=== PATIENT | male | born 1950 | race African-American/Black ===

== ENCOUNTER 2017-12-10 18:55 | Inpatient (IN) | payer MEDICARE, OTHER ==
[~2017-12-10] VITALS: Ht 185.4 cm; Wt 91.5 kg
[~2017-12-10 18:55] MED LIST: ASPI81TA10; ATOR40TA52; CARV3.1240; FER325T PO; FURO80TA3; GABA300C11 PO; NIFE30TA76; THI100I PO; [UNRECOGNIZED DRUG - CODE] OR
[2017-12-10 20:37] LABS: Urine Bacteria NONE SEEN /hpf (None Seen); Urine Blood 2+ /uL (Negative); Urine WBC 5 /hpf (0 - 3)
[2017-12-10 21:07] LABS: Basophils # (auto) 0 uL; Eosinophils # (auto) 0.1 uL; Hemoglobin 7.9 g/dL (13.5-17.5); Lymphocytes # (auto) 0.8 uL; Monocytes # (auto) 0.6 uL; Neutrophils # (auto) 1.7 uL; White Blood Cell 3.2 10^3/uL (4.4-10.8)
[2017-12-10 21:09] LABS: Basophils % (auto) 1.5 % (0.0-2.0); Eosinophils % (auto) 3.2 % (0.0-7.0); Hematocrit 24.3 % (41.0-53.0); Lymphocytes % (auto) 25.3 % (10.0-50.0); Mean Corpuscular Hemoglobin 34.8 pg (28.0-32.0); Mean Corpuscular Hgb Conc. 32.4 g/dL (32.0-36.0); Mean Corpuscular Volume 107.7 fL (80.0-100.0); Monocytes % (auto) 17.8 % (0.0-12.0); Neutrophils % (auto) 52.2 % (37.0-80.0); Nucleated Red Blood Cells % 0.2 %; Platelet Count (auto) 176 10^3/uL (140-450); Red Blood Cells 2.25 10^6/uL (4.5-5.90)
[2017-12-10 21:15] LABS: Red Cell Distribution Width 21.9 % (11.8-14.3)
[2017-12-10 21:19] LABS: Albumin 3.3 g/dL (3.4-5.0); Calcium 8.3 mg/dL (8.5-10.1); Magnesium 1.9 mg/dL (1.6-2.6); Potassium 4.6 mmol/L (3.5-5.1)
[2017-12-10 21:24] LABS: Bilirubin, Total 0.8 mg/dL (0.2-1.0)
[2017-12-10 22:34] LABS: Alcohol, Urine < 3.0 mg/dL (0-5); Amphetamine Screen, Urine NEGATIVE (NEGATIVE); Barbiturate Scree,Urine NEGATIVE (NEGATIVE); Benzodiazephine Screen, Urine POSITIVE (NEGATIVE); Cannabinoid Screen, Urine NEGATIVE (NEGATIVE); Cocaine Screen, Urine NEGATIVE (NEGATIVE); Opiate Scree,Urine NEGATIVE (NEGATIVE); Phencyclidine Screen, Urine NEGATIVE (NEGATIVE)
[2017-12-10 22:39] LABS: Acetaminophen < 2.0 ug/mL (10-30); Salicylate < 1.7 mg/dL (2.8-20.0)
[2017-12-10 23:57] LABS: INR 1.02 (0.9-1.15); Partial Thromboplastin Time 28.6 sec (22.64-33.71); Prothrombin Time 11.1 sec (9.37-12.3)
[2017-12-11] MEDS ORDERED: LABETALOL HCL 5 MG/ML ML 20ML VIAL IV ONE (00:30)
[2017-12-11] MEDS ORDERED: ACETAMINOPHEN 325 MG TAB PO PRN (03:30)
[2017-12-11] MEDS ORDERED: NITROGLYCERIN 0.4 MG SL TAB SL PRN (03:30)
[2017-12-11] MEDS ORDERED: ONDANSETRON HCL 4 MG/2 ML VIAL IV PRN (03:30)
[2017-12-11] MEDS: HYDROcodone-ACET 5/325MG TAB PO PRN ×2 (04:20→07:11)
[2017-12-11] MEDS: FERROUS SULFATE 325 MG TAB PO SCH ×2 (08:00→18:39)
[2017-12-11 09:00] VITALS: BP 158/98
[2017-12-11] MEDS: ASPirin 81 mg TAB PO SCH ×2 (10:00→11:02)
[2017-12-11] MEDS ORDERED: HEPARIN SODIUM (PORCINE) 5000 UNITS/ML 1ML VIAL SC SCH (10:00)
[2017-12-11] MEDS: PANTOPRAZOLE 40 MG/10 ML VIAL IV SCH (10:33)
[2017-12-11] MEDS: FUROSEMIDE 40 MG TAB PO SCH (11:01)
[2017-12-11] MEDS: NIFEdipine ER 30 MG TAB PO SCH (11:01)
[2017-12-11] MEDS: CARVEDILOL 3.125 MG TAB PO SCH ×2 (11:02→21:04)
[2017-12-11 13:18] VITALS: BP 186/116
[2017-12-11] MEDS ORDERED: cloNIDine 0.2 mg/24hr 7DAY PATCH TD SCH (14:30)
[2017-12-11] MEDS ORDERED: EPOETIN ALFA 10,000 UNIT/1 ML VIAL IV ONE (14:45)
[2017-12-11] MEDS ORDERED: SODIUM CHL 0.9% 1000 ML BAG XX ONE (14:45)
[2017-12-11 16:15] VITALS: BP 132/78
[2017-12-11 16:21] VITALS: BP 142/99
[2017-12-11] MEDS ORDERED: LORazepam 2MG/ML-1ML VIAL IV PRN (19:30)
[2017-12-11] MEDS: ATORVASTATIN 20 MG TAB PO SCH (21:04)
[2017-12-11 22:00] VITALS: BP 160/113
[2017-12-11] MEDS: THIAMINE INJ 100 MG, MULTIPLE VITAMIN 10 ML, FOLIC ACID 1 MG, MAGNESIUM SULF SDV 50% 8 ... IV SCH ×5 (22:54)
[2017-12-11] MEDS ORDERED: METOPROLOL TARTRATE 1MG/1ML-5ML VIAL IV ONE (23:15)
[2017-12-12] VITALS (7 sets, daily range): BP systolic 134–162; BP diastolic 87–104
[2017-12-12 07:35] LABS: Basophils # (auto) 0.1 uL; Basophils % (auto) 1.4 % (0.0-2.0); Eosinophils # (auto) 0.1 uL; Eosinophils % (auto) 2.3 % (0.0-7.0); Hematocrit 26.8 % (41.0-53.0); Hemoglobin 8.9 g/dL (13.5-17.5); Lymphocytes # (auto) 0.6 uL; Lymphocytes % (auto) 16.6 % (10.0-50.0); Mean Corpuscular Hemoglobin 35.3 pg (28.0-32.0); Mean Corpuscular Hgb Conc. 33.1 g/dL (32.0-36.0); Mean Corpuscular Volume 106.6 fL (80.0-100.0); Monocytes # (auto) 0.5 uL; Monocytes % (auto) 12.7 % (0.0-12.0); Neutrophils # (auto) 2.5 uL; Nucleated Red Blood Cells % 0.1 %; Platelet Count (auto) 205 10^3/uL (140-450); Red Blood Cells 2.52 10^6/uL (4.5-5.90); White Blood Cell 3.8 10^3/uL (4.4-10.8)
[2017-12-12 07:37] LABS: Red Cell Distribution Width 21.8 % (11.8-14.3)
[2017-12-12 08:05] LABS: Albumin 2.9 g/dL (3.4-5.0); BUN/Creatinine Ratio 2.4; Bilirubin, Total 0.8 mg/dL (0.2-1.0); Calcium 7.3 mg/dL (8.5-10.1); Potassium 3.9 mmol/L (3.5-5.1); Total Protein 6.4 g/dL (6.4-8.2)
[2017-12-12] MEDS: FERROUS SULFATE 325 MG TAB PO SCH ×2 (08:53→18:01)
[2017-12-12] MEDS: PANTOPRAZOLE 40 MG/10 ML VIAL IV SCH (10:09)
[2017-12-12] MEDS: FUROSEMIDE 40 MG TAB PO SCH (10:10)
[2017-12-12] MEDS: ASPirin 81 mg TAB PO SCH (10:10)
[2017-12-12] MEDS: CARVEDILOL 3.125 MG TAB PO SCH ×2 (10:11→22:13)
[2017-12-12] MEDS: NIFEdipine ER 30 MG TAB PO SCH (10:11)
[2017-12-12] MEDS: HYDROcodone-ACET 5/325MG TAB PO PRN ×2 (10:48→22:20)
[2017-12-12] MEDS ORDERED: CARVEDILOL 3.125 MG TAB PO ONE (12:15)
[2017-12-12] MEDS: THIAMINE INJ 100 MG, MULTIPLE VITAMIN 10 ML, FOLIC ACID 1 MG, MAGNESIUM SULF SDV 50% 8 ... IV SCH ×5 (22:13)
[2017-12-12] MEDS: ATORVASTATIN 20 MG TAB PO SCH (22:13)
[2017-12-12 23:23] LABS: Urine Bacteria NONE SEEN /hpf (None Seen); Urine Blood 3+ /uL (Negative); Urine Mucus FEW (None Seen); Urine Specific Gravity 1.014 (1.001-1.035); Urine WBC 12 /hpf (0 - 3)
[2017-12-13] MEDS: HYDROcodone-ACET 5/325MG TAB PO PRN ×4 (02:25→20:47)
[2017-12-13 05:00] VITALS: BP 124/85
[2017-12-13 08:00] VITALS: BP 134/90
[2017-12-13 08:38] VITALS: BP 134/90
[2017-12-13] MEDS: FUROSEMIDE 40 MG TAB PO SCH (09:24)
[2017-12-13] MEDS: FERROUS SULFATE 325 MG TAB PO SCH ×2 (09:25→17:29)
[2017-12-13] MEDS: NIFEdipine ER 30 MG TAB PO SCH (09:25)
[2017-12-13] MEDS: ASPirin 81 mg TAB PO SCH (09:25)
[2017-12-13] MEDS: CARVEDILOL 3.125 MG TAB PO SCH ×2 (09:25→21:49)
[2017-12-13] MEDS: PANTOPRAZOLE 40 MG/10 ML VIAL IV SCH (09:26)
[2017-12-13 13:57] VITALS: BP 142/86
[2017-12-13 17:29] VITALS: BP 146/88
[2017-12-13 21:23] VITALS: BP 135/79
[2017-12-13] MEDS: ATORVASTATIN 20 MG TAB PO SCH (21:48)
[2017-12-13] MEDS: THIAMINE INJ 100 MG, MULTIPLE VITAMIN 10 ML, FOLIC ACID 1 MG, MAGNESIUM SULF SDV 50% 8 ... IV SCH ×5 (22:04)
[2017-12-14] MEDS: HYDROcodone-ACET 10/325MG TAB PO PRN ×3 (03:34→20:29)
[2017-12-14 05:05] VITALS: BP 130/87
[2017-12-14 07:56] LABS: Basophils # (auto) 0 uL; Eosinophils # (auto) 0.2 uL; Lymphocytes # (auto) 1.1 uL; Monocytes # (auto) 0.4 uL; Monocytes % (auto) 13.3 % (0.0-12.0); Neutrophils # (auto) 1.5 uL; Nucleated Red Blood Cells % 0.1 %; White Blood Cell 3.4 10^3/uL (4.4-10.8)
[2017-12-14 07:59] LABS: Basophils % (auto) 1.2 % (0.0-2.0); Eosinophils % (auto) 6.4 % (0.0-7.0); Hematocrit 24.4 % (41.0-53.0); Hemoglobin 8.2 g/dL (13.5-17.5); Lymphocytes % (auto) 32.9 % (10.0-50.0); Mean Corpuscular Hemoglobin 35.6 pg (28.0-32.0); Mean Corpuscular Hgb Conc. 33.6 g/dL (32.0-36.0); Neutrophils % (auto) 46.2 % (37.0-80.0); Platelet Count (auto) 186 10^3/uL (140-450)
[2017-12-14 08:12] LABS: BUN/Creatinine Ratio 2.7; Calcium 7.6 mg/dL (8.5-10.1); Magnesium 2.7 mg/dL (1.6-2.6); Potassium 4.6 mmol/L (3.5-5.1)
[2017-12-14 08:29] LABS: Red Cell Distribution Width 21.3 % (11.8-14.3)
[2017-12-14 09:18] VITALS: BP 132/79
[2017-12-14] MEDS: ASPirin 81 mg TAB PO SCH (11:54)
[2017-12-14] MEDS: CARVEDILOL 3.125 MG TAB PO SCH ×2 (11:54→21:51)
[2017-12-14] MEDS: FERROUS SULFATE 325 MG TAB PO SCH ×2 (11:54→18:00)
[2017-12-14] MEDS: PANTOPRAZOLE 40 MG TAB PO SCH (11:54)
[2017-12-14] MEDS: THIAMINE HCL 100 MG TAB PO SCH (11:55)
[2017-12-14] MEDS: NIFEdipine ER 30 MG TAB PO SCH (11:56)
[2017-12-14] MEDS: FUROSEMIDE 40 MG TAB PO SCH (11:56)
[2017-12-14 14:07] VITALS: BP 112/70
[2017-12-14 16:37] VITALS: BP 113/66
[2017-12-14] MEDS: ATORVASTATIN 20 MG TAB PO SCH (21:23)
[2017-12-14 22:32] VITALS: BP 105/66
[2017-12-15] VITALS (7 sets, daily range): BP systolic 104–142; BP diastolic 59–89
[2017-12-15] MEDS ORDERED: EPOETIN ALFA 10,000 UNIT/1 ML VIAL IV ONE (07:00)
[2017-12-15] MEDS ORDERED: diphenhdrAMINE HCL 50 MG/1 ML VL IV ONE (07:00)
[2017-12-15] MEDS ORDERED: HEPARIN IN NS 1000U/500ML (2UNIT/ML) 500 ML BAG/KIT IV ONE (07:00)
[2017-12-15] MEDS ORDERED: HEPARIN 1,000 UNITS/ml 1ML VIAL IV ONE (08:00)
[2017-12-15] MEDS: CARVEDILOL 3.125 MG TAB PO SCH ×2 (10:00→21:50)
[2017-12-15] MEDS: NIFEdipine ER 30 MG TAB PO SCH (10:00)
[2017-12-15] MEDS: ASPirin 81 mg TAB PO SCH (10:44)
[2017-12-15] MEDS: FERROUS SULFATE 325 MG TAB PO SCH ×2 (10:44→17:22)
[2017-12-15] MEDS: FUROSEMIDE 40 MG TAB PO SCH (10:44)
[2017-12-15] MEDS: PANTOPRAZOLE 40 MG TAB PO SCH (10:44)
[2017-12-15] MEDS: THIAMINE HCL 100 MG TAB PO SCH (10:45)
[2017-12-15] MEDS: HYDROcodone-ACET 10/325MG TAB PO PRN ×3 (10:45→23:32)
[2017-12-15] MEDS: ATORVASTATIN 20 MG TAB PO SCH (21:51)
[2017-12-16 05:39] VITALS: BP 130/76
[2017-12-16] MEDS: HYDROcodone-ACET 10/325MG TAB PO PRN (05:47)
[2017-12-16 08:00] VITALS: BP 131/72
[2017-12-16] MEDS: FERROUS SULFATE 325 MG TAB PO SCH (08:00)
[2017-12-16] MEDS: CARVEDILOL 3.125 MG TAB PO SCH (08:58)
[2017-12-16] MEDS: PANTOPRAZOLE 40 MG TAB PO SCH (08:58)
[2017-12-16] MEDS: ASPirin 81 mg TAB PO SCH (08:58)
[2017-12-16] MEDS: FUROSEMIDE 40 MG TAB PO SCH (08:58)
[2017-12-16] MEDS: THIAMINE HCL 100 MG TAB PO SCH (08:58)
[2017-12-16] MEDS: NIFEdipine ER 30 MG TAB PO SCH (08:58)
[2017-12-16 09:00] VITALS: BP 131/72
== END 2017-12-16 09:30 | disposition home or self-care (01) | DRG 91 ==
LOC: ER 18:55 → TELE 18:56 → TELE-CENTR 12-11 08:09
PROVIDERS: ADMIT Nurse Practitioner; ATTEND Internal Medicine
PROC: 5A1D70Z Performance of Urinary Filtration, Intermittent, Less than 6 Hours Per Day (ICD-10-PCS; principal; 2017-12-11)
PROC: 5A1D70Z Performance of Urinary Filtration, Intermittent, Less than 6 Hours Per Day (ICD-10-PCS; 2017-12-15)
DX: G92 Toxic encephalopathy (principal); N18.6 End stage renal disease; I13.2 Hypertensive heart and chronic kidney disease with heart failure and with stage 5 chronic kidney disease, or end stage renal disease; F20.9 Schizophrenia, unspecified; G62.9 Polyneuropathy, unspecified; F03.90 Unspecified dementia, unspecified severity, without behavioral disturbance, psychotic disturbance, mood disturbance, and anxiety; I50.43 Acute on chronic combined systolic (congestive) and diastolic (congestive) heart failure; Z88.5 Allergy status to narcotic agent; E86.0 Dehydration; D63.1 Anemia in chronic kidney disease; E78.5 Hyperlipidemia, unspecified; I25.10 Atherosclerotic heart disease of native coronary artery without angina pectoris; R74.8 Abnormal levels of other serum enzymes; E87.6 Hypokalemia; F10.20 Alcohol dependence, uncomplicated; Z99.2 Dependence on renal dialysis; Z86.73 Personal history of transient ischemic attack (TIA), and cerebral infarction without residual deficits; I25.2 Old myocardial infarction; Z79.82 Long term (current) use of aspirin; Z79.899 Other long term (current) drug therapy; Z82.49 Family history of ischemic heart disease and other diseases of the circulatory system; Z83.3 Family history of diabetes mellitus
CPT/HCPCS: 36415; 70450; 70551; 71045; 80048; 80053; 80307; 80320; 80329; 81001; 83735; 84484; 85025; 85610; 85730; 87081; 90935; 92610; 93005; 93306; 93886; 95819; 96372; 97116; 97530; C9113; J0885; J1642; J2405

== ENCOUNTER 2017-12-27 16:07 | Inpatient (IN) | payer OTHER ==
[~2017-12-27] VITALS: Ht 182.9 cm; Wt 86.0 kg
[2017-12-27] MEDS ORDERED: ASPirin-EC 81 mg tab PO ONE (18:30)
[2017-12-27] MEDS ORDERED: MEPERIDINE HCL (25 MG/ML) 1ML VIAL IV ONE (18:30)
[2017-12-27] MEDS ORDERED: ONDANSETRON HCL 4 MG/2 ML VIAL IV ONE (18:30)
[2017-12-27 18:44] LABS: INR 1.17 (0.9-1.15); Partial Thromboplastin Time 28.5 sec (22.64-33.71); Prothrombin Time 12.8 sec (9.37-12.3)
[2017-12-27 18:54] LABS: Eosinophils # (auto) 0.1 uL; Hemoglobin 8.8 g/dL (13.5-17.5); Monocytes # (auto) 0.4 uL; White Blood Cell 5.7 10^3/uL (4.4-10.8)
[2017-12-27 18:56] LABS: Alanine Aminotransferase 32 U/L (16-61); Albumin 3.9 g/dL (3.4-5.0); Alkaline Phosphatase 85 U/L (45-117); Anion Gap 16 (5-15); Aspartate Aminotransferase 43 U/L (15-37); BUN/Creatinine Ratio 2.9; Basophils # (auto) 0.1 uL; Bilirubin, Total 1.4 mg/dL (0.2-1.0); Blood Alcohol < 3.0 mg/dL (0-5); Blood Urea Nitrogen 29 mg/dL (7-18); Calcium 8.8 mg/dL (8.5-10.1); Carbon Dioxide 27 mmol/L (21-32); Chloride 97 mmol/L (98-107); Eosinophils % (auto) 1.4 % (0.0-7.0); GFR African American 7 mL/min; GFR Non-African American 6 mL/min; Glucose 80 mg/dL (74-106); Hematocrit 27.2 % (41.0-53.0); Lymphocytes % (auto) 18.1 % (10.0-50.0); Magnesium 2.4 mg/dL (1.6-2.6); Mean Corpuscular Hemoglobin 33.8 pg (28.0-32.0); Mean Corpuscular Hgb Conc. 32.2 g/dL (32.0-36.0); Neutrophils # (auto) 4.1 uL; Neutrophils % (auto) 72.5 % (37.0-80.0); Nucleated Red Blood Cells % 0.1 %; Platelet Count (auto) 198 10^3/uL (140-450); Potassium 5.3 mmol/L (3.5-5.1); Red Blood Cells 2.59 10^6/uL (4.5-5.90); Sodium 140 mmol/L (136-145); Total Protein 8.1 g/dL (6.4-8.2)
[2017-12-27 19:03] LABS: Red Cell Distribution Width 21.3 % (11.8-14.3)
[2017-12-27] MEDS ORDERED: ONDANSETRON HCL 4 MG/2 ML VIAL IV PRN (21:30)
[2017-12-27] MEDS ORDERED: ACETAMINOPHEN 325 MG TAB PO PRN (21:30)
[2017-12-27] MEDS ORDERED: cloNIDine HCL 0.1 MG TAB PO PRN (21:30)
[2017-12-27] MEDS ORDERED: TEMAZEPAM 15 MG CAP PO PRN (21:30)
[2017-12-27] MEDS ORDERED: NITROGLYCERIN 0.4 MG SL TAB SL PRN (21:30)
[2017-12-27] MEDS ORDERED: MEPERIDINE HCL (25 MG/ML) 1ML VIAL IV PRN (21:30)
[2017-12-27] MEDS ORDERED: HYDROcodone-ACET 5/325MG TAB PO PRN (21:30)
[2017-12-27] MEDS ORDERED: MORPHINE SULFATE 4 MG/ML SYR/VIAL IV PRN (21:30)
[2017-12-27] MEDS ORDERED: ATORVASTATIN 20 MG TAB PO SCH (22:00)
[2017-12-27] MEDS ORDERED: diphenhdrAMINE HCL 25 MG CAP PO ONE (22:15)
[2017-12-27] MEDS: CARVEDILOL 3.125 MG TAB PO SCH (22:40)
[2017-12-27] MEDS: HEPARIN SODIUM (PORCINE) 5000 UNITS/ML 1ML VIAL SC SCH (22:40)
[2017-12-28 05:19] VITALS: BP 148/97
[2017-12-28 07:02] LABS: Basophils # (auto) 0 uL; Eosinophils # (auto) 0 uL; Hemoglobin 8.7 g/dL (13.5-17.5); Lymphocytes # (auto) 0.8 uL; Mean Corpuscular Volume 104.7 fL (80.0-100.0); Monocytes # (auto) 0.4 uL; Neutrophils % (auto) 80.5 % (37.0-80.0)
[2017-12-28 07:05] LABS: Basophils % (auto) 0.6 % (0.0-2.0); Eosinophils % (auto) 0.2 % (0.0-7.0); Hematocrit 26.8 % (41.0-53.0); Lymphocytes % (auto) 12.5 % (10.0-50.0); Mean Corpuscular Hgb Conc. 32.6 g/dL (32.0-36.0); Monocytes % (auto) 6.2 % (0.0-12.0); Nucleated Red Blood Cells % 0.1 %; Red Blood Cells 2.56 10^6/uL (4.5-5.90); White Blood Cell 6.2 10^3/uL (4.4-10.8)
[2017-12-28 07:09] LABS: Mean Corpuscular Hemoglobin 33.9 pg (28.0-32.0); Platelet Count (auto) 165 10^3/uL (140-450); Red Cell Distribution Width 21.2 % (11.8-14.3)
[2017-12-28 07:16] LABS: Albumin 3.6 g/dL (3.4-5.0); BUN/Creatinine Ratio 3.7; Calcium 9.2 mg/dL (8.5-10.1)
[2017-12-28 07:19] LABS: Potassium 6.2 mmol/L (3.5-5.1)
[2017-12-28 07:24] LABS: Bilirubin, Total 2.8 mg/dL (0.2-1.0); Total Protein 7.3 g/dL (6.4-8.2)
[2017-12-28 08:00] VITALS: BP 114/67
[2017-12-28] MEDS ORDERED: EPOETIN ALFA 10,000 UNIT/1 ML VIAL IV ONE (08:45)
[2017-12-28] MEDS ORDERED: SODIUM CHL 0.9% 1000 ML BAG XX ONE (08:45)
[2017-12-28] MEDS ORDERED: PANTOPRAZOLE 40 MG TAB PO SCH (10:00)
[2017-12-28] MEDS: HEPARIN SODIUM (PORCINE) 5000 UNITS/ML 1ML VIAL SC SCH (10:00)
[2017-12-28] MEDS ORDERED: LISINOPRIL 20 MG TAB PO SCH (10:00)
[2017-12-28] MEDS ORDERED: NIFEdipine ER 30 MG TAB PO SCH (10:00)
[2017-12-28] MEDS ORDERED: FUROSEMIDE 40 MG TAB PO SCH (10:00)
[2017-12-28 12:00] VITALS: BP 156/99
[2017-12-28 14:16] LABS: BUN/Creatinine Ratio 3.3; Calcium 8.4 mg/dL (8.5-10.1); Potassium 3.9 mmol/L (3.5-5.1)
[2017-12-28] MEDS: CARVEDILOL 3.125 MG TAB PO SCH (14:51)
[2017-12-28 15:14] VITALS: BP 156/99
[2017-12-28 15:31] VITALS: BP 156/99
[2017-12-28 17:00] VITALS: BP 142/100
== END 2017-12-28 19:10 | disposition home or self-care (01) | DRG 313 ==
LOC: ER 16:07 → TELE 16:08 → TELE-CENTR 22:53
PROVIDERS: ADMIT Nurse Practitioner; ATTEND Internal Medicine
PROC: 5A1D70Z Performance of Urinary Filtration, Intermittent, Less than 6 Hours Per Day (ICD-10-PCS; principal; 2017-12-28)
DX: R07.89 Other chest pain (principal); I25.10 Atherosclerotic heart disease of native coronary artery without angina pectoris; I13.2 Hypertensive heart and chronic kidney disease with heart failure and with stage 5 chronic kidney disease, or end stage renal disease; E11.22 Type 2 diabetes mellitus with diabetic chronic kidney disease; N18.6 End stage renal disease; E87.5 Hyperkalemia; I50.32 Chronic diastolic (congestive) heart failure; D63.8 Anemia in other chronic diseases classified elsewhere; E78.5 Hyperlipidemia, unspecified; F03.90 Unspecified dementia, unspecified severity, without behavioral disturbance, psychotic disturbance, mood disturbance, and anxiety; F20.9 Schizophrenia, unspecified; F31.9 Bipolar disorder, unspecified; F41.9 Anxiety disorder, unspecified; R74.8 Abnormal levels of other serum enzymes; R79.89 Other specified abnormal findings of blood chemistry; G47.00 Insomnia, unspecified; Z88.5 Allergy status to narcotic agent; Z79.899 Other long term (current) drug therapy; Z86.73 Personal history of transient ischemic attack (TIA), and cerebral infarction without residual deficits; I25.2 Old myocardial infarction; Z83.3 Family history of diabetes mellitus; Z99.2 Dependence on renal dialysis; Z79.82 Long term (current) use of aspirin
CPT/HCPCS: 36415; 70450; 71045; 80048; 80053; 80320; 83735; 83880; 84484; 85025; 85610; 85730; 87081; 90935; 93005; 94761; 96374; 96375; J0885; J2405

== ENCOUNTER 2018-02-24 16:53 | Inpatient (IN) | payer OTHER ==
[~2018-02-24] VITALS: Ht 182.9 cm; Wt 79.8 kg
[2018-02-24] MEDS ORDERED: SODIUM CHLORIDE 0.9% 1,000 ML IVB ONE (17:05)
[2018-02-24 18:06] LABS: Basophils # (auto) 0.1 uL; Basophils % (auto) 0.7 % (0.0-2.0); Eosinophils # (auto) 0 uL; Eosinophils % (auto) 0.4 % (0.0-7.0); Hematocrit 26.4 % (41.0-53.0); Hemoglobin 8.7 g/dL (13.5-17.5); Lymphocytes # (auto) 0.8 uL; Lymphocytes % (auto) 8.6 % (10.0-50.0); Mean Corpuscular Hemoglobin 29.8 pg (28.0-32.0); Mean Corpuscular Volume 90.3 fL (80.0-100.0); Monocytes # (auto) 0.9 uL; Monocytes % (auto) 9.8 % (0.0-12.0); Neutrophils # (auto) 7.3 uL; Neutrophils % (auto) 80.5 % (37.0-80.0); Nucleated Red Blood Cells % 0.1 %; Platelet Count (auto) 148 10^3/uL (140-450); Red Blood Cells 2.93 10^6/uL (4.5-5.90); Red Cell Distribution Width 18.2 % (11.8-14.3); White Blood Cell 9.1 10^3/uL (4.4-10.8)
[2018-02-24 18:12] LABS: INR 1.14 (0.9-1.15); Partial Thromboplastin Time 33.4 sec (22.64-33.71); Prothrombin Time 12.4 sec (9.37-12.3)
[2018-02-24 18:16] LABS: Blood Alcohol < 3.0 mg/dL (0-5); Magnesium 1.8 mg/dL (1.6-2.6)
[2018-02-24 18:20] LABS: Albumin 2.9 g/dL (3.4-5.0); Calcium 8.3 mg/dL (8.5-10.1); Potassium 4.3 mmol/L (3.5-5.1)
[2018-02-24 18:28] LABS: BUN/Creatinine Ratio 3.5; Bilirubin, Total 1.4 mg/dL (0.2-1.0); Total Protein 6.7 g/dL (6.4-8.2)
[2018-02-24] MEDS ORDERED: LORazepam 0.5 MG TAB PO PRN (19:45)
[2018-02-24] MEDS ORDERED: VANCOMYCIN PER PHARMACY 0 MG IV SCH (19:45)
[2018-02-24] MEDS ORDERED: PROMETHAZINE HCL 25 MG/ML 1ML IV PRN (19:45)
[2018-02-24] MEDS ORDERED: cefTRIAXone 1GM/10ml IVPUSH 10 ML IV ONE (19:45)
[2018-02-24] MEDS ORDERED: TEMAZEPAM 15 MG CAP PO PRN (19:45)
[2018-02-24] MEDS ORDERED: LACTULOSE 20Gm/30ML SOLN PO PRN (19:45)
[2018-02-24] MEDS ORDERED: HYDROcodone-ACET 5/325MG TAB PO PRN (19:45)
[2018-02-24] MEDS ORDERED: HYDROmorphone HCL 2 MG/ML VL IV PRN (19:45)
[2018-02-24] MEDS ORDERED: VANCOMYCIN 1GM/250ML 250 ML IV ONE ×2 (19:45→22:30)
[2018-02-24] MEDS ORDERED: NITROGLYCERIN 0.4 MG SL TAB SL PRN (19:45)
[2018-02-24 20:44] LABS: Folate (Folic Acid) 21.93 ng/mL (5.38-24)
[2018-02-24 22:00] VITALS: BP 117/73
[2018-02-24] MEDS: SODIUM CHLOR 0.9% PF (SALINE LOCK) 10ML VIAL IV SCH (22:00)
[2018-02-24] MEDS: ATORVASTATIN 20 MG TAB PO SCH (22:59)
[2018-02-24] MEDS: GABAPENTIN 300 MG CAP PO SCH (23:00)
[2018-02-24] MEDS: CARVEDILOL 3.125 MG TAB PO SCH (23:00)
[2018-02-24] MEDS: FAMOTIDINE (10MG/ML) 2ML VL IV SCH (23:37)
[2018-02-25 05:00] VITALS: BP 120/78
[2018-02-25] MEDS: SODIUM CHLOR 0.9% PF (SALINE LOCK) 10ML VIAL IV SCH ×3 (05:35→22:00)
[2018-02-25 07:34] LABS: Basophils # (auto) 0.1 uL; Basophils % (auto) 0.7 % (0.0-2.0); Eosinophils # (auto) 0.2 uL; Eosinophils % (auto) 2.1 % (0.0-7.0); Hemoglobin 8.8 g/dL (13.5-17.5); Lymphocytes % (auto) 10.5 % (10.0-50.0); Mean Corpuscular Hemoglobin 29.4 pg (28.0-32.0); Mean Corpuscular Hgb Conc. 32.5 g/dL (32.0-36.0); Mean Corpuscular Volume 90.4 fL (80.0-100.0); Monocytes # (auto) 0.9 uL; Monocytes % (auto) 9.1 % (0.0-12.0); Neutrophils # (auto) 7.3 uL; Neutrophils % (auto) 77.6 % (37.0-80.0); Nucleated Red Blood Cells % 0.1 %; Platelet Count (auto) 144 10^3/uL (140-450); Red Blood Cells 2.98 10^6/uL (4.5-5.90); Red Cell Distribution Width 17.7 % (11.8-14.3); White Blood Cell 9.4 10^3/uL (4.4-10.8)
[2018-02-25 08:00] VITALS: BP 111/74
[2018-02-25 08:05] LABS: Albumin 2.8 g/dL (3.4-5.0); BUN/Creatinine Ratio 3.7; Potassium 4.3 mmol/L (3.5-5.1); Total Protein 6.3 g/dL (6.4-8.2)
[2018-02-25 09:00] VITALS: BP 111/74
[2018-02-25] MEDS ORDERED: cefTRIAXone 1GM/10ml IVPUSH 10 ML IV SCH (09:00)
[2018-02-25] MEDS: FAMOTIDINE (10MG/ML) 2ML VL IV SCH (09:32)
[2018-02-25] MEDS: ASPirin 81 mg TAB PO SCH ×2 (09:34→10:41)
[2018-02-25] MEDS: FERROUS SULFATE 325 MG TAB PO SCH ×2 (09:34→10:41)
[2018-02-25] MEDS: CARVEDILOL 3.125 MG TAB PO SCH ×3 (09:34→22:53)
[2018-02-25] MEDS: ENALAPRIL MALEATE 2.5 MG TAB PO SCH ×2 (09:35→10:00)
[2018-02-25] MEDS: NIFEdipine ER 30 MG TAB PO SCH ×2 (09:35→10:00)
[2018-02-25] MEDS ORDERED: NITROGLYCERIN 0.2MG/HR TOPICAL PATCH TD SCH (10:00)
[2018-02-25] MEDS ORDERED: FUROSEMIDE 100 MG/10ML VIAL IV SCH (10:00)
[2018-02-25] MEDS ORDERED: SODIUM CHL 0.9% 1000 ML BAG XX ONE (10:00)
[2018-02-25] MEDS ORDERED: ENOXAPARIN SOD 30 MG/0.3 ML SYRINGE SC SCH (10:00)
[2018-02-25] MEDS ORDERED: EPOETIN ALFA 10,000 UNIT/1 ML VIAL IV ONE (10:00)
[2018-02-25 10:29] LABS: Urine Bacteria NONE SEEN /hpf (None Seen); Urine WBC 62 /hpf (0 - 3)
[2018-02-25 10:34] LABS: Alcohol, Urine < 3.0 mg/dL (0-5); Amphetamine Screen, Urine NEGATIVE (NEGATIVE); Barbiturate Scree,Urine NEGATIVE (NEGATIVE); Benzodiazephine Screen, Urine POSITIVE (NEGATIVE); Cannabinoid Screen, Urine NEGATIVE (NEGATIVE); Cocaine Screen, Urine NEGATIVE (NEGATIVE); Opiate Scree,Urine NEGATIVE (NEGATIVE); Phencyclidine Screen, Urine NEGATIVE (NEGATIVE)
[2018-02-25 13:00] VITALS: BP 113/73
[2018-02-25 16:54] VITALS: BP 133/84
[2018-02-25] MEDS: ACETAMINOPHEN 500 MG TAB PO PRN (18:06)
[2018-02-25] MEDS ORDERED: diphenhdrAMINE HCL 50 MG/1 ML VL IV ONE (19:00)
[2018-02-25 22:00] VITALS: BP 126/85
[2018-02-25] MEDS: ATORVASTATIN 20 MG TAB PO SCH (22:52)
[2018-02-25] MEDS: HEPARIN SODIUM (PORCINE) 5000 UNITS/ML 1ML VIAL SC SCH (22:52)
[2018-02-25] MEDS: GABAPENTIN 300 MG CAP PO SCH (22:53)
[2018-02-26 05:00] VITALS: BP 129/64
[2018-02-26 06:04] LABS: Basophils # (auto) 0 uL; Monocytes # (auto) 0.9 uL; Nucleated Red Blood Cells % 0.1 %; Platelet Count (auto) 125 10^3/uL (140-450); Red Blood Cells 2.64 10^6/uL (4.5-5.90); White Blood Cell 7.1 10^3/uL (4.4-10.8)
[2018-02-26 06:06] LABS: Basophils % (auto) 0.4 % (0.0-2.0); Eosinophils # (auto) 0.4 uL; Eosinophils % (auto) 5.2 % (0.0-7.0); Hematocrit 23.7 % (41.0-53.0); Hemoglobin 7.9 g/dL (13.5-17.5); Lymphocytes # (auto) 0.8 uL; Lymphocytes % (auto) 11.5 % (10.0-50.0); Mean Corpuscular Hgb Conc. 33.5 g/dL (32.0-36.0); Mean Corpuscular Volume 89.8 fL (80.0-100.0); Monocytes % (auto) 12.7 % (0.0-12.0); Neutrophils % (auto) 70.2 % (37.0-80.0); Red Cell Distribution Width 17.6 % (11.8-14.3)
[2018-02-26] MEDS: SODIUM CHLOR 0.9% PF (SALINE LOCK) 10ML VIAL IV SCH ×2 (06:08→13:57)
[2018-02-26 06:21] LABS: BUN/Creatinine Ratio 4.1; Potassium 4.2 mmol/L (3.5-5.1)
[2018-02-26 08:54] VITALS: BP 110/69
[2018-02-26] MEDS: ASPirin 81 mg TAB PO SCH (09:21)
[2018-02-26] MEDS: NIFEdipine ER 30 MG TAB PO SCH (09:21)
[2018-02-26] MEDS: FERROUS SULFATE 325 MG TAB PO SCH (09:22)
[2018-02-26] MEDS: CARVEDILOL 3.125 MG TAB PO SCH (09:22)
[2018-02-26] MEDS: ENALAPRIL MALEATE 2.5 MG TAB PO SCH (09:23)
[2018-02-26] MEDS: HEPARIN SODIUM (PORCINE) 5000 UNITS/ML 1ML VIAL SC SCH (09:26)
[2018-02-26] MEDS: FAMOTIDINE (10MG/ML) 2ML VL IV SCH (09:29)
[2018-02-26] MEDS ORDERED: FUROSEMIDE 40 MG TAB PO SCH (10:00)
[2018-02-26] MEDS ORDERED: MULTIPLE VITAMIN TAB PO SCH (10:00)
[2018-02-26] MEDS: ACETAMINOPHEN 500 MG TAB PO PRN (11:03)
[2018-02-26 13:00] VITALS: BP 116/76
[2018-02-26 15:06] VITALS: BP 105/76
== END 2018-02-26 17:01 | disposition home or self-care (01) | DRG 91 ==
LOC: ER 17:05 → TELE 17:06 → TELE-WESTW 21:15
PROVIDERS: ADMIT Internal Medicine; ATTEND Internal Medicine
PROC: 5A1D70Z Performance of Urinary Filtration, Intermittent, Less than 6 Hours Per Day (ICD-10-PCS; principal; 2018-02-25)
DX: G92 Toxic encephalopathy (principal); N18.6 End stage renal disease; I13.2 Hypertensive heart and chronic kidney disease with heart failure and with stage 5 chronic kidney disease, or end stage renal disease; F20.9 Schizophrenia, unspecified; I50.42 Chronic combined systolic (congestive) and diastolic (congestive) heart failure; E78.5 Hyperlipidemia, unspecified; D63.8 Anemia in other chronic diseases classified elsewhere; I25.10 Atherosclerotic heart disease of native coronary artery without angina pectoris; R29.6 Repeated falls; F29 Unspecified psychosis not due to a substance or known physiological condition; R31.9 Hematuria, unspecified; T40.605A Adverse effect of unspecified narcotics, initial encounter; I25.2 Old myocardial infarction; Y92.89 Other specified places as the place of occurrence of the external cause; Z82.49 Family history of ischemic heart disease and other diseases of the circulatory system; Z83.3 Family history of diabetes mellitus; Z86.73 Personal history of transient ischemic attack (TIA), and cerebral infarction without residual deficits; Z99.2 Dependence on renal dialysis
CPT/HCPCS: 36415; 51702; 70450; 71045; 80048; 80053; 80061; 80202; 80307; 80320; 81001; 82550; 82607; 82746; 82962; 83735; 83880; 84443; 84484; 85025; 85610; 85652; 85730; 87040; 87081; 87086; 90935; 93005; 94761; 96361; 96374; J0885; J1642; J3490

== ENCOUNTER 2018-04-20 20:19 | Emergency (ER) | payer OTHER ==
[~2018-04-20] VITALS: Ht 182.9 cm; Wt 68.0 kg
[~2018-04-20 20:19] MED LIST changes: +LEVO25TA6 PO
[2018-04-20 21:17] VITALS: BP 132/101
[2018-04-20] MEDS ORDERED: cefTRIAXone SOD 1,000 MG VL IM ONE (22:00)
== END 2018-04-20 22:45 | disposition home or self-care (01) ==
LOC: ER 20:19
DX: B86 Scabies (principal); I13.2 Hypertensive heart and chronic kidney disease with heart failure and with stage 5 chronic kidney disease, or end stage renal disease; N18.6 End stage renal disease; I25.10 Atherosclerotic heart disease of native coronary artery without angina pectoris; I25.2 Old myocardial infarction; Z79.82 Long term (current) use of aspirin
CPT/HCPCS: 96372; 99283; J0696

== ENCOUNTER 2018-04-26 13:06 | Inpatient (IN) | payer OTHER ==
[~2018-04-26] VITALS: Ht 182.9 cm; Wt 86.3 kg
[2018-04-26] MEDS ORDERED: VANCOMYCIN PER PHARMACY 0 MG IV SCH (14:30)
[2018-04-26] MEDS ORDERED: cefTRIAXone 1GM/10ml IVPUSH 10 ML IV ONE (14:30)
[2018-04-26] MEDS ORDERED: NITROGLYCERIN 0.4 MG SL TAB SL PRN (14:30)
[2018-04-26 14:47] LABS: Basophils # (auto) 0.1 uL; Basophils % (auto) 1.9 % (0.0-2.0); Eosinophils # (auto) 0 uL; Eosinophils % (auto) 0.9 % (0.0-7.0); Hematocrit 32.2 % (41.0-53.0); Hemoglobin 10.4 g/dL (13.5-17.5); Lymphocytes # (auto) 0.7 uL; Lymphocytes % (auto) 15.5 % (10.0-50.0); Mean Corpuscular Hemoglobin 29.5 pg (28.0-32.0); Mean Corpuscular Hgb Conc. 32.1 g/dL (32.0-36.0); Mean Corpuscular Volume 91.7 fL (80.0-100.0); Monocytes # (auto) 0.5 uL; Monocytes % (auto) 11.8 % (0.0-12.0); Neutrophils # (auto) 3.2 uL; Neutrophils % (auto) 69.9 % (37.0-80.0); Platelet Count (auto) 158 10^3/uL (140-450); Red Blood Cells 3.52 10^6/uL (4.5-5.90); White Blood Cell 4.6 10^3/uL (4.4-10.8)
[2018-04-26 14:50] LABS: INR 1.55 (0.9-1.15); Partial Thromboplastin Time 30.6 sec (23.78-33.04); Prothrombin Time 16.2 sec (9.27-12.13)
[2018-04-26 15:03] LABS: Albumin 3.3 g/dL (3.4-5.0); BUN/Creatinine Ratio 4.7; Bilirubin, Total 2.7 mg/dL (0.2-1.0); Calcium 8.9 mg/dL (8.5-10.1); Potassium 3.8 mmol/L (3.5-5.1); Total Protein 6.8 g/dL (6.4-8.2)
[2018-04-26 15:06] LABS: Red Cell Distribution Width 22.6 % (11.8-14.3)
[2018-04-26] MEDS: SODIUM CHLORIDE 0.9% 1,000 ML IV SCH (15:08)
[2018-04-26] MEDS ORDERED: VANCOMYCIN 1GM/250ML 250 ML IV ONE (16:00)
[2018-04-26 20:02] LABS: Lactic Acid w/Reflex 2.7 mmol/L (0.4-2.0)
[2018-04-26 21:00] VITALS: BP 127/91
[2018-04-26] MEDS ORDERED: ATORVASTATIN 20 MG TAB PO SCH (22:00)
[2018-04-26] MEDS ORDERED: FAMOTIDINE 20 MG TAB PO SCH (22:00)
[2018-04-26] MEDS: GABAPENTIN 300 MG CAP PO SCH (22:30)
[2018-04-26] MEDS ORDERED: diphenhdrAMINE HCL 25 MG CAP PO ONE (22:30)
[2018-04-26] MEDS: CARVEDILOL 3.125 MG TAB PO SCH (22:30)
[2018-04-27 05:00] VITALS: BP 100/69
[2018-04-27] MEDS: LEVOTHYROXINE SODIUM 25 MCG TAB PO SCH (06:12)
[2018-04-27 06:17] LABS: Basophils # (auto) 0 uL; Basophils % (auto) 0.6 % (0.0-2.0); Eosinophils # (auto) 0.1 uL; Eosinophils % (auto) 1.8 % (0.0-7.0); Hematocrit 29.7 % (41.0-53.0); Hemoglobin 9.8 g/dL (13.5-17.5); Lymphocytes # (auto) 0.8 uL; Lymphocytes % (auto) 20.4 % (10.0-50.0); Mean Corpuscular Hemoglobin 30.6 pg (28.0-32.0); Mean Corpuscular Hgb Conc. 32.8 g/dL (32.0-36.0); Mean Corpuscular Volume 93.3 fL (80.0-100.0); Monocytes # (auto) 0.5 uL; Monocytes % (auto) 13.1 % (0.0-12.0); Neutrophils # (auto) 2.5 uL; Neutrophils % (auto) 64.1 % (37.0-80.0); Nucleated Red Blood Cells % 0.7 %; Platelet Count (auto) 117 10^3/uL (140-450); Red Blood Cells 3.19 10^6/uL (4.5-5.90); White Blood Cell 3.9 10^3/uL (4.4-10.8)
[2018-04-27 06:18] LABS: Potassium 3.5 mmol/L (3.5-5.1)
[2018-04-27 06:25] LABS: Red Cell Distribution Width 22.8 % (11.8-14.3)
[2018-04-27 06:28] LABS: Albumin 2.5 g/dL (3.4-5.0); BUN/Creatinine Ratio 4.6; Calcium 7.9 mg/dL (8.5-10.1)
[2018-04-27 06:30] LABS: Bilirubin, Total 1.8 mg/dL (0.2-1.0)
[2018-04-27 08:00] VITALS: BP 119/75
[2018-04-27 09:00] VITALS: BP 119/79
[2018-04-27] MEDS ORDERED: cefTRIAXone 1GM/10ml IVPUSH 10 ML IV SCH (09:00)
[2018-04-27] MEDS: FERROUS SULFATE 325 MG TAB PO SCH (10:22)
[2018-04-27] MEDS: THIAMINE HCL 100 MG TAB PO SCH (10:22)
[2018-04-27] MEDS: MULTIPLE VITAMIN TAB PO SCH (10:23)
[2018-04-27] MEDS: NIFEdipine ER 30 MG TAB PO SCH (10:23)
[2018-04-27] MEDS: CARVEDILOL 3.125 MG TAB PO SCH ×2 (10:23→21:47)
[2018-04-27] MEDS: B-COMPLEX W/ C & FOLIC ACID(NEPHROVITE TAB) PO SCH (10:24)
[2018-04-27] MEDS: FAMOTIDINE 20 MG TAB PO SCH (10:24)
[2018-04-27] MEDS: ASPirin-EC 81 mg tab PO SCH (10:24)
[2018-04-27] MEDS: FUROSEMIDE 40 MG TAB PO SCH (10:24)
[2018-04-27] MEDS: SODIUM CHLORIDE 0.9% 1,000 ML IV SCH (10:25)
[2018-04-27 13:00] VITALS: BP 133/78
[2018-04-27] MEDS ORDERED: LEVOFLOXACIN 750MG 150 ML IV ONE (13:30)
[2018-04-27] MEDS ORDERED: VANCOMYCIN 1GM/250ML 250 ML IV ONE (16:00)
[2018-04-27 17:00] VITALS: BP 104/71
[2018-04-27] MEDS: diphenhdrAMINE HCL 25 MG CAP PO PRN (18:47)
[2018-04-27] MEDS: HYDROcodone-ACET 5/325MG TAB PO PRN (20:27)
[2018-04-27] MEDS ORDERED: diphenhdrAMINE HCL 25 MG CAP PO ONE (20:45)
[2018-04-27] MEDS: GABAPENTIN 300 MG CAP PO SCH (21:47)
[2018-04-27] MEDS: HYDROCORTONE 1% TOPICAL CREAM 30 GM TUBE TOP SCH (21:47)
[2018-04-27] MEDS: TEMAZEPAM 15 MG CAP PO PRN (21:49)
[2018-04-27 22:00] VITALS: BP 105/65
[2018-04-28] MEDS: HYDROcodone-ACET 5/325MG TAB PO PRN ×2 (00:49→06:25)
[2018-04-28] MEDS: SODIUM CHLORIDE 0.9% 1,000 ML IV SCH ×2 (00:54→13:51)
[2018-04-28] MEDS: diphenhdrAMINE HCL 25 MG CAP PO PRN ×3 (01:31→22:07)
[2018-04-28 05:13] VITALS: BP 105/68
[2018-04-28] MEDS: HYDROCORTONE 1% TOPICAL CREAM 30 GM TUBE TOP SCH ×3 (06:24→22:07)
[2018-04-28] MEDS: LEVOTHYROXINE SODIUM 25 MCG TAB PO SCH (06:25)
[2018-04-28 09:00] VITALS: BP 103/75
[2018-04-28] MEDS: LEVOFLOXACIN 500MG 100 ML IV SCH (09:20)
[2018-04-28] MEDS: FAMOTIDINE 20 MG TAB PO SCH (09:20)
[2018-04-28] MEDS: ASPirin-EC 81 mg tab PO SCH (09:21)
[2018-04-28] MEDS: THIAMINE HCL 100 MG TAB PO SCH (09:21)
[2018-04-28] MEDS: MULTIPLE VITAMIN TAB PO SCH (09:21)
[2018-04-28] MEDS: B-COMPLEX W/ C & FOLIC ACID(NEPHROVITE TAB) PO SCH (09:21)
[2018-04-28] MEDS: FERROUS SULFATE 325 MG TAB PO SCH (09:21)
[2018-04-28] MEDS: FUROSEMIDE 40 MG TAB PO SCH (09:22)
[2018-04-28] MEDS: CARVEDILOL 3.125 MG TAB PO SCH ×2 (09:23→22:06)
[2018-04-28] MEDS: NIFEdipine ER 30 MG TAB PO SCH (09:23)
[2018-04-28 13:00] VITALS: BP 108/74
[2018-04-28 17:00] VITALS: BP 101/72
[2018-04-28] MEDS: HYDROcodone-ACET 10/325MG TAB PO PRN (20:03)
[2018-04-28 22:00] VITALS: BP 101/73
[2018-04-28] MEDS: GABAPENTIN 300 MG CAP PO SCH (22:06)
[2018-04-29] MEDS: HYDROcodone-ACET 10/325MG TAB PO PRN ×4 (02:08→22:05)
[2018-04-29 04:53] VITALS: BP 118/68
[2018-04-29] MEDS: HYDROCORTONE 1% TOPICAL CREAM 30 GM TUBE TOP SCH ×3 (06:16→22:04)
[2018-04-29] MEDS: LEVOTHYROXINE SODIUM 25 MCG TAB PO SCH (06:17)
[2018-04-29] MEDS: diphenhdrAMINE HCL 25 MG CAP PO PRN ×2 (06:17→13:26)
[2018-04-29 08:34] VITALS: BP 125/86
[2018-04-29] MEDS ORDERED: SODIUM CHL 0.9% 1000 ML BAG XX ONE (09:00)
[2018-04-29] MEDS: SODIUM CHLORIDE 0.9% 1,000 ML IV SCH (09:04)
[2018-04-29] MEDS: NIFEdipine ER 30 MG TAB PO SCH (10:00)
[2018-04-29] MEDS: FAMOTIDINE 20 MG TAB PO SCH (10:54)
[2018-04-29] MEDS: ASPirin-EC 81 mg tab PO SCH (10:54)
[2018-04-29] MEDS: B-COMPLEX W/ C & FOLIC ACID(NEPHROVITE TAB) PO SCH (10:54)
[2018-04-29] MEDS: FERROUS SULFATE 325 MG TAB PO SCH (10:55)
[2018-04-29] MEDS: MULTIPLE VITAMIN TAB PO SCH (10:55)
[2018-04-29] MEDS: FUROSEMIDE 40 MG TAB PO SCH (10:55)
[2018-04-29] MEDS: CARVEDILOL 3.125 MG TAB PO SCH ×2 (10:56→22:04)
[2018-04-29] MEDS: THIAMINE HCL 100 MG TAB PO SCH (10:56)
[2018-04-29 13:00] VITALS: BP 132/94
[2018-04-29] MEDS ORDERED: VANCOMYCIN 500 MG in D5W 5% 100 ML IV ONE (16:00)
[2018-04-29 16:49] VITALS: BP 117/72
[2018-04-29] MEDS: HYDROcodone-ACET 5/325MG TAB PO PRN (17:53)
[2018-04-29 22:00] VITALS: BP 119/81
[2018-04-29] MEDS: GABAPENTIN 300 MG CAP PO SCH (22:04)
[2018-04-30] MEDS: SODIUM CHLORIDE 0.9% 1,000 ML IV SCH ×2 (01:44→12:31)
[2018-04-30] MEDS: diphenhdrAMINE HCL 25 MG CAP PO PRN ×3 (02:47→17:15)
[2018-04-30 05:00] VITALS: BP 122/78
[2018-04-30] MEDS: HYDROcodone-ACET 10/325MG TAB PO PRN ×2 (06:07→16:28)
[2018-04-30] MEDS: LEVOTHYROXINE SODIUM 25 MCG TAB PO SCH (06:07)
[2018-04-30] MEDS: HYDROCORTONE 1% TOPICAL CREAM 30 GM TUBE TOP SCH ×3 (06:07→22:22)
[2018-04-30 08:54] VITALS: BP 122/84
[2018-04-30] MEDS: ASPirin-EC 81 mg tab PO SCH (10:28)
[2018-04-30] MEDS: LEVOFLOXACIN 500MG 100 ML IV SCH (10:28)
[2018-04-30] MEDS: B-COMPLEX W/ C & FOLIC ACID(NEPHROVITE TAB) PO SCH (10:28)
[2018-04-30] MEDS: FERROUS SULFATE 325 MG TAB PO SCH (10:28)
[2018-04-30] MEDS: CARVEDILOL 3.125 MG TAB PO SCH ×2 (10:28→22:21)
[2018-04-30] MEDS: THIAMINE HCL 100 MG TAB PO SCH (10:29)
[2018-04-30] MEDS: FAMOTIDINE 20 MG TAB PO SCH (10:29)
[2018-04-30] MEDS: MULTIPLE VITAMIN TAB PO SCH (10:29)
[2018-04-30] MEDS: FUROSEMIDE 40 MG TAB PO SCH (10:29)
[2018-04-30] MEDS: NIFEdipine ER 30 MG TAB PO SCH (10:30)
[2018-04-30] MEDS: DOCUSATE SOD 100 MG CAP PO PRN (16:16)
[2018-04-30 16:53] VITALS: BP 126/81
[2018-04-30 22:00] VITALS: BP 138/84
[2018-04-30] MEDS: GABAPENTIN 300 MG CAP PO SCH (22:21)
[2018-05-01] MEDS: HYDROcodone-ACET 10/325MG TAB PO PRN ×2 (01:34→21:58)
[2018-05-01] MEDS: diphenhdrAMINE HCL 25 MG CAP PO PRN ×3 (01:34→17:59)
[2018-05-01 04:44] VITALS: BP 111/74
[2018-05-01 05:14] LABS: Basophils # (auto) 0 uL; Basophils % (auto) 0.5 % (0.0-2.0); Eosinophils # (auto) 0.1 uL; Eosinophils % (auto) 1.7 % (0.0-7.0); Hematocrit 31.3 % (41.0-53.0); Hemoglobin 10.3 g/dL (13.5-17.5); Lymphocytes % (auto) 23.4 % (10.0-50.0); Mean Corpuscular Hemoglobin 30.8 pg (28.0-32.0); Mean Corpuscular Volume 93.5 fL (80.0-100.0); Monocytes # (auto) 0.6 uL; Monocytes % (auto) 13.7 % (0.0-12.0); Neutrophils # (auto) 2.5 uL; Neutrophils % (auto) 60.7 % (37.0-80.0); Nucleated Red Blood Cells % 0.3 %; Platelet Count (auto) 95 10^3/uL (140-450); Red Blood Cells 3.35 10^6/uL (4.5-5.90); White Blood Cell 4.1 10^3/uL (4.4-10.8)
[2018-05-01 05:39] LABS: Albumin 2.9 g/dL (3.4-5.0); BUN/Creatinine Ratio 7.8; Bilirubin, Total 1.3 mg/dL (0.2-1.0); Calcium 8.3 mg/dL (8.5-10.1); Potassium 5.1 mmol/L (3.5-5.1); Total Protein 6.5 g/dL (6.4-8.2)
[2018-05-01] MEDS: HYDROCORTONE 1% TOPICAL CREAM 30 GM TUBE TOP SCH ×3 (06:23→21:58)
[2018-05-01] MEDS: LEVOTHYROXINE SODIUM 25 MCG TAB PO SCH (06:23)
[2018-05-01 08:00] VITALS: BP 114/73
[2018-05-01 08:34] VITALS: BP 114/73
[2018-05-01] MEDS: CARVEDILOL 3.125 MG TAB PO SCH ×2 (09:07→21:57)
[2018-05-01] MEDS: FUROSEMIDE 40 MG TAB PO SCH (09:07)
[2018-05-01] MEDS: NIFEdipine ER 30 MG TAB PO SCH (09:08)
[2018-05-01] MEDS: FAMOTIDINE 20 MG TAB PO SCH (09:14)
[2018-05-01] MEDS: MULTIPLE VITAMIN TAB PO SCH (09:15)
[2018-05-01] MEDS: FERROUS SULFATE 325 MG TAB PO SCH (09:15)
[2018-05-01] MEDS: THIAMINE HCL 100 MG TAB PO SCH (09:15)
[2018-05-01] MEDS: B-COMPLEX W/ C & FOLIC ACID(NEPHROVITE TAB) PO SCH (09:15)
[2018-05-01] MEDS: ASPirin-EC 81 mg tab PO SCH (09:15)
[2018-05-01] MEDS: DOCUSATE SOD 100 MG CAP PO PRN (09:34)
[2018-05-01] MEDS: SODIUM CHLORIDE 0.9% 1,000 ML IV SCH (11:00)
[2018-05-01 11:59] VITALS: BP 122/88
[2018-05-01] MEDS: HYDROcodone-ACET 5/325MG TAB PO PRN (15:46)
[2018-05-01 16:52] VITALS: BP 140/84
[2018-05-01] MEDS ORDERED: VANCOMYCIN 500 MG in D5W 5% 100 ML IV ONE (18:00)
[2018-05-01] MEDS: GABAPENTIN 300 MG CAP PO SCH (21:57)
[2018-05-01 22:00] VITALS: BP 118/78
[2018-05-02] MEDS: DOCUSATE SOD 100 MG CAP PO PRN (03:08)
[2018-05-02] MEDS: diphenhdrAMINE HCL 25 MG CAP PO PRN ×4 (03:08→22:26)
[2018-05-02] MEDS: SODIUM CHLORIDE 0.9% 1,000 ML IV SCH ×2 (03:44→20:24)
[2018-05-02 05:49] VITALS: BP 126/86
[2018-05-02 06:06] LABS: Hematocrit 28.1 % (41.0-53.0); Hemoglobin 9.6 g/dL (13.5-17.5); Mean Corpuscular Hemoglobin 31.6 pg (28.0-32.0); Mean Corpuscular Hgb Conc. 34.1 g/dL (32.0-36.0); Mean Corpuscular Volume 92.8 fL (80.0-100.0); Platelet Count (auto) 76 10^3/uL (140-450); Red Blood Cells 3.03 10^6/uL (4.5-5.90); White Blood Cell 3.7 10^3/uL (4.4-10.8)
[2018-05-02 06:12] LABS: BUN/Creatinine Ratio 6.7; Calcium 8.3 mg/dL (8.5-10.1); Potassium 5.1 mmol/L (3.5-5.1); Red Cell Distribution Width 23.3 % (11.8-14.3)
[2018-05-02 06:13] LABS: Band Neutrophils % (manual) 0; Basophils % (manual) 0 (0.0-2.0); Blast Cells 0; Metamyelocytes % 0; Myelocytes % 0; Promyelocytes % 0; Reactive Lymphocytes 0
[2018-05-02] MEDS: LEVOTHYROXINE SODIUM 25 MCG TAB PO SCH (06:13)
[2018-05-02] MEDS: HYDROCORTONE 1% TOPICAL CREAM 30 GM TUBE TOP SCH ×3 (06:13→22:25)
[2018-05-02] MEDS: HYDROcodone-ACET 10/325MG TAB PO PRN ×3 (06:14→19:52)
[2018-05-02 08:00] VITALS: BP 123/89
[2018-05-02 08:32] LABS: Eosinophils % (manual) 3 (0-7); Lymphocytes % (manual) 29 (10.0-50.0); Monocytes % (manual) 16 (0-12)
[2018-05-02 09:00] VITALS: BP 123/89
[2018-05-02] MEDS: FERROUS SULFATE 325 MG TAB PO SCH (09:47)
[2018-05-02] MEDS: FAMOTIDINE 20 MG TAB PO SCH (09:47)
[2018-05-02] MEDS: LEVOFLOXACIN 500MG 100 ML IV SCH (09:47)
[2018-05-02] MEDS: MULTIPLE VITAMIN TAB PO SCH (09:47)
[2018-05-02] MEDS: B-COMPLEX W/ C & FOLIC ACID(NEPHROVITE TAB) PO SCH (09:48)
[2018-05-02] MEDS: FUROSEMIDE 40 MG TAB PO SCH (09:48)
[2018-05-02] MEDS: ASPirin-EC 81 mg tab PO SCH (09:48)
[2018-05-02] MEDS: CARVEDILOL 3.125 MG TAB PO SCH ×2 (09:49→22:24)
[2018-05-02] MEDS: NIFEdipine ER 30 MG TAB PO SCH (09:50)
[2018-05-02] MEDS: THIAMINE HCL 100 MG TAB PO SCH (09:58)
[2018-05-02 13:00] VITALS: BP 120/80
[2018-05-02 17:09] VITALS: BP 132/87
[2018-05-02 22:00] VITALS: BP 116/72
[2018-05-02] MEDS: GABAPENTIN 300 MG CAP PO SCH (22:25)
[2018-05-03 05:41] VITALS: BP 132/88
[2018-05-03 06:10] LABS: BUN/Creatinine Ratio 7.2; Calcium 8.8 mg/dL (8.5-10.1); Potassium 5.1 mmol/L (3.5-5.1)
[2018-05-03 06:11] LABS: Hematocrit 28.8 % (41.0-53.0); Hemoglobin 9.6 g/dL (13.5-17.5); Mean Corpuscular Hemoglobin 31.1 pg (28.0-32.0); Mean Corpuscular Hgb Conc. 33.3 g/dL (32.0-36.0); Mean Corpuscular Volume 93.4 fL (80.0-100.0); Platelet Count (auto) 75 10^3/uL (140-450); Red Blood Cells 3.08 10^6/uL (4.5-5.90); White Blood Cell 3.8 10^3/uL (4.4-10.8)
[2018-05-03] MEDS: HYDROcodone-ACET 10/325MG TAB PO PRN ×3 (06:13→20:59)
[2018-05-03] MEDS: LEVOTHYROXINE SODIUM 25 MCG TAB PO SCH (06:14)
[2018-05-03] MEDS: HYDROCORTONE 1% TOPICAL CREAM 30 GM TUBE TOP SCH ×3 (06:14→23:47)
[2018-05-03 06:16] LABS: Red Cell Distribution Width 23.2 % (11.8-14.3)
[2018-05-03 06:17] LABS: Band Neutrophils % (manual) 0; Basophils % (manual) 0 (0.0-2.0); Blast Cells 0; Metamyelocytes % 0; Myelocytes % 0; Promyelocytes % 0; Reactive Lymphocytes 0
[2018-05-03 08:00] VITALS: BP 141/91
[2018-05-03 08:02] LABS: Eosinophils % (manual) 2 (0-7); Lymphocytes % (manual) 33 (10.0-50.0); Monocytes % (manual) 7 (0-12)
[2018-05-03] MEDS: B-COMPLEX W/ C & FOLIC ACID(NEPHROVITE TAB) PO SCH (09:08)
[2018-05-03] MEDS: FAMOTIDINE 20 MG TAB PO SCH (09:08)
[2018-05-03] MEDS: NIFEdipine ER 30 MG TAB PO SCH (09:08)
[2018-05-03] MEDS: ASPirin-EC 81 mg tab PO SCH (09:08)
[2018-05-03] MEDS: MULTIPLE VITAMIN TAB PO SCH (09:08)
[2018-05-03] MEDS: THIAMINE HCL 100 MG TAB PO SCH (09:08)
[2018-05-03] MEDS: FERROUS SULFATE 325 MG TAB PO SCH (09:09)
[2018-05-03] MEDS: CARVEDILOL 3.125 MG TAB PO SCH ×2 (09:09→23:46)
[2018-05-03] MEDS: FUROSEMIDE 40 MG TAB PO SCH (09:09)
[2018-05-03] MEDS: diphenhdrAMINE HCL 25 MG CAP PO PRN ×2 (10:11→23:47)
[2018-05-03 12:00] VITALS: BP 125/85
[2018-05-03] MEDS: SODIUM CHLORIDE 0.9% 1,000 ML IV SCH (13:04)
[2018-05-03 15:00] VITALS: BP 118/77
[2018-05-03 21:28] VITALS: BP 108/66
[2018-05-03] MEDS: GABAPENTIN 300 MG CAP PO SCH (23:43)
[2018-05-04] MEDS: SODIUM CHLORIDE 0.9% 1,000 ML IV SCH ×2 (01:25→20:10)
[2018-05-04 05:40] VITALS: BP 136/82
[2018-05-04] MEDS: LEVOTHYROXINE SODIUM 25 MCG TAB PO SCH (07:16)
[2018-05-04] MEDS: HYDROCORTONE 1% TOPICAL CREAM 30 GM TUBE TOP SCH ×3 (07:16→22:18)
[2018-05-04 07:32] LABS: Hematocrit 28.7 % (41.0-53.0); Hemoglobin 9.4 g/dL (13.5-17.5); Mean Corpuscular Hemoglobin 30.4 pg (28.0-32.0); Mean Corpuscular Hgb Conc. 32.8 g/dL (32.0-36.0); Mean Corpuscular Volume 92.5 fL (80.0-100.0); Platelet Count (auto) 71 10^3/uL (140-450); White Blood Cell 4.1 10^3/uL (4.4-10.8)
[2018-05-04 07:34] LABS: Band Neutrophils % (manual) 0; Basophils % (manual) 0 (0.0-2.0); Blast Cells 0; Metamyelocytes % 0; Myelocytes % 0; Promyelocytes % 0; Reactive Lymphocytes 0
[2018-05-04 07:50] LABS: BUN/Creatinine Ratio 7.3; Calcium 8.3 mg/dL (8.5-10.1); Potassium 4.7 mmol/L (3.5-5.1)
[2018-05-04 07:59] LABS: Eosinophils % (manual) 2 (0-7); Lymphocytes % (manual) 28 (10.0-50.0); Monocytes % (manual) 10 (0-12)
[2018-05-04] MEDS: HYDROcodone-ACET 10/325MG TAB PO PRN ×2 (08:50→20:20)
[2018-05-04] MEDS: LEVOFLOXACIN 500MG 100 ML IV SCH (08:50)
[2018-05-04] MEDS: FAMOTIDINE 20 MG TAB PO SCH (08:51)
[2018-05-04] MEDS: CARVEDILOL 3.125 MG TAB PO SCH ×2 (08:51→20:20)
[2018-05-04] MEDS: FERROUS SULFATE 325 MG TAB PO SCH (08:51)
[2018-05-04] MEDS: THIAMINE HCL 100 MG TAB PO SCH (08:51)
[2018-05-04] MEDS: MULTIPLE VITAMIN TAB PO SCH (08:51)
[2018-05-04] MEDS: B-COMPLEX W/ C & FOLIC ACID(NEPHROVITE TAB) PO SCH (08:51)
[2018-05-04] MEDS: ASPirin-EC 81 mg tab PO SCH (08:52)
[2018-05-04] MEDS: FUROSEMIDE 40 MG TAB PO SCH (08:52)
[2018-05-04] MEDS: NIFEdipine ER 30 MG TAB PO SCH (08:52)
[2018-05-04 09:00] VITALS: BP 122/96
[2018-05-04] MEDS ORDERED: diphenhdrAMINE HCL 50 MG/1 ML VL IV ONE (14:15)
[2018-05-04] MEDS ORDERED: EPOETIN ALFA 3,000 UNIT/1 ML VIAL IV ONE ×2 (14:15→14:45)
[2018-05-04] MEDS ORDERED: EPOETIN ALFA 2,000 UNIT/1 ML VIAL IV ONE (14:45)
[2018-05-04 17:00] VITALS: BP_SYST 129; BP_SYST 132; BP_DIAS 78; BP_DIAS 79
[2018-05-04] MEDS ORDERED: VANCOMYCIN 500 MG in D5W 5% 100 ML IV ONE (20:00)
[2018-05-04] MEDS: GABAPENTIN 300 MG CAP PO SCH (20:15)
[2018-05-04] MEDS: diphenhdrAMINE HCL 25 MG CAP PO PRN (20:20)
[2018-05-04] MEDS: TEMAZEPAM 15 MG CAP PO PRN (20:20)
[2018-05-04] MEDS: ACETAMINOPHEN 325 MG TAB PO PRN (20:21)
[2018-05-04] MEDS: ONDANSETRON HCL 4 MG/2 ML VIAL IV PRN (20:21)
[2018-05-04] MEDS: DOCUSATE SOD 100 MG CAP PO PRN (20:21)
[2018-05-04 23:12] VITALS: BP 131/84
[2018-05-05] MEDS: ACETAMINOPHEN 325 MG TAB PO PRN ×2 (00:23→06:58)
[2018-05-05] MEDS: guaiFENesin 200 MG/10 ML UD PO PRN ×2 (00:24→06:51)
[2018-05-05] MEDS: ONDANSETRON HCL 4 MG/2 ML VIAL IV PRN ×2 (00:25→06:51)
[2018-05-05] MEDS: diphenhdrAMINE HCL 25 MG CAP PO PRN (02:57)
[2018-05-05] MEDS: FAMOTIDINE 20 MG TAB PO SCH (02:57)
[2018-05-05] MEDS: HYDROcodone-ACET 10/325MG TAB PO PRN ×2 (02:57→09:28)
[2018-05-05 05:30] VITALS: BP 117/75
[2018-05-05] MEDS: HYDROCORTONE 1% TOPICAL CREAM 30 GM TUBE TOP SCH ×2 (05:35→15:18)
[2018-05-05] MEDS: LEVOTHYROXINE SODIUM 25 MCG TAB PO SCH (05:35)
[2018-05-05] MEDS: DOCUSATE SOD 100 MG CAP PO PRN (06:58)
[2018-05-05] MEDS ORDERED: SIMETHICONE 80 MG CHEWABLE TABLET PO PRN (07:00)
[2018-05-05 09:00] VITALS: BP 111/70
[2018-05-05] MEDS: THIAMINE HCL 100 MG TAB PO SCH (09:26)
[2018-05-05] MEDS: B-COMPLEX W/ C & FOLIC ACID(NEPHROVITE TAB) PO SCH (09:26)
[2018-05-05] MEDS: FERROUS SULFATE 325 MG TAB PO SCH (09:27)
[2018-05-05] MEDS: NIFEdipine ER 30 MG TAB PO SCH (09:27)
[2018-05-05] MEDS: ASPirin-EC 81 mg tab PO SCH (09:29)
[2018-05-05] MEDS: FUROSEMIDE 40 MG TAB PO SCH (09:29)
[2018-05-05] MEDS: MULTIPLE VITAMIN TAB PO SCH (09:29)
[2018-05-05] MEDS: CARVEDILOL 3.125 MG TAB PO SCH (09:30)
[2018-05-05 13:00] VITALS: BP 118/81
[2018-05-05] MEDS: SODIUM CHLORIDE 0.9% 1,000 ML IV SCH (15:04)
[2018-05-05 17:00] VITALS: BP 125/87
== END 2018-05-05 18:50 | disposition home or self-care (01) | DRG 871 ==
LOC: ER 13:06 → TELE 13:07 → TELE-CENTR 20:24
PROVIDERS: ADMIT Internal Medicine; ATTEND Internal Medicine Pulmonary Disease
PROC: 5A1D70Z Performance of Urinary Filtration, Intermittent, Less than 6 Hours Per Day (ICD-10-PCS; principal; 2018-04-29)
PROC: 5A1D70Z Performance of Urinary Filtration, Intermittent, Less than 6 Hours Per Day (ICD-10-PCS; 2018-05-01)
PROC: 5A1D70Z Performance of Urinary Filtration, Intermittent, Less than 6 Hours Per Day (ICD-10-PCS; 2018-05-04)
DX: A41.9 Sepsis, unspecified organism (principal); G93.41 Metabolic encephalopathy; N18.6 End stage renal disease; I50.43 Acute on chronic combined systolic (congestive) and diastolic (congestive) heart failure; J18.1 Lobar pneumonia, unspecified organism; I13.2 Hypertensive heart and chronic kidney disease with heart failure and with stage 5 chronic kidney disease, or end stage renal disease; E87.1 Hypo-osmolality and hyponatremia; E44.0 Moderate protein-calorie malnutrition; D63.8 Anemia in other chronic diseases classified elsewhere; F03.90 Unspecified dementia, unspecified severity, without behavioral disturbance, psychotic disturbance, mood disturbance, and anxiety; F20.9 Schizophrenia, unspecified; I25.10 Atherosclerotic heart disease of native coronary artery without angina pectoris; Z82.49 Family history of ischemic heart disease and other diseases of the circulatory system; I25.2 Old myocardial infarction; Z99.2 Dependence on renal dialysis; Z86.73 Personal history of transient ischemic attack (TIA), and cerebral infarction without residual deficits; Z88.5 Allergy status to narcotic agent; Z68.25 Body mass index [BMI] 25.0-25.9, adult
CPT/HCPCS: 36415; 70450; 71045; 71046; 74176; 80048; 80053; 80202; 83605; 84484; 85007; 85025; 85027; 85610; 85730; 87040; 90935; 93005; 93886; 96374; 96375; 97110; 97116; 97163; 97530; J1956; J2405; J7060; Q4081

== ENCOUNTER 2018-05-19 01:29 | Emergency (ER) | payer OTHER ==
[~2018-05-19] VITALS: Ht 182.9 cm; Wt 64.9 kg
[2018-05-19 06:11] LABS: BUN/Creatinine Ratio 6.6
[2018-05-19 06:12] LABS: Albumin 2.9 g/dL (3.4-5.0); Bilirubin, Total 2.3 mg/dL (0.2-1.0); Calcium 7.4 mg/dL (8.5-10.1); Total Protein 6.7 g/dL (6.4-8.2)
[2018-05-19 06:18] LABS: INR 2.04 (0.9-1.15); Partial Thromboplastin Time 33.9 sec (23.78-33.04)
[2018-05-19 06:20] LABS: White Blood Cell 9.9 10^3/uL (4.4-10.8)
[2018-05-19 06:21] LABS: Basophils # (auto) 0 uL; Basophils % (auto) 0.5 % (0.0-2.0); Eosinophils # (auto) 0 uL; Eosinophils % (auto) 0.1 % (0.0-7.0); Hemoglobin 10.6 g/dL (13.5-17.5); Lymphocytes # (auto) 0.7 uL; Monocytes # (auto) 0.9 uL; Monocytes % (auto) 9.4 % (0.0-12.0); Neutrophils # (auto) 8.2 uL; Nucleated Red Blood Cells % 1.1 %; Red Blood Cells 3.54 10^6/uL (4.5-5.90)
[2018-05-19 06:22] LABS: Hematocrit 34.1 % (41.0-53.0); Mean Corpuscular Hgb Conc. 31.2 g/dL (32.0-36.0); Mean Corpuscular Volume 96.3 fL (80.0-100.0); Platelet Count (auto) 205 10^3/uL (140-450); Red Cell Distribution Width 21.1 % (11.8-14.3)
[2018-05-19] MEDS ORDERED: SODIUM CHLORIDE 0.9% 1,000 ML IV ONE (06:34)
[2018-05-19] MEDS ORDERED: cefTRIAXone 1GM/10ml IVPUSH 10 ML IV ONE (10:15)
[2018-05-19] MEDS: SODIUM BICARBONATE 8.4 % INJ 50ML VIAL IV ONE ×2 (10:30→14:20)
[2018-05-19] MEDS ORDERED: LORazepam 2MG/ML-1ML VIAL IV ONE (10:30)
[2018-05-19] MEDS: CALCIUM CHL 100MG/ML 1,000 MG in D5W 5% 100 ML IV ONE ×2 (10:30→14:20)
[2018-05-19] MEDS ORDERED: SODIUM POLYSTYRENE SULF 15GM/60ML SUSP PR ONE (10:45)
[2018-05-19] MEDS ORDERED: PHYTONADIONE (VIT K)10 MG/ML 1ML VIAL SUBCUT ONE (11:15)
[2018-05-19 11:40] LABS: BUN/Creatinine Ratio 6.9; Calcium 7.8 mg/dL (8.5-10.1)
[2018-05-19 12:57] LABS: Potassium 6.2 mmol/L (3.5-5.1)
[2018-05-19] MEDS ORDERED: SODIUM CHL 0.9% 1000 ML BAG XX ONE (17:00)
[2018-05-19] MEDS ORDERED: EPOETIN ALFA 2,000 UNIT/1 ML VIAL IV ONE (17:00)
[2018-05-19] MEDS ORDERED: EPOETIN ALFA 3,000 UNIT/1 ML VIAL IV ONE (17:00)
[2018-05-19] MEDS ORDERED: DEXTROSE (50%) 50ML SYRG IV PRN (20:00)
[2018-05-19] MEDS ORDERED: ALBUTEROL SULF 2.5 MG/0.5ML(0.5%) NEB SOLN NEB PRN (20:00)
[2018-05-19] MEDS: ACCU-CHEK COMFORT CURVE STRIP VI SCH (20:53)
[2018-05-19 21:01] VITALS: BP 132/70
[2018-05-19 21:29] LABS: INR 1.77 (0.9-1.15); Prothrombin Time 18.3 sec (9.27-12.13)
[2018-05-19 22:37] VITALS: BP 129/90
[2018-05-19 22:52] VITALS: BP 118/84
[2018-05-19 23:26] VITALS: BP 111/85
[2018-05-20] MEDS: ACCU-CHEK COMFORT CURVE STRIP VI SCH (00:11)
[2018-05-20] MEDS ORDERED: LORazepam 2MG/ML-1ML VIAL IV ONE (00:15)
[2018-05-20 01:35] LABS: Basophils # (auto) 0 uL; Basophils % (auto) 0.7 % (0.0-2.0); Eosinophils # (auto) 0 uL; Eosinophils % (auto) 0.4 % (0.0-7.0); Hematocrit 29.6 % (41.0-53.0); Hemoglobin 9.7 g/dL (13.5-17.5); Lymphocytes # (auto) 0.6 uL; Lymphocytes % (auto) 7.9 % (10.0-50.0); Mean Corpuscular Hgb Conc. 32.6 g/dL (32.0-36.0); Mean Corpuscular Volume 91.9 fL (80.0-100.0); Monocytes # (auto) 0.7 uL; Monocytes % (auto) 9.7 % (0.0-12.0); Neutrophils # (auto) 5.8 uL; Neutrophils % (auto) 81.3 % (37.0-80.0); Nucleated Red Blood Cells % 0.6 %; Red Blood Cells 3.22 10^6/uL (4.5-5.90); White Blood Cell 7.1 10^3/uL (4.4-10.8)
[2018-05-20 01:36] LABS: Platelet Count (auto) 125 10^3/uL (140-450)
[2018-05-20 01:40] LABS: Red Cell Distribution Width 21.4 % (11.8-14.3)
[2018-05-20 01:51] LABS: Albumin 2.5 g/dL (3.4-5.0); Calcium 7.5 mg/dL (8.5-10.1); Potassium 4.8 mmol/L (3.5-5.1)
[2018-05-20 01:54] LABS: Bilirubin, Total 2.8 mg/dL (0.2-1.0)
[2018-05-20 01:58] VITALS: BP 123/88
[2018-05-20] MEDS ORDERED: cefTRIAXone 1GM/10ml IVPUSH 10 ML IV SCH (09:00)
[2018-05-20] MEDS ORDERED: AZITHROMYCIN 500MG/ 250ML 250 ML IV SCH (10:00)
== END 2018-05-20 02:52 | disposition short-term general hospital (02) ==
LOC: EDBD 01:29 → EDUNIT# 01:29 → ER 01:29
DX: A41.9 Sepsis, unspecified organism (principal); J18.9 Pneumonia, unspecified organism; R41.82 Altered mental status, unspecified; G93.41 Metabolic encephalopathy; E11.22 Type 2 diabetes mellitus with diabetic chronic kidney disease; I13.2 Hypertensive heart and chronic kidney disease with heart failure and with stage 5 chronic kidney disease, or end stage renal disease; I50.9 Heart failure, unspecified; N18.6 End stage renal disease; E87.5 Hyperkalemia; D64.89 Other specified anemias; I62.00 Nontraumatic subdural hemorrhage, unspecified; R74.8 Abnormal levels of other serum enzymes; E46 Unspecified protein-calorie malnutrition; E83.41 Hypermagnesemia; E03.9 Hypothyroidism, unspecified; I25.10 Atherosclerotic heart disease of native coronary artery without angina pectoris; E78.5 Hyperlipidemia, unspecified; E87.1 Hypo-osmolality and hyponatremia; E11.649 Type 2 diabetes mellitus with hypoglycemia without coma; Z88.5 Allergy status to narcotic agent; Z99.2 Dependence on renal dialysis; Z79.82 Long term (current) use of aspirin; Z79.899 Other long term (current) drug therapy; Z86.73 Personal history of transient ischemic attack (TIA), and cerebral infarction without residual deficits
CPT/HCPCS: 36415; 36430; 70450; 70551; 71045; 80048; 80053; 82140; 82150; 82550; 82962; 83036; 83605; 83690; 83735; 83880; 84443; 84484; 85025; 85379; 85610; 85730; 86850; 86900; 86901; 87040; 94761; 96361; 96365; 96372; 96375; 99291; J0885; J1642; J2060; J3430; J7030; P9017; Q4081; 90935; 93005; J7060

== ENCOUNTER 2018-07-08 14:02 | Emergency (ER) | payer OTHER ==
[~2018-07-08] VITALS: Ht 175.3 cm; Wt 72.6 kg
[2018-07-08 15:03] LABS: Basophils # (auto) 0 uL; Basophils % (auto) 0.5 % (0.0-2.0); Eosinophils # (auto) 0.4 uL; Eosinophils % (auto) 7.1 % (0.0-7.0); Hemoglobin 9.2 g/dL (13.5-17.5); Lymphocytes # (auto) 0.4 uL; Mean Corpuscular Hemoglobin 31.3 pg (28.0-32.0); Mean Corpuscular Hgb Conc. 31.8 g/dL (32.0-36.0); Mean Corpuscular Volume 98.4 fL (80.0-100.0); Monocytes # (auto) 0.6 uL; Monocytes % (auto) 12.1 % (0.0-12.0); Neutrophils # (auto) 3.8 uL; Neutrophils % (auto) 73.3 % (37.0-80.0); Nucleated Red Blood Cells % 0.1 %; Platelet Count (auto) 222 10^3/uL (140-450); Red Blood Cells 2.94 10^6/uL (4.5-5.90); White Blood Cell 5.1 10^3/uL (4.4-10.8)
[2018-07-08 15:06] LABS: Red Cell Distribution Width 22.1 % (11.8-14.3)
[2018-07-08 15:24] LABS: Alanine Aminotransferase 16 U/L (16-61); Albumin 3.1 g/dL (3.4-5.0); Alkaline Phosphatase 107 U/L (45-117); Anion Gap 10 (5-15); Aspartate Aminotransferase 27 U/L (15-37); BUN/Creatinine Ratio 3.6; Bilirubin, Total 1.7 mg/dL (0.2-1.0); Blood Alcohol < 3.0 mg/dL (0-5); Blood Urea Nitrogen 17 mg/dL (7-18); Calcium 8.9 mg/dL (8.5-10.1); Carbon Dioxide 30 mmol/L (21-32); Chloride 93 mmol/L (98-107); GFR African American 16 mL/min; GFR Non-African American 13 mL/min; Glucose 71 mg/dL (74-106); Sodium 133 mmol/L (136-145); Total Protein 7.9 g/dL (6.4-8.2)
[2018-07-08 16:00] VITALS: BP 142/79
== END 2018-07-08 16:46 | disposition home or self-care (01) ==
LOC: EDBD 14:02 → ER 14:02
DX: F41.9 Anxiety disorder, unspecified (principal); I13.2 Hypertensive heart and chronic kidney disease with heart failure and with stage 5 chronic kidney disease, or end stage renal disease; E11.22 Type 2 diabetes mellitus with diabetic chronic kidney disease; N18.6 End stage renal disease; I50.9 Heart failure, unspecified; I25.2 Old myocardial infarction; E07.89 Other specified disorders of thyroid; Z88.6 Allergy status to analgesic agent; Z79.899 Other long term (current) drug therapy
CPT/HCPCS: 36415; 80053; 80320; 82140; 85025; 94761

== ENCOUNTER 2018-09-15 17:30 | Inpatient (IN) | payer OTHER ==
[~2018-09-15] VITALS: Ht 177.8 cm; Wt 76.1 kg
[2018-09-15] MEDS ORDERED: ASPirin 81 mg TAB PO ONE (18:00)
[2018-09-15] MEDS ORDERED: ONDANSETRON HCL 4 MG/2 ML VIAL IV ONE ×2 (18:30→20:30)
[2018-09-15] MEDS ORDERED: MORPHINE SULFATE 4 MG/ML SYR/VIAL IV ONE ×2 (18:30→20:30)
[2018-09-15 18:43] LABS: Basophils # (auto) 0 uL; Eosinophils # (auto) 0.1 uL; Hemoglobin 8.4 g/dL (13.5-17.5); Lymphocytes # (auto) 0.4 uL; Monocytes # (auto) 0.5 uL
[2018-09-15 18:45] LABS: Basophils % (auto) 0.5 % (0.0-2.0); Eosinophils % (auto) 0.9 % (0.0-7.0); Lymphocytes % (auto) 5.6 % (10.0-50.0); Mean Corpuscular Hemoglobin 30.4 pg (28.0-32.0); Mean Corpuscular Hgb Conc. 31.1 g/dL (32.0-36.0); Mean Corpuscular Volume 97.5 fL (80.0-100.0); Monocytes % (auto) 6.3 % (0.0-12.0); Neutrophils # (auto) 6.5 uL; Neutrophils % (auto) 86.7 % (37.0-80.0); Platelet Count (auto) 178 10^3/uL (140-450); Red Blood Cells 2.76 10^6/uL (4.5-5.90); Red Cell Distribution Width 19.2 % (11.8-14.3); White Blood Cell 7.5 10^3/uL (4.4-10.8)
[2018-09-15 19:00] LABS: Albumin 2.6 g/dL (3.4-5.0); BUN/Creatinine Ratio 6.4; Calcium 7.8 mg/dL (8.5-10.1); Magnesium 1.9 mg/dL (1.6-2.6); Potassium 3.5 mmol/L (3.5-5.1)
[2018-09-15 19:05] LABS: Bilirubin, Total 1.4 mg/dL (0.2-1.0); Total Protein 6.6 g/dL (6.4-8.2)
[2018-09-15] MEDS ORDERED: diphenhdrAMINE HCL 50 MG/1 ML VL IV ONE (20:30)
[2018-09-15] MEDS ORDERED: ACETAMINOPHEN 325 MG TAB PO PRN (21:15)
[2018-09-15] MEDS ORDERED: DEXTROSE (50%) 50ML SYRG IV PRN (21:15)
[2018-09-15] MEDS ORDERED: NITROGLYCERIN 0.4 MG SL TAB SL PRN (21:15)
[2018-09-15] MEDS ORDERED: MORPHINE SULFATE 4 MG/ML SYR/VIAL IV PRN (21:15)
[2018-09-15 22:00] VITALS: BP 112/72
[2018-09-15] MEDS ORDERED: APIXABAN 2.5 MG TAB PO SCH (22:00)
[2018-09-16] VITALS (7 sets, daily range): BP systolic 91–137; BP diastolic 55–82
[2018-09-16] MEDS: CARVEDILOL 3.125 MG TAB PO SCH ×3 (00:30→23:10)
[2018-09-16] MEDS: ATORVASTATIN 20 MG TAB PO SCH ×2 (00:32→23:10)
[2018-09-16] MEDS: HYDROcodone-ACET 5/325MG TAB PO PRN ×2 (00:41→05:15)
[2018-09-16] MEDS: ACCU-CHEK COMFORT CURVE STRIP VI SCH ×5 (05:15→23:10)
[2018-09-16] MEDS: InsuLIN REG 1unit/0.01ml Soln (100units/ml) SC SCH ×5 (05:15→23:10)
[2018-09-16 06:27] LABS: Basophils # (auto) 0 uL; Eosinophils # (auto) 0.2 uL; Lymphocytes # (auto) 0.8 uL; Mean Corpuscular Volume 96.7 fL (80.0-100.0); Neutrophils # (auto) 2.7 uL; Nucleated Red Blood Cells % 0.1 %; White Blood Cell 4.3 10^3/uL (4.4-10.8)
[2018-09-16 06:29] LABS: Basophils % (auto) 0.5 % (0.0-2.0); Eosinophils % (auto) 4.5 % (0.0-7.0); Hematocrit 25.8 % (41.0-53.0); Hemoglobin 8.1 g/dL (13.5-17.5); Lymphocytes % (auto) 19.3 % (10.0-50.0); Mean Corpuscular Hemoglobin 30.3 pg (28.0-32.0); Mean Corpuscular Hgb Conc. 31.4 g/dL (32.0-36.0); Monocytes # (auto) 0.5 uL; Monocytes % (auto) 12.6 % (0.0-12.0); Neutrophils % (auto) 63.1 % (37.0-80.0); Red Blood Cells 2.67 10^6/uL (4.5-5.90); Red Cell Distribution Width 19.2 % (11.8-14.3)
[2018-09-16 06:31] LABS: Platelet Count (auto) 160 10^3/uL (140-450)
[2018-09-16 06:52] LABS: Albumin 2.5 g/dL (3.4-5.0); BUN/Creatinine Ratio 6.3; Calcium 8.1 mg/dL (8.5-10.1)
[2018-09-16 06:55] LABS: Bilirubin, Total 1.3 mg/dL (0.2-1.0); Total Protein 6.2 g/dL (6.4-8.2)
[2018-09-16] MEDS ORDERED: NIFE90TA30 PO (08:27)
[2018-09-16] MEDS ORDERED: HYDR-4798 PO (08:27)
[2018-09-16] MEDS ORDERED: SUCR1SUS10 PO (08:27)
[2018-09-16] MEDS ORDERED: INSDRIP IV (08:27)
[2018-09-16] MEDS ORDERED: CARV6.2551 PO (08:27)
[2018-09-16] MEDS ORDERED: TEMA15CA PO (08:27)
[2018-09-16] MEDS ORDERED: HYDR50TA32 PO (08:27)
[2018-09-16] MEDS ORDERED: AMLO5TAB13 PO (08:27)
[2018-09-16] MEDS ORDERED: LISI10TA6 PO (08:27)
[2018-09-16] MEDS ORDERED: BACL20TA PO (08:27)
[2018-09-16] MEDS ORDERED: CITA10TA70 PO (08:27)
[2018-09-16] MEDS ORDERED: APIX2.5T OR (08:27)
[2018-09-16] MEDS ORDERED: ATOR40TA52 PO (08:27)
[2018-09-16] MEDS ORDERED: ALBUAER3 IN (08:27)
[2018-09-16] MEDS ORDERED: SEVE800T8 PO (08:27)
[2018-09-16] MEDS ORDERED: HYDR-531 PO (08:27)
[2018-09-16] MEDS ORDERED: FAM20T PO (08:27)
[2018-09-16] MEDS: PANTOPRAZOLE 40 MG TAB PO SCH (08:44)
[2018-09-16] MEDS: FUROSEMIDE 40 MG TAB PO SCH (08:45)
[2018-09-16] MEDS: NIFEdipine ER 30 MG TAB PO SCH (08:45)
[2018-09-16] MEDS: B-COMPLEX W/ C & FOLIC ACID(NEPHROVITE TAB) PO SCH (08:45)
[2018-09-16] MEDS: ASPirin 81 mg TAB PO SCH (08:46)
[2018-09-16] MEDS: SEVELAMER 800 MG TAB PO SCH ×3 (08:46→18:29)
[2018-09-16] MEDS ORDERED: LEV100T PO (11:46)
[2018-09-16] MEDS: diphenhdrAMINE HCL 25 MG CAP PO PRN ×2 (12:48→23:10)
[2018-09-16] MEDS: HYDROcodone-ACET 10/325MG TAB PO PRN ×2 (12:48→19:36)
[2018-09-16] MEDS: DOCUSATE SOD 100 MG CAP PO PRN (20:34)
[2018-09-16] MEDS: ONDANSETRON HCL 4 MG/2 ML VIAL IV PRN (20:34)
[2018-09-16] MEDS: TEMAZEPAM 15 MG CAP PO PRN (23:10)
[2018-09-17] MEDS: HYDROcodone-ACET 10/325MG TAB PO PRN ×3 (04:41→21:20)
[2018-09-17 05:15] VITALS: BP 95/57
[2018-09-17] MEDS: InsuLIN REG 1unit/0.01ml Soln (100units/ml) SC SCH ×3 (06:00→18:00)
[2018-09-17] MEDS: ACCU-CHEK COMFORT CURVE STRIP VI SCH ×3 (06:06→18:17)
[2018-09-17] MEDS: LEVOTHYROXINE SODIUM 25 MCG TAB PO SCH (06:07)
[2018-09-17 06:44] LABS: Basophils # (auto) 0 uL; Eosinophils # (auto) 0.2 uL; Lymphocytes # (auto) 0.7 uL; Neutrophils # (auto) 2.6 uL; Red Cell Distribution Width 19.1 % (11.8-14.3); White Blood Cell 4.1 10^3/uL (4.4-10.8)
[2018-09-17 06:47] LABS: Basophils % (auto) 0.5 % (0.0-2.0); Eosinophils % (auto) 4.9 % (0.0-7.0); Hematocrit 24.6 % (41.0-53.0); Lymphocytes % (auto) 17.9 % (10.0-50.0); Mean Corpuscular Hemoglobin 30.7 pg (28.0-32.0); Mean Corpuscular Hgb Conc. 32.3 g/dL (32.0-36.0); Mean Corpuscular Volume 95.2 fL (80.0-100.0); Monocytes # (auto) 0.6 uL; Monocytes % (auto) 13.4 % (0.0-12.0); Neutrophils % (auto) 63.3 % (37.0-80.0); Nucleated Red Blood Cells % 0.1 %; Platelet Count (auto) 166 10^3/uL (140-450); Red Blood Cells 2.59 10^6/uL (4.5-5.90)
[2018-09-17 07:11] LABS: BUN/Creatinine Ratio 7.4; Potassium 4.3 mmol/L (3.5-5.1)
[2018-09-17] MEDS ORDERED: diphenhdrAMINE HCL 25 MG CAP PO ONE (08:00)
[2018-09-17] MEDS ORDERED: EPOETIN ALFA 10,000 UNIT/1 ML VIAL IV ONE (08:00)
[2018-09-17] MEDS: SEVELAMER 800 MG TAB PO SCH ×3 (08:25→18:17)
[2018-09-17] MEDS: diphenhdrAMINE HCL 25 MG CAP PO PRN (08:26)
[2018-09-17 09:00] VITALS: BP 110/55
[2018-09-17] MEDS: PANTOPRAZOLE 40 MG TAB PO SCH (11:43)
[2018-09-17] MEDS: B-COMPLEX W/ C & FOLIC ACID(NEPHROVITE TAB) PO SCH (11:43)
[2018-09-17] MEDS: CARVEDILOL 3.125 MG TAB PO SCH ×2 (11:44→21:16)
[2018-09-17] MEDS: FUROSEMIDE 40 MG TAB PO SCH (11:44)
[2018-09-17] MEDS: ASPirin 81 mg TAB PO SCH (11:45)
[2018-09-17] MEDS: NIFEdipine ER 30 MG TAB PO SCH (11:45)
[2018-09-17 12:52] VITALS: BP 102/65
[2018-09-17 13:00] VITALS: BP 116/62
[2018-09-17] MEDS: hydrOXYzine 25 MG TAB or CAP PO SCH ×2 (16:52→21:17)
[2018-09-17 17:00] VITALS: BP 90/49
[2018-09-17] MEDS: ATORVASTATIN 20 MG TAB PO SCH (21:17)
[2018-09-17] MEDS: TEMAZEPAM 15 MG CAP PO PRN (21:20)
[2018-09-17 22:00] VITALS: BP 100/68
[2018-09-18] VITALS (7 sets, daily range): BP systolic 97–107; BP diastolic 58–70
[2018-09-18] MEDS: ACCU-CHEK COMFORT CURVE STRIP VI SCH ×4 (00:11→19:01)
[2018-09-18] MEDS: LEVOTHYROXINE SODIUM 25 MCG TAB PO SCH (05:48)
[2018-09-18] MEDS: hydrOXYzine 25 MG TAB or CAP PO SCH ×3 (05:49→22:30)
[2018-09-18] MEDS: InsuLIN REG 1unit/0.01ml Soln (100units/ml) SC SCH ×4 (05:49→18:00)
[2018-09-18] MEDS: HYDROcodone-ACET 10/325MG TAB PO PRN ×3 (05:53→21:05)
[2018-09-18 07:13] LABS: Basophils # (auto) 0 uL; Basophils % (auto) 0.4 % (0.0-2.0); Eosinophils # (auto) 0.1 uL; Eosinophils % (auto) 2.6 % (0.0-7.0); Hematocrit 26.9 % (41.0-53.0); Hemoglobin 8.6 g/dL (13.5-17.5); Lymphocytes # (auto) 0.8 uL; Lymphocytes % (auto) 17.1 % (10.0-50.0); Mean Corpuscular Hemoglobin 30.6 pg (28.0-32.0); Mean Corpuscular Volume 95.6 fL (80.0-100.0); Monocytes # (auto) 0.7 uL; Neutrophils # (auto) 3.1 uL; Neutrophils % (auto) 64.9 % (37.0-80.0); Nucleated Red Blood Cells % 0.1 %; Platelet Count (auto) 185 10^3/uL (140-450); Red Blood Cells 2.81 10^6/uL (4.5-5.90); Red Cell Distribution Width 19.1 % (11.8-14.3); White Blood Cell 4.8 10^3/uL (4.4-10.8)
[2018-09-18 07:30] LABS: Potassium 4.1 mmol/L (3.5-5.1)
[2018-09-18 07:41] LABS: BUN/Creatinine Ratio 5.1; Calcium 8.2 mg/dL (8.5-10.1)
[2018-09-18] MEDS: SEVELAMER 800 MG TAB PO SCH ×3 (08:00→19:00)
[2018-09-18] MEDS: NIFEdipine ER 30 MG TAB PO SCH (10:00)
[2018-09-18] MEDS: CARVEDILOL 3.125 MG TAB PO SCH ×2 (10:00→22:30)
[2018-09-18] MEDS: ASPirin 81 mg TAB PO SCH (10:40)
[2018-09-18] MEDS: B-COMPLEX W/ C & FOLIC ACID(NEPHROVITE TAB) PO SCH (10:41)
[2018-09-18] MEDS: PANTOPRAZOLE 40 MG TAB PO SCH (10:41)
[2018-09-18] MEDS: FUROSEMIDE 40 MG TAB PO SCH (10:41)
[2018-09-18] MEDS ORDERED: BISACODYL 5 MG EC TAB PO ONE (13:30)
[2018-09-18] MEDS: diphenhdrAMINE HCL 25 MG CAP PO PRN (21:04)
[2018-09-18] MEDS: ATORVASTATIN 20 MG TAB PO SCH (22:29)
[2018-09-18] MEDS: TEMAZEPAM 15 MG CAP PO PRN (22:42)
[2018-09-19] MEDS: ACCU-CHEK COMFORT CURVE STRIP VI SCH ×4 (00:02→18:17)
[2018-09-19] MEDS: InsuLIN REG 1unit/0.01ml Soln (100units/ml) SC SCH ×4 (06:00→18:00)
[2018-09-19] MEDS: hydrOXYzine 25 MG TAB or CAP PO SCH ×3 (06:15→21:28)
[2018-09-19] MEDS: LEVOTHYROXINE SODIUM 25 MCG TAB PO SCH (06:15)
[2018-09-19 07:53] LABS: BUN/Creatinine Ratio 5.8; Calcium 8.4 mg/dL (8.5-10.1); Potassium 4.8 mmol/L (3.5-5.1)
[2018-09-19 07:58] LABS: Basophils # (auto) 0 uL; Basophils % (auto) 0.2 % (0.0-2.0); Eosinophils # (auto) 0.2 uL; Eosinophils % (auto) 4.2 % (0.0-7.0); Hemoglobin 8.5 g/dL (13.5-17.5); Lymphocytes # (auto) 0.8 uL; Lymphocytes % (auto) 16.6 % (10.0-50.0); Mean Corpuscular Hemoglobin 30.4 pg (28.0-32.0); Mean Corpuscular Hgb Conc. 31.6 g/dL (32.0-36.0); Mean Corpuscular Volume 96.4 fL (80.0-100.0); Monocytes # (auto) 0.8 uL; Monocytes % (auto) 15.6 % (0.0-12.0); Neutrophils # (auto) 3.1 uL; Neutrophils % (auto) 63.4 % (37.0-80.0); Nucleated Red Blood Cells % 0.1 %; Platelet Count (auto) 166 10^3/uL (140-450); Red Cell Distribution Width 19.1 % (11.8-14.3); White Blood Cell 4.9 10^3/uL (4.4-10.8)
[2018-09-19] MEDS: SEVELAMER 800 MG TAB PO SCH ×3 (08:01→18:17)
[2018-09-19] MEDS: diphenhdrAMINE HCL 25 MG CAP PO PRN (08:01)
[2018-09-19] MEDS: HYDROcodone-ACET 10/325MG TAB PO PRN ×3 (08:01→23:50)
[2018-09-19 09:00] VITALS: BP 105/75
[2018-09-19] MEDS: CARVEDILOL 3.125 MG TAB PO SCH ×2 (10:00→21:28)
[2018-09-19] MEDS: ASPirin 81 mg TAB PO SCH (10:31)
[2018-09-19] MEDS: B-COMPLEX W/ C & FOLIC ACID(NEPHROVITE TAB) PO SCH (10:32)
[2018-09-19] MEDS: PANTOPRAZOLE 40 MG TAB PO SCH (10:32)
[2018-09-19 12:33] VITALS: BP 91/60
[2018-09-19] MEDS: DOCUSATE SOD 100 MG CAP PO PRN (16:55)
[2018-09-19 17:16] VITALS: BP 111/55
[2018-09-19 20:00] VITALS: BP 117/60
[2018-09-19] MEDS: ATORVASTATIN 20 MG TAB PO SCH (21:28)
[2018-09-19 21:53] VITALS: BP 157/75
[2018-09-20] MEDS: ACCU-CHEK COMFORT CURVE STRIP VI SCH ×3 (00:14→12:00)
[2018-09-20] MEDS: ONDANSETRON HCL 4 MG/2 ML VIAL IV PRN ×2 (01:00→08:45)
[2018-09-20] MEDS: MORPHINE SULFATE 4 MG/ML SYR/VIAL IV PRN ×2 (01:03→08:45)
[2018-09-20 05:17] VITALS: BP 127/79
[2018-09-20] MEDS: InsuLIN REG 1unit/0.01ml Soln (100units/ml) SC SCH ×4 (05:17→18:00)
[2018-09-20] MEDS: LEVOTHYROXINE SODIUM 25 MCG TAB PO SCH (05:40)
[2018-09-20] MEDS: hydrOXYzine 25 MG TAB or CAP PO SCH ×3 (05:40→22:26)
[2018-09-20 05:55] LABS: Eosinophils # (auto) 0.2 uL; Hemoglobin 8.1 g/dL (13.5-17.5); Lymphocytes # (auto) 0.8 uL; Monocytes # (auto) 0.8 uL; White Blood Cell 5.6 10^3/uL (4.4-10.8)
[2018-09-20 06:02] LABS: Basophils # (auto) 0 uL; Basophils % (auto) 0.5 % (0.0-2.0); Eosinophils % (auto) 3.7 % (0.0-7.0); Hematocrit 25.8 % (41.0-53.0); Lymphocytes % (auto) 14.2 % (10.0-50.0); Mean Corpuscular Hemoglobin 30.2 pg (28.0-32.0); Mean Corpuscular Hgb Conc. 31.4 g/dL (32.0-36.0); Mean Corpuscular Volume 96.3 fL (80.0-100.0); Monocytes % (auto) 14.1 % (0.0-12.0); Neutrophils # (auto) 3.7 uL; Neutrophils % (auto) 67.5 % (37.0-80.0); Platelet Count (auto) 164 10^3/uL (140-450); Red Blood Cells 2.68 10^6/uL (4.5-5.90); Red Cell Distribution Width 19.3 % (11.8-14.3)
[2018-09-20 06:30] LABS: Potassium 5.1 mmol/L (3.5-5.1)
[2018-09-20 06:46] LABS: BUN/Creatinine Ratio 6.6; Calcium 8.3 mg/dL (8.5-10.1)
[2018-09-20] MEDS: SEVELAMER 800 MG TAB PO SCH ×3 (08:00→18:28)
[2018-09-20] MEDS ORDERED: ADENOSINE 66 MG in GIVE UN-DILUTED 0 ML IV STA (08:38)
[2018-09-20] MEDS: diphenhdrAMINE HCL 25 MG CAP PO PRN ×2 (08:44→15:30)
[2018-09-20 08:49] VITALS: BP 116/79
[2018-09-20] MEDS: CARVEDILOL 3.125 MG TAB PO SCH ×2 (10:00→22:26)
[2018-09-20] MEDS: B-COMPLEX W/ C & FOLIC ACID(NEPHROVITE TAB) PO SCH (11:02)
[2018-09-20] MEDS: ASPirin 81 mg TAB PO SCH (11:03)
[2018-09-20] MEDS: PANTOPRAZOLE 40 MG TAB PO SCH (11:04)
[2018-09-20] MEDS ORDERED: SODIUM CHL 0.9% 1000 ML BAG XX ONE (11:45)
[2018-09-20] MEDS ORDERED: EPOETIN ALFA 10,000 UNIT/1 ML VIAL IV ONE (11:45)
[2018-09-20 12:49] VITALS: BP 119/76
[2018-09-20 13:30] VITALS: BP 111/72
[2018-09-20] MEDS ORDERED: MORPHINE SULFATE 4 MG/ML SYR/VIAL IV PRN (14:15)
[2018-09-20] MEDS: DOCUSATE SOD 100 MG CAP PO PRN (15:30)
[2018-09-20 16:36] VITALS: BP 143/91
[2018-09-20] MEDS ORDERED: DEXTROSE (50%) 50ML SYRG IV PRN (18:30)
[2018-09-20] MEDS: HYDROcodone-ACET 10/325MG TAB PO PRN (19:45)
[2018-09-20 22:00] VITALS: BP 119/79
[2018-09-20] MEDS: ATORVASTATIN 20 MG TAB PO SCH (22:24)
[2018-09-20] MEDS: TEMAZEPAM 15 MG CAP PO PRN (22:24)
[2018-09-21] MEDS: ACCU-CHEK COMFORT CURVE STRIP VI SCH ×4 (00:32→18:35)
[2018-09-21] MEDS: diphenhdrAMINE HCL 25 MG CAP PO PRN ×3 (01:20→21:20)
[2018-09-21] MEDS: HYDROcodone-ACET 10/325MG TAB PO PRN ×2 (01:22→08:12)
[2018-09-21 05:00] VITALS: BP 102/72
[2018-09-21] MEDS: InsuLIN REG 1unit/0.01ml Soln (100units/ml) SC SCH ×4 (06:00→18:00)
[2018-09-21] MEDS: hydrOXYzine 25 MG TAB or CAP PO SCH ×3 (06:20→21:20)
[2018-09-21] MEDS: LEVOTHYROXINE SODIUM 25 MCG TAB PO SCH (06:21)
[2018-09-21 06:59] LABS: Hemoglobin 7.8 g/dL (13.5-17.5)
[2018-09-21 07:01] LABS: Basophils # (auto) 0 uL; Basophils % (auto) 0.6 % (0.0-2.0); Eosinophils # (auto) 0.2 uL; Lymphocytes # (auto) 0.7 uL
[2018-09-21 07:02] LABS: Calcium 8.2 mg/dL (8.5-10.1); Potassium 4.4 mmol/L (3.5-5.1)
[2018-09-21 07:06] LABS: BUN/Creatinine Ratio 6.2
[2018-09-21 07:07] LABS: Eosinophils % (auto) 3.5 % (0.0-7.0); Hematocrit 24.7 % (41.0-53.0); Lymphocytes % (auto) 12.9 % (10.0-50.0); Mean Corpuscular Hemoglobin 29.8 pg (28.0-32.0); Mean Corpuscular Hgb Conc. 31.6 g/dL (32.0-36.0); Mean Corpuscular Volume 94.4 fL (80.0-100.0); Monocytes # (auto) 0.9 uL; Monocytes % (auto) 17.3 % (0.0-12.0); Neutrophils # (auto) 3.4 uL; Neutrophils % (auto) 65.7 % (37.0-80.0); Platelet Count (auto) 163 10^3/uL (140-450); Red Blood Cells 2.62 10^6/uL (4.5-5.90); White Blood Cell 5.2 10^3/uL (4.4-10.8)
[2018-09-21 08:00] VITALS: BP 104/72
[2018-09-21] MEDS: SEVELAMER 800 MG TAB PO SCH ×3 (08:12→18:35)
[2018-09-21 08:38] VITALS: BP 104/72
[2018-09-21] MEDS: PANTOPRAZOLE 40 MG TAB PO SCH (10:40)
[2018-09-21] MEDS: CARVEDILOL 3.125 MG TAB PO SCH ×2 (10:41→22:00)
[2018-09-21] MEDS: B-COMPLEX W/ C & FOLIC ACID(NEPHROVITE TAB) PO SCH (10:42)
[2018-09-21] MEDS: ASPirin 81 mg TAB PO SCH (10:42)
[2018-09-21] MEDS: MORPHINE SULFATE 4 MG/ML SYR/VIAL IV PRN ×3 (10:55→21:11)
[2018-09-21] MEDS: ONDANSETRON HCL 4 MG/2 ML VIAL IV PRN ×3 (11:37→21:10)
[2018-09-21 13:09] VITALS: BP 92/60
[2018-09-21 17:24] VITALS: BP 118/76
[2018-09-21 20:05] LABS: INR 1.34 (0.9-1.15); Partial Thromboplastin Time 36.2 sec (23.78-33.04); Prothrombin Time 14.1 sec (9.27-12.13)
[2018-09-21] MEDS: ATORVASTATIN 20 MG TAB PO SCH (21:20)
[2018-09-21 22:00] VITALS: BP 99/58
[2018-09-22] MEDS: ACCU-CHEK COMFORT CURVE STRIP VI SCH ×5 (00:45→23:03)
[2018-09-22] MEDS: ONDANSETRON HCL 4 MG/2 ML VIAL IV PRN (01:23)
[2018-09-22] MEDS: MORPHINE SULFATE 4 MG/ML SYR/VIAL IV PRN ×2 (01:23→21:26)
[2018-09-22 05:00] VITALS: BP 139/91
[2018-09-22] MEDS: InsuLIN REG 1unit/0.01ml Soln (100units/ml) SC SCH ×5 (06:00→23:21)
[2018-09-22] MEDS: hydrOXYzine 25 MG TAB or CAP PO SCH ×3 (06:00→21:26)
[2018-09-22] MEDS: LEVOTHYROXINE SODIUM 25 MCG TAB PO SCH (06:49)
[2018-09-22] MEDS: SEVELAMER 800 MG TAB PO SCH ×3 (08:00→18:00)
[2018-09-22 08:40] VITALS: BP 139/62
[2018-09-22] MEDS ORDERED: SODIUM CHL 0.9% 1000 ML BAG XX ONE (09:00)
[2018-09-22] MEDS ORDERED: EPOETIN ALFA 10,000 UNIT/1 ML VIAL IV ONE (09:00)
[2018-09-22] MEDS ORDERED: LIDOCAINE 2%HCL (LOCAL ANESTH.) INJ 10ml MDV ONE (09:54)
[2018-09-22] MEDS ORDERED: IODIXANOL 320MG/ML 100ML BTL IV ONE (09:55)
[2018-09-22] MEDS: PANTOPRAZOLE 40 MG TAB PO SCH (10:00)
[2018-09-22] MEDS: B-COMPLEX W/ C & FOLIC ACID(NEPHROVITE TAB) PO SCH (10:00)
[2018-09-22] MEDS: CARVEDILOL 3.125 MG TAB PO SCH ×2 (10:00→21:26)
[2018-09-22] MEDS: ASPirin 81 mg TAB PO SCH (10:00)
[2018-09-22] MEDS ORDERED: MIDAZOLAM HCL 1MG/1ML-2 ML VIAL ONE (11:43)
[2018-09-22] MEDS ORDERED: ANGIOMAX 250 MG VIAL IV ONE (11:43)
[2018-09-22] MEDS ORDERED: SODIUM CHL 0.9% 0 ML ONE (11:43)
[2018-09-22] MEDS ORDERED: fentaNYL CITRATE 100 MCG/2 ML VL ONE (11:43)
[2018-09-22 16:51] VITALS: BP 122/81
[2018-09-22] MEDS: ATORVASTATIN 20 MG TAB PO SCH (21:26)
[2018-09-22 22:00] VITALS: BP 110/63
[2018-09-22] MEDS ORDERED: diphenhdrAMINE HCL 25 MG CAP PO ONE (22:15)
[2018-09-22] MEDS: diphenhdrAMINE HCL 25 MG CAP PO PRN (23:02)
[2018-09-22] MEDS: TEMAZEPAM 15 MG CAP PO PRN (23:22)
[2018-09-23] MEDS: MORPHINE SULFATE 4 MG/ML SYR/VIAL IV PRN ×4 (03:08→22:12)
[2018-09-23 05:00] VITALS: BP 102/69
[2018-09-23] MEDS: InsuLIN REG 1unit/0.01ml Soln (100units/ml) SC SCH ×3 (06:00→18:00)
[2018-09-23] MEDS: LEVOTHYROXINE SODIUM 25 MCG TAB PO SCH (06:21)
[2018-09-23] MEDS: hydrOXYzine 25 MG TAB or CAP PO SCH ×3 (06:21→22:11)
[2018-09-23] MEDS: ACCU-CHEK COMFORT CURVE STRIP VI SCH ×3 (06:22→18:00)
[2018-09-23 08:00] VITALS: BP 105/75
[2018-09-23] MEDS: SEVELAMER 800 MG TAB PO SCH ×3 (09:08→18:00)
[2018-09-23] MEDS: diphenhdrAMINE HCL 25 MG CAP PO PRN (09:08)
[2018-09-23] MEDS: ONDANSETRON HCL 4 MG/2 ML VIAL IV PRN (09:09)
[2018-09-23] MEDS: CARVEDILOL 3.125 MG TAB PO SCH ×2 (10:00→22:11)
[2018-09-23] MEDS: B-COMPLEX W/ C & FOLIC ACID(NEPHROVITE TAB) PO SCH (10:02)
[2018-09-23] MEDS: PANTOPRAZOLE 40 MG TAB PO SCH (10:02)
[2018-09-23] MEDS: ASPirin 81 mg TAB PO SCH (10:03)
[2018-09-23 12:00] VITALS: BP 103/77
[2018-09-23 16:00] VITALS: BP 123/51
[2018-09-23 21:02] VITALS: BP 112/74
[2018-09-23 22:00] VITALS: BP 112/74
[2018-09-23] MEDS: ATORVASTATIN 20 MG TAB PO SCH (22:11)
[2018-09-24] MEDS: ACCU-CHEK COMFORT CURVE STRIP VI SCH ×3 (01:53→13:44)
[2018-09-24] MEDS: MORPHINE SULFATE 4 MG/ML SYR/VIAL IV PRN (04:53)
[2018-09-24 05:00] VITALS: BP 113/78
[2018-09-24] MEDS: hydrOXYzine 25 MG TAB or CAP PO SCH ×2 (06:00→13:44)
[2018-09-24] MEDS: InsuLIN REG 1unit/0.01ml Soln (100units/ml) SC SCH ×3 (06:00→12:00)
[2018-09-24] MEDS: LEVOTHYROXINE SODIUM 25 MCG TAB PO SCH (06:56)
[2018-09-24 08:00] VITALS: BP 102/67
[2018-09-24 08:47] VITALS: BP 102/67
[2018-09-24] MEDS: PANTOPRAZOLE 40 MG TAB PO SCH (10:24)
[2018-09-24] MEDS: HYDROcodone-ACET 10/325MG TAB PO PRN (10:27)
[2018-09-24] MEDS: B-COMPLEX W/ C & FOLIC ACID(NEPHROVITE TAB) PO SCH (10:27)
[2018-09-24] MEDS: ASPirin 81 mg TAB PO SCH (10:28)
[2018-09-24] MEDS: SEVELAMER 800 MG TAB PO SCH ×2 (10:42→12:00)
[2018-09-24] MEDS: CARVEDILOL 3.125 MG TAB PO SCH (10:43)
[2018-09-24] MEDS ORDERED: SODIUM CHL 0.9% 1000 ML BAG XX ONE (11:00)
[2018-09-24] MEDS ORDERED: EPOETIN ALFA 10,000 UNIT/1 ML VIAL IV ONE (11:00)
[2018-09-24] MEDS: diphenhdrAMINE HCL 25 MG CAP PO PRN (12:55)
[2018-09-24 13:00] VITALS: BP 110/75
== END 2018-09-24 16:30 | disposition home or self-care (01) | DRG 280 ==
LOC: EDBD 17:30 → ER 17:35 → MERGE 17:36 → TELE 17:36 → TELE-EAST 22:17
PROVIDERS: ADMIT Nurse Practitioner; ATTEND Internal Medicine
PROC: 5A1D70Z Performance of Urinary Filtration, Intermittent, Less than 6 Hours Per Day (ICD-10-PCS; 2018-09-17)
PROC: 5A1D70Z Performance of Urinary Filtration, Intermittent, Less than 6 Hours Per Day (ICD-10-PCS; 2018-09-20)
PROC: 4A023N7 Measurement of Cardiac Sampling and Pressure, Left Heart, Percutaneous Approach (ICD-10-PCS; principal; 2018-09-22)
PROC: B2111ZZ Fluoroscopy of Multiple Coronary Arteries using Low Osmolar Contrast (ICD-10-PCS; 2018-09-22)
PROC: B2151ZZ Fluoroscopy of Left Heart using Low Osmolar Contrast (ICD-10-PCS; 2018-09-22)
PROC: 5A1D70Z Performance of Urinary Filtration, Intermittent, Less than 6 Hours Per Day (ICD-10-PCS; 2018-09-22)
PROC: 5A1D70Z Performance of Urinary Filtration, Intermittent, Less than 6 Hours Per Day (ICD-10-PCS; 2018-09-24)
DX: I21.4 Non-ST elevation (NSTEMI) myocardial infarction (principal); I50.43 Acute on chronic combined systolic (congestive) and diastolic (congestive) heart failure; N18.6 End stage renal disease; E43 Unspecified severe protein-calorie malnutrition; I13.2 Hypertensive heart and chronic kidney disease with heart failure and with stage 5 chronic kidney disease, or end stage renal disease; I42.9 Cardiomyopathy, unspecified; J98.11 Atelectasis; E87.1 Hypo-osmolality and hyponatremia; I25.10 Atherosclerotic heart disease of native coronary artery without angina pectoris; D63.1 Anemia in chronic kidney disease; Z68.24 Body mass index [BMI] 24.0-24.9, adult; E03.9 Hypothyroidism, unspecified; E11.21 Type 2 diabetes mellitus with diabetic nephropathy; Z99.2 Dependence on renal dialysis; E11.22 Type 2 diabetes mellitus with diabetic chronic kidney disease; E78.5 Hyperlipidemia, unspecified; F20.9 Schizophrenia, unspecified; G89.29 Other chronic pain; I70.0 Atherosclerosis of aorta; Z88.5 Allergy status to narcotic agent; M17.0 Bilateral primary osteoarthritis of knee; Z82.49 Family history of ischemic heart disease and other diseases of the circulatory system; Z86.73 Personal history of transient ischemic attack (TIA), and cerebral infarction without residual deficits; Z84.1 Family history of disorders of kidney and ureter; I08.2 Rheumatic disorders of both aortic and tricuspid valves; K59.00 Constipation, unspecified; M54.9 Dorsalgia, unspecified; Z71.3 Dietary counseling and surveillance
CPT/HCPCS: 36415; 71045; 71250; 78452; 80048; 80053; 82962; 83735; 83880; 84443; 84484; 85025; 85610; 85730; 86850; 86900; 86901; 87081; 90935; 93005; 93017; 93306; 94761; 96374; 96375; 99152; A6257; G0378; J0153; J0885; J1642; J2001; J2250; J2405; Q9967

== ENCOUNTER 2021-08-24 13:06 | Emergency (ER) | payer MEDICARE, OTHER ==
[~2021-08-24] VITALS: Ht 170.2 cm; Wt 77.1 kg
[~2021-08-24 13:06] MED LIST changes: +ALBUAER3 IN; +AMLO-489 PO; +APIX2.5T OR; -ATOR40TA52; +ATOR40TA52 PO; +BACL20TA PO; -CARV3.1240; +CARV6.2551 PO; +CITA10TA70 PO; +FAMO20TA10 PO; +HYDR-4798 PO; +HYDR50TA32 PO; +INSDRIP IV; +LEV100T PO; -LEVO25TA6 PO; +LISI-716 PO; -NIFE30TA76; +NIFE90TA49 PO; +SEVE800T8 PO; +SUCR1SUS10 PO; +TEMA15CA PO
[2021-08-24] MEDS ORDERED: ACETAMINOPHEN 325 MG TAB PO ONE (15:30)
[2021-08-24 18:18] VITALS: BP 142/75
== END 2021-08-24 19:05 | disposition home or self-care (01) ==
LOC: ER 13:06 → EDBD 13:06 → ER 19:05
DX: M25.511 Pain in right shoulder (principal); I13.2 Hypertensive heart and chronic kidney disease with heart failure and with stage 5 chronic kidney disease, or end stage renal disease; E11.22 Type 2 diabetes mellitus with diabetic chronic kidney disease; N18.6 End stage renal disease; I50.9 Heart failure, unspecified; I25.2 Old myocardial infarction; Z99.2 Dependence on renal dialysis; K21.9 Gastro-esophageal reflux disease without esophagitis; Z76.5 Malingerer [conscious simulation]; Z79.82 Long term (current) use of aspirin; Z79.4 Long term (current) use of insulin; Z79.899 Other long term (current) drug therapy; Z88.5 Allergy status to narcotic agent; W18.39XA Other fall on same level, initial encounter; Y93.89 Activity, other specified; Y92.89 Other specified places as the place of occurrence of the external cause; Y99.8 Other external cause status
CPT/HCPCS: 73030

== ENCOUNTER 2021-08-26 13:01 | Inpatient (IN) | payer MEDICARE, OTHER ==
[~2021-08-26] VITALS: Ht 188 cm; Wt 91.4 kg
[2021-08-26 13:57] LABS: Basophils # (auto) 0 10 ^3/uL (0-0.2); Basophils % (auto) 0.7 % (0.0-2.0); Eosinophils # (auto) 0 10 ^3/uL (0-0.8); Eosinophils % (auto) 0.1 % (0.0-7.0); Hematocrit 26.6 % (41.0-53.0); Hemoglobin 8.6 g/dL (13.5-17.5); Lymphocytes # (auto) 1.7 10 ^3/uL (0.4-5.4); Lymphocytes % (auto) 27.5 % (10.0-50.0); Mean Corpuscular Hemoglobin 27.8 pg (28.0-32.0); Mean Corpuscular Hgb Conc. 32.2 g/dL (32.0-36.0); Mean Corpuscular Volume 86.3 fL (80.0-100.0); Monocytes # (auto) 0.5 10 ^3/uL (0-1.3); Monocytes % (auto) 8.4 % (0.0-12.0); Neutrophils # (auto) 3.9 10 ^3/uL (1.6-8.6); Neutrophils % (auto) 63.3 % (37.0-80.0); Nucleated Red Blood Cells % 0.1 %; Red Blood Cells 3.09 10^6/uL (4.5-5.90); White Blood Cell 6.2 10^3/uL (4.4-10.8)
[2021-08-26 15:49] LABS: Alkaline Phosphatase 122 U/L (45-117); Anion Gap 7 (5-15); Aspartate Aminotransferase 87 U/L (15-37); BUN/Creatinine Ratio 6.5; Blood Urea Nitrogen 48 mg/dL (7-18); Carbon Dioxide 27 mmol/L (21-32); Chloride 101 mmol/L (98-107); GFR African American 10 mL/min; GFR Non-African American 8 mL/min; Glucose 70 mg/dL (74-106); Sodium 135 mmol/L (136-145)
[2021-08-26 15:50] LABS: Alanine Aminotransferase 36 U/L (16-61); Albumin 1.4 g/dL (3.4-5.0); Bilirubin, Total 0.9 mg/dL (0.2-1.0); Blood Alcohol < 3.0 mg/dL (0-5); Calcium 8.5 mg/dL (8.5-10.1); Magnesium 2.3 mg/dL (1.6-2.6); Total Protein 6.6 g/dL (6.4-8.2)
[2021-08-26 15:53] LABS: Potassium 6.6 mmol/L (3.5-5.1)
[2021-08-26] MEDS ORDERED: SODIUM BICARBONATE 8.4 % INJ 50ML VIAL IV ONE ×2 (16:00→23:00)
[2021-08-26] MEDS ORDERED: CALCIUM GLUC 1,000mg/50ml-NS 50 ML IV ONE ×2 (16:00→23:00)
[2021-08-26] MEDS ORDERED: InsuLIN REG 1unit/0.01ml Soln (100units/ml) IV ONE ×2 (17:30→23:00)
[2021-08-26] MEDS ORDERED: DEXTROSE (50%) 50ML SYRG IV ONE ×2 (17:30→23:00)
[2021-08-26] MEDS ORDERED: NITROGLYCERIN 0.4 MG SL TAB SL PRN (17:30)
[2021-08-26] MEDS ORDERED: ACETAMINOPHEN 500 MG TAB PO PRN (17:30)
[2021-08-26] MEDS ORDERED: SODIUM ZIRCONIUM CYCL 10 GM PAK PO ONE ×2 (17:30→23:00)
[2021-08-26] MEDS ORDERED: ALBUTEROL SULF 2.5 MG/0.5ML(0.5%) NEB SOLN NEB ONE ×2 (17:30→23:00)
[2021-08-26] MEDS ORDERED: BUMETANIDE 2.5mg/10ml (0.25 mg/ml) INJ IV ONE (19:30)
[2021-08-26] MEDS ORDERED: GABAPENTIN 300 MG CAP PO SCH (22:00)
[2021-08-26] MEDS: CARVEDILOL 3.125 MG TAB PO SCH (22:00)
[2021-08-26] MEDS: SODIUM ZIRCONIUM CYCL 10 GM PAK PO SCH (23:00)
[2021-08-27] MEDS ORDERED: DEXTROSE 10% 1,000 ML IV SCH (01:15)
[2021-08-27] MEDS: SODIUM ZIRCONIUM CYCL 10 GM PAK PO SCH ×4 (05:29→22:39)
[2021-08-27] MEDS ORDERED: DEXTROSE (50%) 50ML SYRG IV ONE (05:30)
[2021-08-27] MEDS: ACCU-CHEK COMFORT CURVE STRIP VI SCH ×6 (05:30→22:30)
[2021-08-27] MEDS ORDERED: SODIUM CHL 0.9% 1000 ML BAG XX ONE (07:00)
[2021-08-27 07:44] LABS: Basophils # (auto) 0 10 ^3/uL (0-0.2); Basophils % (auto) 1.1 % (0.0-2.0); Eosinophils # (auto) 0 10 ^3/uL (0-0.8); Hemoglobin 9.8 g/dL (13.5-17.5); Lymphocytes % (auto) 21.1 % (10.0-50.0); Mean Corpuscular Hemoglobin 28.8 pg (28.0-32.0); Mean Corpuscular Hgb Conc. 33.6 g/dL (32.0-36.0); Mean Corpuscular Volume 85.6 fL (80.0-100.0); Monocytes # (auto) 0.2 10 ^3/uL (0-1.3); Monocytes % (auto) 5.1 % (0.0-12.0); Neutrophils # (auto) 3.4 10 ^3/uL (1.6-8.6); Neutrophils % (auto) 72.7 % (37.0-80.0); Red Blood Cells 3.39 10^6/uL (4.5-5.90); Red Cell Distribution Width 21.5 % (11.8-14.3); White Blood Cell 4.7 10^3/uL (4.4-10.8)
[2021-08-27 08:00] LABS: BUN/Creatinine Ratio 6.9; Potassium 3.8 mmol/L (3.5-5.1)
[2021-08-27 08:01] LABS: % Iron Saturation 100.9 % (20-55)
[2021-08-27] MEDS: DEXTROSE 10% 1,000 ML IV SCH (08:36)
[2021-08-27] MEDS ORDERED: LEVOTHYROXINE SODIUM 100 MCG TAB PO SCH (10:00)
[2021-08-27] MEDS: CARVEDILOL 3.125 MG TAB PO SCH ×2 (10:00→22:30)
[2021-08-27] MEDS ORDERED: LEVOTHYROXINE SODIUM 100 MCG/5 ML INJ IV ONE (10:00)
[2021-08-27] MEDS ORDERED: LORazepam 2MG/ML-1ML VIAL IV ONE (10:30)
[2021-08-27] MEDS ORDERED: LORazepam 2MG/ML-1ML VIAL ONE (10:33)
[2021-08-27] MEDS: ATORVASTATIN 20 MG TAB PO SCH (10:41)
[2021-08-27] MEDS: FAMOTIDINE 20 MG TAB PO SCH (10:41)
[2021-08-27] MEDS: FERROUS SULFATE 325mg EC TAB PO SCH (10:41)
[2021-08-27] MEDS: ASPirin-EC 81 mg tab PO SCH (10:41)
[2021-08-27] MEDS ORDERED: LISI-275 PO (11:59)
[2021-08-27] MEDS ORDERED: AZITHROMYCIN 500MG/ 250ML 250 ML IV ONE (12:30)
[2021-08-27] MEDS ORDERED: cefTRIAXone 1GM/50ML D5W 50 ML IV ONE (12:30)
[2021-08-27] MEDS ORDERED: ACET325T10 PO (13:16)
[2021-08-27] MEDS ORDERED: BISA10SU45 RE (13:16)
[2021-08-27] MEDS ORDERED: CALC500C3 PO (13:16)
[2021-08-27] MEDS ORDERED: MEGE1SUS5 PO (13:16)
[2021-08-27] MEDS ORDERED: GABA400C11 PO (13:20)
[2021-08-27] MEDS ORDERED: VANCOMYCIN PER PHARMACY 0 MG IV SCH (15:45)
[2021-08-27] MEDS ORDERED: VANCOMYCIN 1GM/250ML 250 ML IV ONE (17:00)
[2021-08-27] MEDS ORDERED: EPOETIN ALFA-EPBX 10,000 UNIT/1ML VIAL SC ONE (21:00)
[2021-08-28] MEDS: ACCU-CHEK COMFORT CURVE STRIP VI SCH ×6 (02:42→21:47)
[2021-08-28] MEDS: DEXTROSE 10% 1,000 ML IV SCH ×3 (03:06→18:24)
[2021-08-28] MEDS: SODIUM ZIRCONIUM CYCL 10 GM PAK PO SCH ×2 (06:40→14:44)
[2021-08-28] MEDS: cefTRIAXone 1GM/50ML D5W 50 ML IV SCH (09:21)
[2021-08-28] MEDS: FERROUS SULFATE 325mg EC TAB PO SCH (09:22)
[2021-08-28] MEDS: CARVEDILOL 3.125 MG TAB PO SCH ×2 (09:22→21:27)
[2021-08-28] MEDS: ASPirin-EC 81 mg tab PO SCH (09:23)
[2021-08-28] MEDS: ATORVASTATIN 20 MG TAB PO SCH (09:23)
[2021-08-28] MEDS ORDERED: LEVOTHYROXINE SODIUM 100 MCG TAB PO SCH (10:00)
[2021-08-28] MEDS ORDERED: LEVOTHYROXINE SODIUM 25 MCG TAB PO SCH (10:00)
[2021-08-28] MEDS: AZITHROMYCIN 500MG/ 250ML 250 ML IV SCH (10:10)
[2021-08-28] MEDS ORDERED: LORazepam 2MG/ML-1ML VIAL IV ONE (10:45)
[2021-08-28] MEDS ORDERED: LEVOTHYROXINE SODIUM 100 MCG/5 ML INJ IV ONE (13:30)
[2021-08-28 14:43] LABS: Basophils # (auto) 0 10 ^3/uL (0-0.2); Eosinophils # (auto) 0 10 ^3/uL (0-0.8); Hematocrit 23.5 % (41.0-53.0); Hemoglobin 7.5 g/dL (13.5-17.5); Lymphocytes # (auto) 0.7 10 ^3/uL (0.4-5.4); Lymphocytes % (auto) 16.1 % (10.0-50.0); Monocytes # (auto) 0.3 10 ^3/uL (0-1.3)
[2021-08-28 14:46] LABS: Basophils % (auto) 0.4 % (0.0-2.0); Eosinophils % (auto) 0.4 % (0.0-7.0); Mean Corpuscular Hemoglobin 28.8 pg (28.0-32.0); Mean Corpuscular Hgb Conc. 31.8 g/dL (32.0-36.0); Mean Corpuscular Volume 90.5 fL (80.0-100.0); Monocytes % (auto) 6.6 % (0.0-12.0); Neutrophils # (auto) 3.4 10 ^3/uL (1.6-8.6); Neutrophils % (auto) 76.5 % (37.0-80.0); Nucleated Red Blood Cells % 0.1 %; White Blood Cell 4.4 10^3/uL (4.4-10.8)
[2021-08-28 14:49] LABS: INR 1.31 (0.9-1.15); Partial Thromboplastin Time 41.1 sec (23.6-33.0)
[2021-08-28 14:54] LABS: Albumin 1.1 g/dL (3.4-5.0); Calcium 7.4 mg/dL (8.5-10.1); Magnesium 1.9 mg/dL (1.6-2.6); Potassium 3.9 mmol/L (3.5-5.1)
[2021-08-28 14:58] LABS: Red Cell Distribution Width 22.8 % (11.8-14.3)
[2021-08-28 15:01] LABS: BUN/Creatinine Ratio 6.5; Bilirubin, Total 0.7 mg/dL (0.2-1.0); Total Protein 5.5 g/dL (6.4-8.2)
[2021-08-28] MEDS ORDERED: VANCOMYCIN 1GM/250ML 250 ML IV ONE (16:30)
[2021-08-28 17:00] VITALS: BP 128/88
[2021-08-28 22:00] VITALS: BP 149/81
[2021-08-29] MEDS: ACCU-CHEK COMFORT CURVE STRIP VI SCH ×6 (01:53→21:24)
[2021-08-29 05:00] VITALS: BP 107/55
[2021-08-29 06:29] LABS: Basophils # (auto) 0 10 ^3/uL (0-0.2); Basophils % (auto) 0.6 % (0.0-2.0); Eosinophils # (auto) 0 10 ^3/uL (0-0.8); Eosinophils % (auto) 0.3 % (0.0-7.0); Hematocrit 26.3 % (41.0-53.0); Hemoglobin 8.6 g/dL (13.5-17.5); Lymphocytes # (auto) 0.8 10 ^3/uL (0.4-5.4); Lymphocytes % (auto) 20.2 % (10.0-50.0); Mean Corpuscular Hemoglobin 28.4 pg (28.0-32.0); Mean Corpuscular Hgb Conc. 32.6 g/dL (32.0-36.0); Mean Corpuscular Volume 87.1 fL (80.0-100.0); Monocytes # (auto) 0.3 10 ^3/uL (0-1.3); Monocytes % (auto) 7.7 % (0.0-12.0); Neutrophils % (auto) 71.2 % (37.0-80.0); Nucleated Red Blood Cells % 0.3 %; Red Blood Cells 3.02 10^6/uL (4.5-5.90); Red Cell Distribution Width 22.3 % (11.8-14.3); White Blood Cell 4.1 10^3/uL (4.4-10.8)
[2021-08-29 06:38] LABS: Anion Gap 10 (5-15); BUN/Creatinine Ratio 6.7; Blood Urea Nitrogen 40 mg/dL (7-18); Calcium 8.1 mg/dL (8.5-10.1); Carbon Dioxide 25 mmol/L (21-32); Chloride 97 mmol/L (98-107); GFR African American 12 mL/min; GFR Non-African American 10 mL/min; Glucose 67 mg/dL (74-106); Potassium 4.3 mmol/L (3.5-5.1); Sodium 132 mmol/L (136-145)
[2021-08-29] MEDS: cefTRIAXone 1GM/50ML D5W 50 ML IV SCH (08:37)
[2021-08-29 09:00] VITALS: BP 100/60
[2021-08-29] MEDS: CARVEDILOL 3.125 MG TAB PO SCH ×2 (10:00→21:24)
[2021-08-29] MEDS: FAMOTIDINE 20 MG TAB PO SCH (10:00)
[2021-08-29] MEDS: ASPirin-EC 81 mg tab PO SCH (10:00)
[2021-08-29] MEDS: FERROUS SULFATE 325mg EC TAB PO SCH (10:00)
[2021-08-29] MEDS: ATORVASTATIN 20 MG TAB PO SCH (10:00)
[2021-08-29] MEDS: LEVOTHYROXINE SODIUM 100 MCG/5 ML INJ IV SCH (10:13)
[2021-08-29] MEDS: AZITHROMYCIN 500MG/ 250ML 250 ML IV SCH (10:13)
[2021-08-29 13:00] VITALS: BP 104/59
[2021-08-29] MEDS ORDERED: VANCOMYCIN 1GM/250ML 250 ML IV ONE (16:00)
[2021-08-29 17:00] VITALS: BP 96/61
[2021-08-29] MEDS: SACUBITRIL-VALSARTAN 24mg/26mg TAB PO SCH (21:24)
[2021-08-29 22:00] VITALS: BP 112/59
[2021-08-29] MEDS: LORazepam 0.5 MG TAB PO PRN (22:28)
[2021-08-29] MEDS: DEXTROSE 10% 1,000 ML IV SCH (23:29)
[2021-08-29] MEDS: ONDANSETRON HCL 4 MG/2 ML VIAL IV PRN (23:29)
[2021-08-30] MEDS: HYDROcodone-ACET 5/325MG TAB PO PRN ×2 (00:34→11:28)
[2021-08-30] MEDS: ACCU-CHEK COMFORT CURVE STRIP VI SCH ×6 (02:16→22:03)
[2021-08-30 05:00] VITALS: BP 90/47
[2021-08-30 06:13] VITALS: BP 106/64
[2021-08-30] MEDS ORDERED: SODIUM CHL 0.9% 1000 ML BAG XX ONE (07:00)
[2021-08-30] MEDS: cefTRIAXone 1GM/50ML D5W 50 ML IV SCH (08:20)
[2021-08-30 09:00] VITALS: BP 107/52
[2021-08-30] MEDS: CARVEDILOL 3.125 MG TAB PO SCH ×2 (10:00→21:54)
[2021-08-30] MEDS: LEVOTHYROXINE SODIUM 100 MCG/5 ML INJ IV SCH (10:24)
[2021-08-30] MEDS: AZITHROMYCIN 500MG/ 250ML 250 ML IV SCH (10:25)
[2021-08-30] MEDS: ATORVASTATIN 20 MG TAB PO SCH (10:25)
[2021-08-30] MEDS: FERROUS SULFATE 325mg EC TAB PO SCH (10:25)
[2021-08-30] MEDS: ASPirin-EC 81 mg tab PO SCH (10:25)
[2021-08-30 12:45] VITALS: BP 93/59
[2021-08-30] MEDS: LORazepam 0.5 MG TAB PO PRN ×2 (13:31→21:54)
[2021-08-30 14:08] LABS: Anion Gap 11 (5-15); Carbon Dioxide 25 mmol/L (21-32); Chloride 94 mmol/L (98-107); Potassium 4.5 mmol/L (3.5-5.1); Sodium 130 mmol/L (136-145)
[2021-08-30 14:09] LABS: BUN/Creatinine Ratio 6.5; Blood Urea Nitrogen 41 mg/dL (7-18); GFR African American 11 mL/min; GFR Non-African American 9 mL/min; Glucose 75 mg/dL (74-106)
[2021-08-30] MEDS: SACUBITRIL-VALSARTAN 24mg/26mg TAB PO SCH ×2 (15:22→21:54)
[2021-08-30 16:48] VITALS: BP 84/51
[2021-08-30] MEDS: LINEZOLID 600MG/300ML 300 ML IV SCH ×2 (16:49→21:54)
[2021-08-30] MEDS: DEXTROSE 10% 1,000 ML IV SCH (19:51)
[2021-08-30] MEDS ORDERED: EPOETIN ALFA-EPBX 10,000 UNIT/1ML VIAL SC ONE (21:00)
[2021-08-30 22:00] VITALS: BP 110/53
[2021-08-31] VITALS (23 sets, daily range): BP systolic 81–142; BP diastolic 49–85
[2021-08-31] MEDS: HYDROcodone-ACET 5/325MG TAB PO PRN ×2 (02:17→23:38)
[2021-08-31] MEDS: ACCU-CHEK COMFORT CURVE STRIP VI SCH ×6 (02:21→21:53)
[2021-08-31] MEDS: DEXTROSE 10% 1,000 ML IV SCH (02:43)
[2021-08-31 06:50] LABS: Basophils # (auto) 0 10 ^3/uL (0-0.2); Eosinophils # (auto) 0 10 ^3/uL (0-0.8); Hemoglobin 7.4 g/dL (13.5-17.5); Lymphocytes # (auto) 1.6 10 ^3/uL (0.4-5.4); Mean Corpuscular Hgb Conc. 33.3 g/dL (32.0-36.0); Nucleated Red Blood Cells % 0.1 %
[2021-08-31 06:54] LABS: Basophils % (auto) 0.5 % (0.0-2.0); Eosinophils % (auto) 0.1 % (0.0-7.0); Hematocrit 22.2 % (41.0-53.0); Mean Corpuscular Hemoglobin 28.2 pg (28.0-32.0); Mean Corpuscular Volume 84.6 fL (80.0-100.0); Monocytes # (auto) 0.6 10 ^3/uL (0-1.3); Monocytes % (auto) 11.2 % (0.0-12.0); Neutrophils # (auto) 2.7 10 ^3/uL (1.6-8.6); Neutrophils % (auto) 55.2 % (37.0-80.0); Red Blood Cells 2.63 10^6/uL (4.5-5.90); Red Cell Distribution Width 21.6 % (11.8-14.3); White Blood Cell 4.9 10^3/uL (4.4-10.8)
[2021-08-31] MEDS: AZITHROMYCIN 500MG/ 250ML 250 ML IV SCH (08:36)
[2021-08-31] MEDS: ATORVASTATIN 20 MG TAB PO SCH (10:12)
[2021-08-31] MEDS: FERROUS SULFATE 325mg EC TAB PO SCH (10:12)
[2021-08-31] MEDS: SACUBITRIL-VALSARTAN 24mg/26mg TAB PO SCH ×2 (10:12→21:53)
[2021-08-31] MEDS: ASPirin-EC 81 mg tab PO SCH (10:12)
[2021-08-31] MEDS: FAMOTIDINE 20 MG TAB PO SCH (10:12)
[2021-08-31] MEDS: LINEZOLID 600MG/300ML 300 ML IV SCH ×2 (10:13→21:53)
[2021-08-31] MEDS: LEVOTHYROXINE SODIUM 100 MCG/5 ML INJ IV SCH (10:13)
[2021-08-31] MEDS: CARVEDILOL 3.125 MG TAB PO SCH (10:13)
[2021-08-31] MEDS ORDERED: VANCOMYCIN HCL 1000 MG VL ONE (14:01)
[2021-08-31] MEDS ORDERED: fentaNYL CITRATE 100 MCG/2 ML VL ONE (14:02)
[2021-08-31] MEDS ORDERED: VANCOMYCIN 1GM/250ML 0 ML IV ONE (14:02)
[2021-08-31] MEDS ORDERED: MIDAZOLAM HCL 2MG/2ML 2ml VIAL (1mg/ml) ONE (14:02)
[2021-08-31] MEDS ORDERED: diphenhdrAMINE HCL 50 MG/1 ML VL ONE (14:02)
[2021-08-31] MEDS ORDERED: IODIXANOL 320MG/ML 100ML BTL IV ONE (14:03)
[2021-08-31] MEDS ORDERED: LIDOCAINE 2%HCL (LOCAL ANESTH.) INJ 20ML MDV ONE (14:10)
[2021-08-31] MEDS: DOPamine 1600MCG/ML D5W 250 ML IV SCH (15:45)
[2021-09-01] VITALS (68 sets, daily range): BP systolic 78–153; BP diastolic 37–118
[2021-09-01] MEDS: DEXTROSE 10% 1,000 ML IV SCH ×2 (01:04→17:30)
[2021-09-01] MEDS: LORazepam 0.5 MG TAB PO PRN ×2 (01:26→21:54)
[2021-09-01] MEDS: ACCU-CHEK COMFORT CURVE STRIP VI SCH ×6 (02:00→22:10)
[2021-09-01] MEDS: AZITHROMYCIN 500MG/ 250ML 250 ML IV SCH (08:33)
[2021-09-01 08:48] LABS: Calcium 7.9 mg/dL (8.5-10.1); Potassium 4.9 mmol/L (3.5-5.1)
[2021-09-01 09:11] LABS: BUN/Creatinine Ratio 6.9
[2021-09-01] MEDS: SACUBITRIL-VALSARTAN 24mg/26mg TAB PO SCH ×2 (10:00→22:10)
[2021-09-01] MEDS: DOPamine 1600MCG/ML D5W 250 ML IV SCH (10:15)
[2021-09-01] MEDS: ASPirin-EC 81 mg tab PO SCH (10:47)
[2021-09-01] MEDS: FERROUS SULFATE 325mg EC TAB PO SCH (10:48)
[2021-09-01] MEDS: LEVOTHYROXINE SODIUM 100 MCG/5 ML INJ IV SCH (10:48)
[2021-09-01] MEDS: ATORVASTATIN 20 MG TAB PO SCH (10:48)
[2021-09-01] MEDS: LINEZOLID 600MG/300ML 300 ML IV SCH ×2 (10:51→22:09)
[2021-09-01] MEDS: HYDROcodone-ACET 5/325MG TAB PO PRN ×2 (11:28→22:39)
[2021-09-01 11:36] LABS: Basophils # (auto) 0.1 10 ^3/uL (0-0.2); Basophils % (auto) 1.2 % (0.0-2.0); Eosinophils # (auto) 0 10 ^3/uL (0-0.8); Eosinophils % (auto) 0.1 % (0.0-7.0); Hematocrit 27.7 % (41.0-53.0); Hemoglobin 9.2 g/dL (13.5-17.5); Lymphocytes # (auto) 1.4 10 ^3/uL (0.4-5.4); Lymphocytes % (auto) 25.4 % (10.0-50.0); Mean Corpuscular Hemoglobin 28.6 pg (28.0-32.0); Mean Corpuscular Hgb Conc. 33.2 g/dL (32.0-36.0); Mean Corpuscular Volume 86.1 fL (80.0-100.0); Monocytes # (auto) 0.5 10 ^3/uL (0-1.3); Monocytes % (auto) 8.1 % (0.0-12.0); Neutrophils # (auto) 3.7 10 ^3/uL (1.6-8.6); Neutrophils % (auto) 65.2 % (37.0-80.0); Nucleated Red Blood Cells % 0.2 %; Red Blood Cells 3.22 10^6/uL (4.5-5.90); Red Cell Distribution Width 21.5 % (11.8-14.3); White Blood Cell 5.7 10^3/uL (4.4-10.8)
[2021-09-01] MEDS: ONDANSETRON HCL 4 MG/2 ML VIAL IV PRN (11:45)
[2021-09-01] MEDS ORDERED: DEXTROSE 50% SYRINGE 50 ML IV ONE (22:24)
[2021-09-01] MEDS: PROPOFOL 100 ML IV SCH (23:00)
[2021-09-02] VITALS (80 sets, daily range): BP systolic 95–166; BP diastolic 59–111
[2021-09-02] MEDS: ACCU-CHEK COMFORT CURVE STRIP VI SCH ×5 (02:00→21:43)
[2021-09-02 04:43] LABS: Basophils # (auto) 0 10 ^3/uL (0-0.2); Basophils % (auto) 0.7 % (0.0-2.0); Eosinophils # (auto) 0 10 ^3/uL (0-0.8); Hematocrit 26.3 % (41.0-53.0); Lymphocytes # (auto) 1.2 10 ^3/uL (0.4-5.4); Lymphocytes % (auto) 22.9 % (10.0-50.0); Mean Corpuscular Hemoglobin 28.9 pg (28.0-32.0); Mean Corpuscular Hgb Conc. 34.1 g/dL (32.0-36.0); Monocytes # (auto) 0.4 10 ^3/uL (0-1.3); Monocytes % (auto) 7.5 % (0.0-12.0); Neutrophils # (auto) 3.6 10 ^3/uL (1.6-8.6); Neutrophils % (auto) 68.9 % (37.0-80.0); Nucleated Red Blood Cells % 0.1 %; Red Blood Cells 3.09 10^6/uL (4.5-5.90); Red Cell Distribution Width 21.4 % (11.8-14.3); White Blood Cell 5.3 10^3/uL (4.4-10.8)
[2021-09-02 05:12] LABS: Potassium 4.7 mmol/L (3.5-5.1)
[2021-09-02 05:23] LABS: Albumin 1.4 g/dL (3.4-5.0); BUN/Creatinine Ratio 6.7; Bilirubin, Total 0.8 mg/dL (0.2-1.0); Total Protein 6.5 g/dL (6.4-8.2)
[2021-09-02] MEDS: AZITHROMYCIN 500MG/ 250ML 250 ML IV SCH (07:40)
[2021-09-02] MEDS ORDERED: SODIUM CHL 3% 200 ML IV ONE (08:15)
[2021-09-02] MEDS: DEXTROSE 10% 1,000 ML IV SCH (09:29)
[2021-09-02] MEDS: LEVOTHYROXINE SODIUM 100 MCG/5 ML INJ IV SCH (09:29)
[2021-09-02] MEDS: FERROUS SULFATE 325mg EC TAB PO SCH (09:30)
[2021-09-02] MEDS: ATORVASTATIN 20 MG TAB PO SCH (09:30)
[2021-09-02] MEDS: FAMOTIDINE 20 MG TAB PO SCH (09:30)
[2021-09-02] MEDS: ASPirin-EC 81 mg tab PO SCH (09:30)
[2021-09-02] MEDS: SACUBITRIL-VALSARTAN 24mg/26mg TAB PO SCH (09:30)
[2021-09-02] MEDS: LINEZOLID 600MG/300ML 300 ML IV SCH ×2 (09:31→21:33)
[2021-09-02] MEDS ORDERED: ETOMIDATE (2MG/ML) 20ML VIAL IV ONE (14:43)
[2021-09-02] MEDS ORDERED: SUCCINYLCHOLINE CHLORIDE 20 MG/ML 10ML VIAL IV ONE (14:44)
[2021-09-02] MEDS ORDERED: PROPOFOL 100 ML IV SCH (15:00)
[2021-09-02] MEDS ORDERED: PROPOFOL 100 ML IV ONE (15:00)
[2021-09-02] MEDS: fentaNYL Drip 2500mCg/250mlNS 250 ML IV SCH (15:25)
[2021-09-02] MEDS ORDERED: FAMOTIDINE (10MG/ML) 2ML VL IV ONE (15:45)
[2021-09-02] MEDS: MIDAZOLAM DRIP 50 mg/50mL 50 ML IV SCH (15:45)
[2021-09-02] MEDS ORDERED: cefTRIAXone 1GM/50ML D5W 50 ML IV ONE (16:00)
[2021-09-02] MEDS: InsuLIN REG 1unit/0.01ml Soln (100units/ml) SC SCH ×2 (16:00→21:42)
[2021-09-02] MEDS: PROPOFOL 100 ML IV SCH ×2 (16:24→18:50)
[2021-09-02] MEDS ORDERED: SODIUM CHL 0.9% 1000 ML BAG XX ONE (16:30)
[2021-09-02] MEDS ORDERED: EPOETIN ALFA-EPBX 10,000 UNIT/1ML VIAL SC ONE (21:00)
[2021-09-02] MEDS: DOPamine 1600MCG/ML D5W 250 ML IV SCH (22:38)
[2021-09-03] VITALS (98 sets, daily range): BP systolic 63–168; BP diastolic 39–97
[2021-09-03] MEDS: ACCU-CHEK COMFORT CURVE STRIP VI SCH ×6 (02:22→20:00)
[2021-09-03] MEDS: InsuLIN REG 1unit/0.01ml Soln (100units/ml) SC SCH ×6 (02:22→20:00)
[2021-09-03] MEDS: Nepro With Carb Steady 1 Liter Bottle GT SCH (02:25)
[2021-09-03 04:34] LABS: Basophils # (auto) 0.1 10 ^3/uL (0-0.2); Basophils % (auto) 1.3 % (0.0-2.0); Eosinophils # (auto) 0 10 ^3/uL (0-0.8); Eosinophils % (auto) 0.1 % (0.0-7.0); Hemoglobin 11.2 g/dL (13.5-17.5); Lymphocytes # (auto) 1.2 10 ^3/uL (0.4-5.4); Lymphocytes % (auto) 25.6 % (10.0-50.0); Mean Corpuscular Hemoglobin 28.8 pg (28.0-32.0); Mean Corpuscular Volume 84.6 fL (80.0-100.0); Monocytes # (auto) 0.4 10 ^3/uL (0-1.3); Monocytes % (auto) 9.5 % (0.0-12.0); Neutrophils % (auto) 63.5 % (37.0-80.0); Nucleated Red Blood Cells % 0.4 %; Red Blood Cells 3.91 10^6/uL (4.5-5.90); White Blood Cell 4.7 10^3/uL (4.4-10.8)
[2021-09-03 04:54] LABS: Potassium 4.5 mmol/L (3.5-5.1)
[2021-09-03 05:05] LABS: Albumin 1.1 g/dL (3.4-5.0); Bilirubin, Total 0.7 mg/dL (0.2-1.0); Calcium 7.9 mg/dL (8.5-10.1); Total Protein 6.1 g/dL (6.4-8.2)
[2021-09-03 05:30] LABS: Red Cell Distribution Width 21.2 % (11.8-14.3)
[2021-09-03] MEDS: DEXTROSE (50%) 50ML SYRG IV PRN ×3 (05:52→12:23)
[2021-09-03] MEDS: PROPOFOL 100 ML IV SCH ×2 (05:52→13:17)
[2021-09-03] MEDS ORDERED: NOREPINEPHRINE 8 MG/250ML KIT 250 ML IV ONE (09:07)
[2021-09-03] MEDS: NOREPINEPHRINE 8 MG/250ML KIT 250 ML IV SCH (09:17)
[2021-09-03] MEDS: ATORVASTATIN 20 MG TAB PO SCH (09:36)
[2021-09-03] MEDS: FAMOTIDINE (10MG/ML) 2ML VL IV SCH (09:36)
[2021-09-03] MEDS: LEVOTHYROXINE SODIUM 100 MCG/5 ML INJ IV SCH (09:36)
[2021-09-03] MEDS: ASPirin-EC 81 mg tab PO SCH (09:36)
[2021-09-03] MEDS: LINEZOLID 600MG/300ML 300 ML IV SCH ×2 (09:37→21:14)
[2021-09-03] MEDS ORDERED: ALBUMIN 25% 100 ML IV PRN (10:15)
[2021-09-03] MEDS: DOPamine 1600MCG/ML D5W 250 ML IV SCH (10:19)
[2021-09-03] MEDS: VASOPRESSIN 50 UNITS in D5W 5% 247.5 ML IV SCH (13:14)
[2021-09-03] MEDS: fentaNYL Drip 2500mCg/250mlNS 250 ML IV SCH (13:18)
[2021-09-03] MEDS ORDERED: EPINEPHrine HCL 1 MG/10 ML SYRG IV ONE ×2 (13:32→13:41)
[2021-09-03] MEDS ORDERED: SODIUM BICARBONATE 8.4% INJ 50ML SYRINGE IV ONE ×2 (13:32→13:41)
[2021-09-03] MEDS ORDERED: PIPERACILLIN-TAZOB 2.25GM 50 ML IV ONE (15:00)
[2021-09-03] MEDS: MIDAZOLAM DRIP 50 mg/50mL 50 ML IV SCH (15:17)
[2021-09-03] MEDS: PIPERACILLIN-TAZOB 2.25GM 50 ML IV SCH (16:21)
[2021-09-03] MEDS ORDERED: cefTRIAXone 1GM/50ML D5W 50 ML IV SCH (21:00)
[2021-09-03] MEDS ORDERED: EPOETIN ALFA-EPBX 10,000 UNIT/1ML VIAL SC ONE (21:00)
[2021-09-03 22:16] LABS: Hematocrit 27.2 % (41.0-53.0); Hemoglobin 8.9 g/dL (13.5-17.5)
[2021-09-03 22:35] LABS: % Iron Saturation 94.3 % (20-55)
[2021-09-04] VITALS (99 sets, daily range): BP systolic 83–136; BP diastolic 43–79
[2021-09-04] MEDS: ACCU-CHEK COMFORT CURVE STRIP VI SCH ×7 (00:19→23:44)
[2021-09-04] MEDS: PIPERACILLIN-TAZOB 2.25GM 50 ML IV SCH ×4 (00:19→23:46)
[2021-09-04] MEDS: NOREPINEPHRINE 8 MG/250ML KIT 250 ML IV SCH ×2 (01:20→18:20)
[2021-09-04] MEDS: InsuLIN REG 1unit/0.01ml Soln (100units/ml) SC SCH ×7 (04:00→23:44)
[2021-09-04 04:39] LABS: Basophils # (auto) 0 10 ^3/uL (0-0.2); Basophils % (auto) 0.7 % (0.0-2.0); Eosinophils # (auto) 0 10 ^3/uL (0-0.8); Eosinophils % (auto) 0.1 % (0.0-7.0); Hematocrit 27.1 % (41.0-53.0); Hemoglobin 9.2 g/dL (13.5-17.5); Lymphocytes % (auto) 19.2 % (10.0-50.0); Mean Corpuscular Hemoglobin 28.5 pg (28.0-32.0); Monocytes # (auto) 0.5 10 ^3/uL (0-1.3); Monocytes % (auto) 9.7 % (0.0-12.0); Neutrophils # (auto) 3.8 10 ^3/uL (1.6-8.6); Neutrophils % (auto) 70.3 % (37.0-80.0); Nucleated Red Blood Cells % 0.1 %; Red Blood Cells 3.23 10^6/uL (4.5-5.90); White Blood Cell 5.5 10^3/uL (4.4-10.8)
[2021-09-04 04:53] LABS: Calcium 7.7 mg/dL (8.5-10.1); Potassium 3.9 mmol/L (3.5-5.1)
[2021-09-04 04:55] LABS: BUN/Creatinine Ratio 6.8
[2021-09-04 05:04] LABS: Red Cell Distribution Width 21.4 % (11.8-14.3)
[2021-09-04] MEDS ORDERED: DEXTROSE 10% 1,000 ML IV ONE (05:26)
[2021-09-04] MEDS: DEXTROSE 10% 1,000 ML IV SCH (05:51)
[2021-09-04] MEDS: DEXTROSE (50%) 50ML SYRG IV PRN ×2 (07:42→09:16)
[2021-09-04] MEDS: PROPOFOL 100 ML IV SCH ×3 (08:46→18:19)
[2021-09-04] MEDS: ATORVASTATIN 20 MG TAB PO SCH (09:37)
[2021-09-04] MEDS: ASPirin-EC 81 mg tab PO SCH (09:37)
[2021-09-04] MEDS: LINEZOLID 600MG/300ML 300 ML IV SCH (09:37)
[2021-09-04] MEDS: LEVOTHYROXINE SODIUM 100 MCG/5 ML INJ IV SCH (09:37)
[2021-09-04] MEDS: FAMOTIDINE (10MG/ML) 2ML VL IV SCH (09:37)
[2021-09-04] MEDS: fentaNYL Drip 2500mCg/250mlNS 250 ML IV SCH (12:27)
[2021-09-04] MEDS: VASOPRESSIN 50 UNITS in D5W 5% 247.5 ML IV SCH (12:50)
[2021-09-04] MEDS ORDERED: HYDROCORTISONE SOD SUCC 100 MG/2ML INJ VIAL IV ONE (15:45)
[2021-09-04] MEDS ORDERED: VANCOMYCIN PER PHARMACY 0 MG IV SCH (15:45)
[2021-09-04] MEDS: MIDAZOLAM DRIP 50 mg/50mL 50 ML IV SCH (15:45)
[2021-09-04] MEDS ORDERED: VANCOMYCIN 1GM/250ML 250 ML IV ONE (18:00)
[2021-09-05] VITALS (110 sets, daily range): BP systolic 82–174; BP diastolic 48–93
[2021-09-05] MEDS: PROPOFOL 100 ML IV SCH ×5 (01:10→20:47)
[2021-09-05 04:00] LABS: Basophils # (auto) 0 10 ^3/uL (0-0.2); Eosinophils # (auto) 0 10 ^3/uL (0-0.8); Hematocrit 25.5 % (41.0-53.0); Hemoglobin 8.6 g/dL (13.5-17.5); Lymphocytes # (auto) 0.7 10 ^3/uL (0.4-5.4); Lymphocytes % (auto) 11.1 % (10.0-50.0); Mean Corpuscular Hemoglobin 28.3 pg (28.0-32.0); Mean Corpuscular Hgb Conc. 33.6 g/dL (32.0-36.0); Mean Corpuscular Volume 84.3 fL (80.0-100.0); Monocytes # (auto) 0.1 10 ^3/uL (0-1.3); Monocytes % (auto) 2.2 % (0.0-12.0); Neutrophils # (auto) 5.8 10 ^3/uL (1.6-8.6); Neutrophils % (auto) 86.7 % (37.0-80.0); Red Blood Cells 3.02 10^6/uL (4.5-5.90); White Blood Cell 6.7 10^3/uL (4.4-10.8)
[2021-09-05] MEDS: InsuLIN REG 1unit/0.01ml Soln (100units/ml) SC SCH ×5 (04:00→20:00)
[2021-09-05] MEDS: ACCU-CHEK COMFORT CURVE STRIP VI SCH ×5 (04:04→20:00)
[2021-09-05] MEDS: DEXTROSE 10% 1,000 ML IV SCH (04:04)
[2021-09-05 04:15] LABS: Red Cell Distribution Width 20.8 % (11.8-14.3)
[2021-09-05 04:20] LABS: Albumin 1.5 g/dL (3.4-5.0); Calcium 7.7 mg/dL (8.5-10.1); Potassium 4.5 mmol/L (3.5-5.1)
[2021-09-05 04:24] LABS: BUN/Creatinine Ratio 6.8; Bilirubin, Total 0.7 mg/dL (0.2-1.0); Total Protein 5.3 g/dL (6.4-8.2)
[2021-09-05] MEDS ORDERED: SODIUM CHL 0.9% 1000 ML BAG XX ONE (07:00)
[2021-09-05] MEDS: PIPERACILLIN-TAZOB 2.25GM 50 ML IV SCH ×3 (07:31→23:41)
[2021-09-05] MEDS ORDERED: ALBUMIN 25% 100 ML IV ONE (09:00)
[2021-09-05] MEDS: LEVOTHYROXINE SODIUM 100 MCG/5 ML INJ IV SCH (09:35)
[2021-09-05] MEDS: ATORVASTATIN 20 MG TAB PO SCH (09:35)
[2021-09-05] MEDS: ALBUMIN 25% 100 ML IV PRN ×2 (12:15→13:40)
[2021-09-05] MEDS: VASOPRESSIN 50 UNITS in D5W 5% 247.5 ML IV SCH (12:47)
[2021-09-05] MEDS: fentaNYL Drip 2500mCg/250mlNS 250 ML IV SCH (14:17)
[2021-09-05] MEDS ORDERED: HYDROCORTISONE SOD SUCC 100 MG/2ML INJ VIAL IV ONE (14:45)
[2021-09-05] MEDS: MIDAZOLAM DRIP 50 mg/50mL 50 ML IV SCH (15:45)
[2021-09-05] MEDS ORDERED: EPOETIN ALFA-EPBX 10,000 UNIT/1ML VIAL SC ONE (21:00)
[2021-09-05] MEDS: HYDROCORTISONE SOD SUCC 100 MG/2ML INJ VIAL IV SCH (21:41)
[2021-09-05] MEDS: NOREPINEPHRINE 8 MG/250ML KIT 250 ML IV SCH (23:30)
[2021-09-06] VITALS (108 sets, daily range): BP systolic 82–138; BP diastolic 49–84
[2021-09-06] MEDS: ACCU-CHEK COMFORT CURVE STRIP VI SCH ×6 (00:05→21:13)
[2021-09-06] MEDS: PROPOFOL 100 ML IV SCH ×5 (01:30→23:44)
[2021-09-06] MEDS: DEXTROSE 10% 1,000 ML IV SCH (01:30)
[2021-09-06] MEDS: InsuLIN REG 1unit/0.01ml Soln (100units/ml) SC SCH ×6 (04:00→20:00)
[2021-09-06 04:24] LABS: Basophils # (auto) 0 10 ^3/uL (0-0.2); Basophils % (auto) 0.1 % (0.0-2.0); Eosinophils # (auto) 0 10 ^3/uL (0-0.8); Monocytes # (auto) 0.2 10 ^3/uL (0-1.3)
[2021-09-06 04:28] LABS: Hematocrit 18.6 % (41.0-53.0); Lymphocytes # (auto) 0.6 10 ^3/uL (0.4-5.4); Lymphocytes % (auto) 8.4 % (10.0-50.0); Mean Corpuscular Hemoglobin 29.5 pg (28.0-32.0); Mean Corpuscular Hgb Conc. 35.3 g/dL (32.0-36.0); Mean Corpuscular Volume 83.6 fL (80.0-100.0); Monocytes % (auto) 2.7 % (0.0-12.0); Neutrophils # (auto) 5.9 10 ^3/uL (1.6-8.6); Neutrophils % (auto) 88.8 % (37.0-80.0); Red Blood Cells 2.22 10^6/uL (4.5-5.90); White Blood Cell 6.6 10^3/uL (4.4-10.8)
[2021-09-06 04:49] LABS: Red Cell Distribution Width 20.9 % (11.8-14.3)
[2021-09-06 04:50] LABS: Hemoglobin 6.5 g/dL (13.5-17.5)
[2021-09-06 05:09] LABS: BUN/Creatinine Ratio 6.6; Calcium 8.2 mg/dL (8.5-10.1); Potassium 4.1 mmol/L (3.5-5.1)
[2021-09-06] MEDS: PIPERACILLIN-TAZOB 2.25GM 50 ML IV SCH ×3 (08:00→23:41)
[2021-09-06] MEDS: FAMOTIDINE (10MG/ML) 2ML VL IV SCH (08:22)
[2021-09-06] MEDS: DOPamine 1600MCG/ML D5W 250 ML IV SCH (08:22)
[2021-09-06] MEDS: ATORVASTATIN 20 MG TAB PO SCH (08:23)
[2021-09-06] MEDS: LEVOTHYROXINE SODIUM 100 MCG/5 ML INJ IV SCH (08:23)
[2021-09-06] MEDS: HYDROCORTISONE SOD SUCC 100 MG/2ML INJ VIAL IV SCH ×2 (08:23→23:37)
[2021-09-06] MEDS: fentaNYL Drip 2500mCg/250mlNS 250 ML IV SCH (08:24)
[2021-09-06] MEDS: Nepro With Carb Steady 1 Liter Bottle GT SCH (08:25)
[2021-09-06] MEDS: VASOPRESSIN 50 UNITS in D5W 5% 247.5 ML IV SCH (13:00)
[2021-09-06] MEDS: MIDAZOLAM DRIP 50 mg/50mL 50 ML IV SCH (15:45)
[2021-09-07] VITALS (96 sets, daily range): BP systolic 82–145; BP diastolic 37–88
[2021-09-07] MEDS: ACCU-CHEK COMFORT CURVE STRIP VI SCH ×6 (00:23→20:00)
[2021-09-07] MEDS: DEXTROSE 10% 1,000 ML IV SCH ×2 (00:24→18:02)
[2021-09-07] MEDS: PROPOFOL 100 ML IV SCH (03:17)
[2021-09-07] MEDS: InsuLIN REG 1unit/0.01ml Soln (100units/ml) SC SCH ×6 (04:00→20:00)
[2021-09-07 04:48] LABS: Basophils # (auto) 0 10 ^3/uL (0-0.2); Eosinophils # (auto) 0 10 ^3/uL (0-0.8); Lymphocytes # (auto) 0.5 10 ^3/uL (0.4-5.4); Mean Corpuscular Hgb Conc. 33.9 g/dL (32.0-36.0); Monocytes # (auto) 0.2 10 ^3/uL (0-1.3)
[2021-09-07 04:49] LABS: Hematocrit 21.7 % (41.0-53.0); Hemoglobin 7.3 g/dL (13.5-17.5); Mean Corpuscular Hemoglobin 29.2 pg (28.0-32.0); Mean Corpuscular Volume 86.1 fL (80.0-100.0); Monocytes % (auto) 3.7 % (0.0-12.0); Neutrophils # (auto) 5.8 10 ^3/uL (1.6-8.6); Neutrophils % (auto) 88.3 % (37.0-80.0); Red Blood Cells 2.52 10^6/uL (4.5-5.90); Red Cell Distribution Width 19.5 % (11.8-14.3); White Blood Cell 6.6 10^3/uL (4.4-10.8)
[2021-09-07 05:12] LABS: BUN/Creatinine Ratio 7.6; Calcium 8.1 mg/dL (8.5-10.1); Potassium 4.2 mmol/L (3.5-5.1)
[2021-09-07] MEDS: DOPamine 1600MCG/ML D5W 250 ML IV SCH (06:21)
[2021-09-07] MEDS: ALBUMIN 25% 100 ML IV PRN ×2 (06:31→06:39)
[2021-09-07] MEDS ORDERED: SODIUM CHL 0.9% 1000 ML BAG XX ONE (07:00)
[2021-09-07] MEDS: PIPERACILLIN-TAZOB 2.25GM 50 ML IV SCH ×2 (08:46→17:49)
[2021-09-07] MEDS: ATORVASTATIN 20 MG TAB PO SCH (08:46)
[2021-09-07] MEDS: HYDROCORTISONE SOD SUCC 100 MG/2ML INJ VIAL IV SCH ×2 (08:46→21:30)
[2021-09-07] MEDS: LEVOTHYROXINE SODIUM 100 MCG/5 ML INJ IV SCH (08:46)
[2021-09-07] MEDS: NOREPINEPHRINE 8 MG/250ML KIT 250 ML IV SCH (08:46)
[2021-09-07] MEDS: fentaNYL Drip 2500mCg/250mlNS 250 ML IV SCH (08:47)
[2021-09-07] MEDS: MIDAZOLAM DRIP 50 mg/50mL 50 ML IV SCH (08:47)
[2021-09-07] MEDS ORDERED: VANCOMYCIN 1GM/250ML 250 ML IV ONE (12:00)
[2021-09-07] MEDS: VASOPRESSIN 50 UNITS in D5W 5% 247.5 ML IV SCH (13:00)
[2021-09-07] MEDS ORDERED: EPOETIN ALFA-EPBX 10,000 UNIT/1ML VIAL SC ONE (21:00)
[2021-09-08] VITALS (68 sets, daily range): BP systolic 85–165; BP diastolic 43–93
[2021-09-08] MEDS: PIPERACILLIN-TAZOB 2.25GM 50 ML IV SCH ×3 (01:25→16:00)
[2021-09-08] MEDS: ACCU-CHEK COMFORT CURVE STRIP VI SCH ×6 (01:26→20:00)
[2021-09-08] MEDS: PROPOFOL 100 ML IV SCH ×2 (01:28→12:08)
[2021-09-08] MEDS: InsuLIN REG 1unit/0.01ml Soln (100units/ml) SC SCH ×6 (04:00→20:00)
[2021-09-08] MEDS: ONDANSETRON HCL 4 MG/2 ML VIAL IV PRN (04:37)
[2021-09-08 05:04] LABS: Basophils # (auto) 0 10 ^3/uL (0-0.2); Eosinophils # (auto) 0 10 ^3/uL (0-0.8); Hemoglobin 7.5 g/dL (13.5-17.5); Lymphocytes # (auto) 0.4 10 ^3/uL (0.4-5.4); Mean Corpuscular Hemoglobin 29.8 pg (28.0-32.0); Monocytes # (auto) 0.3 10 ^3/uL (0-1.3)
[2021-09-08 05:07] LABS: Basophils % (auto) 0.1 % (0.0-2.0); Hematocrit 21.5 % (41.0-53.0); Lymphocytes % (auto) 6.2 % (10.0-50.0); Mean Corpuscular Hgb Conc. 34.7 g/dL (32.0-36.0); Mean Corpuscular Volume 86.1 fL (80.0-100.0); Monocytes % (auto) 5.1 % (0.0-12.0); Neutrophils # (auto) 5.9 10 ^3/uL (1.6-8.6); Neutrophils % (auto) 88.6 % (37.0-80.0); Red Cell Distribution Width 19.8 % (11.8-14.3); White Blood Cell 6.6 10^3/uL (4.4-10.8)
[2021-09-08] MEDS: NOREPINEPHRINE 8 MG/250ML KIT 250 ML IV SCH (09:15)
[2021-09-08] MEDS: ATORVASTATIN 20 MG TAB PO SCH (10:00)
[2021-09-08] MEDS: FAMOTIDINE (10MG/ML) 2ML VL IV SCH (12:08)
[2021-09-08] MEDS: LEVOTHYROXINE SODIUM 100 MCG/5 ML INJ IV SCH (12:09)
[2021-09-08] MEDS: HYDROCORTISONE SOD SUCC 100 MG/2ML INJ VIAL IV SCH (12:09)
[2021-09-08] MEDS: VASOPRESSIN 50 UNITS in D5W 5% 247.5 ML IV SCH (13:00)
[2021-09-08] MEDS: MIDAZOLAM DRIP 50 mg/50mL 50 ML IV SCH (15:45)
[2021-09-09] VITALS (95 sets, daily range): BP systolic 91–165; BP diastolic 48–80
[2021-09-09] MEDS: DOPamine 1600MCG/ML D5W 250 ML IV SCH ×3 (00:31→17:37)
[2021-09-09] MEDS: HYDROCORTISONE SOD SUCC 100 MG/2ML INJ VIAL IV SCH ×3 (01:14→22:26)
[2021-09-09] MEDS: PIPERACILLIN-TAZOB 2.25GM 50 ML IV SCH ×3 (01:14→19:29)
[2021-09-09] MEDS: ACCU-CHEK COMFORT CURVE STRIP VI SCH ×7 (01:15→23:58)
[2021-09-09] MEDS: DEXTROSE 10% 1,000 ML IV SCH ×2 (03:07→18:00)
[2021-09-09] MEDS: fentaNYL Drip 2500mCg/250mlNS 250 ML IV SCH ×2 (03:09→19:19)
[2021-09-09] MEDS: InsuLIN REG 1unit/0.01ml Soln (100units/ml) SC SCH ×6 (04:00→23:58)
[2021-09-09 07:51] LABS: BUN/Creatinine Ratio 9.6; Calcium 8.1 mg/dL (8.5-10.1); Potassium 3.2 mmol/L (3.5-5.1)
[2021-09-09] MEDS: NOREPINEPHRINE 8 MG/250ML KIT 250 ML IV SCH (09:15)
[2021-09-09] MEDS: LEVOTHYROXINE SODIUM 100 MCG/5 ML INJ IV SCH (11:57)
[2021-09-09] MEDS: PROPOFOL 100 ML IV SCH (11:58)
[2021-09-09] MEDS: VASOPRESSIN 50 UNITS in D5W 5% 247.5 ML IV SCH (13:00)
[2021-09-09 13:58] LABS: INR 1.17 (0.9-1.15); Partial Thromboplastin Time 30.2 sec (23.6-33.0)
[2021-09-09] MEDS: MIDAZOLAM DRIP 50 mg/50mL 50 ML IV SCH (15:45)
[2021-09-09] MEDS: ATORVASTATIN 20 MG TAB PO SCH (22:25)
[2021-09-10] VITALS (84 sets, daily range): BP systolic 87–148; BP diastolic 44–79
[2021-09-10] MEDS: InsuLIN REG 1unit/0.01ml Soln (100units/ml) SC SCH ×5 (04:00→20:00)
[2021-09-10] MEDS: ACCU-CHEK COMFORT CURVE STRIP VI SCH ×5 (04:00→20:00)
[2021-09-10 05:02] LABS: Basophils # (auto) 0 10 ^3/uL (0-0.2); Eosinophils # (auto) 0 10 ^3/uL (0-0.8); Neutrophils # (auto) 2.5 10 ^3/uL (1.6-8.6); White Blood Cell 3.5 10^3/uL (4.4-10.8)
[2021-09-10 05:04] LABS: Basophils % (auto) 0.1 % (0.0-2.0); Eosinophils % (auto) 0.1 % (0.0-7.0); Hematocrit 17.6 % (41.0-53.0); Lymphocytes # (auto) 0.7 10 ^3/uL (0.4-5.4); Lymphocytes % (auto) 19.3 % (10.0-50.0); Mean Corpuscular Hemoglobin 29.7 pg (28.0-32.0); Mean Corpuscular Hgb Conc. 34.2 g/dL (32.0-36.0); Mean Corpuscular Volume 86.8 fL (80.0-100.0); Monocytes # (auto) 0.3 10 ^3/uL (0-1.3); Monocytes % (auto) 9.4 % (0.0-12.0); Neutrophils % (auto) 71.1 % (37.0-80.0); Nucleated Red Blood Cells % 0.1 %; Red Blood Cells 2.03 10^6/uL (4.5-5.90)
[2021-09-10 05:22] LABS: Calcium 7.7 mg/dL (8.5-10.1)
[2021-09-10 05:24] LABS: BUN/Creatinine Ratio 10.2
[2021-09-10 05:36] LABS: Potassium 2.7 mmol/L (3.5-5.1)
[2021-09-10] MEDS ORDERED: SODIUM CHL 0.9% 1000 ML BAG XX ONE (07:00)
[2021-09-10] MEDS: LEVOTHYROXINE SODIUM 25 MCG TAB PO SCH (08:22)
[2021-09-10] MEDS: LEVOTHYROXINE SODIUM 100 MCG TAB PO SCH (08:22)
[2021-09-10] MEDS: DOPamine 1600MCG/ML D5W 250 ML IV SCH (08:26)
[2021-09-10] MEDS: NOREPINEPHRINE 8 MG/250ML KIT 250 ML IV SCH (09:15)
[2021-09-10] MEDS: ATORVASTATIN 20 MG TAB PO SCH ×2 (10:00→22:00)
[2021-09-10] MEDS: HYDROCORTISONE SOD SUCC 100 MG/2ML INJ VIAL IV SCH (10:20)
[2021-09-10] MEDS: FAMOTIDINE (10MG/ML) 2ML VL IV SCH (10:20)
[2021-09-10] MEDS: PIPERACILLIN-TAZOB 2.25GM 50 ML IV SCH ×3 (10:20→18:17)
[2021-09-10 10:32] LABS: Basophils # (auto) 0 10 ^3/uL (0-0.2); Eosinophils # (auto) 0 10 ^3/uL (0-0.8); Eosinophils % (auto) 0.1 % (0.0-7.0); Hematocrit 19.7 % (41.0-53.0); Lymphocytes # (auto) 0.7 10 ^3/uL (0.4-5.4); Lymphocytes % (auto) 13.8 % (10.0-50.0); Mean Corpuscular Hemoglobin 29.9 pg (28.0-32.0); Mean Corpuscular Hgb Conc. 34.7 g/dL (32.0-36.0); Mean Corpuscular Volume 86.1 fL (80.0-100.0); Monocytes # (auto) 0.7 10 ^3/uL (0-1.3); Monocytes % (auto) 14.3 % (0.0-12.0); Neutrophils # (auto) 3.5 10 ^3/uL (1.6-8.6); Neutrophils % (auto) 71.8 % (37.0-80.0); Nucleated Red Blood Cells % 0.1 %; Red Blood Cells 2.28 10^6/uL (4.5-5.90); Red Cell Distribution Width 19.1 % (11.8-14.3); White Blood Cell 4.8 10^3/uL (4.4-10.8)
[2021-09-10 10:34] LABS: Calcium 8.3 mg/dL (8.5-10.1)
[2021-09-10 10:37] LABS: Hemoglobin 6.8 g/dL (13.5-17.5)
[2021-09-10] MEDS: POTASSIUM CHL 20MEQ/100ML 100 ML IV SCH ×2 (12:15→14:15)
[2021-09-10] MEDS: VASOPRESSIN 50 UNITS in D5W 5% 247.5 ML IV SCH (13:00)
[2021-09-10] MEDS ORDERED: LIDOCAINE 2%HCL (LOCAL ANESTH.) INJ 20ML MDV ONE (14:45)
[2021-09-10] MEDS: fentaNYL Drip 2500mCg/250mlNS 250 ML IV SCH (15:00)
[2021-09-10] MEDS ORDERED: VANCOMYCIN HCL 1000 MG VL ONE (15:34)
[2021-09-10] MEDS: PROPOFOL 100 ML IV SCH (15:45)
[2021-09-10] MEDS: MIDAZOLAM DRIP 50 mg/50mL 50 ML IV SCH (15:45)
[2021-09-10] MEDS ORDERED: FUROSEMIDE 20 MG/2 ML VIAL ONE ×2 (15:51→15:59)
[2021-09-10] MEDS ORDERED: VANCOMYCIN 1GM/250ML 250 ML IV ONE (16:00)
[2021-09-10] MEDS ORDERED: GELATIN 1 SPONGE SIZE 100 TOP ONE (16:00)
[2021-09-10] MEDS: DEXTROSE 10% 1,000 ML IV SCH (18:00)
[2021-09-10] MEDS ORDERED: EPOETIN ALFA-EPBX 10,000 UNIT/1ML VIAL SC ONE (21:00)
[2021-09-11] VITALS (90 sets, daily range): BP systolic 88–166; BP diastolic 49–82
[2021-09-11] MEDS: HYDROCORTISONE SOD SUCC 100 MG/2ML INJ VIAL IV SCH ×3 (01:34→22:00)
[2021-09-11] MEDS: ACCU-CHEK COMFORT CURVE STRIP VI SCH ×6 (01:35→20:30)
[2021-09-11] MEDS: PIPERACILLIN-TAZOB 2.25GM 50 ML IV SCH ×3 (01:35→16:00)
[2021-09-11] MEDS: InsuLIN REG 1unit/0.01ml Soln (100units/ml) SC SCH ×6 (04:00→20:30)
[2021-09-11 04:11] LABS: Basophils # (auto) 0 10 ^3/uL (0-0.2); Eosinophils # (auto) 0 10 ^3/uL (0-0.8); Lymphocytes # (auto) 0.7 10 ^3/uL (0.4-5.4); Monocytes # (auto) 0.7 10 ^3/uL (0-1.3); Nucleated Red Blood Cells % 0.1 %; White Blood Cell 5.1 10^3/uL (4.4-10.8)
[2021-09-11 04:12] LABS: Eosinophils % (auto) 0.1 % (0.0-7.0); Hematocrit 19.7 % (41.0-53.0); Lymphocytes % (auto) 14.2 % (10.0-50.0); Mean Corpuscular Hemoglobin 29.9 pg (28.0-32.0); Mean Corpuscular Hgb Conc. 34.8 g/dL (32.0-36.0); Monocytes % (auto) 13.3 % (0.0-12.0); Neutrophils # (auto) 3.7 10 ^3/uL (1.6-8.6); Neutrophils % (auto) 72.4 % (37.0-80.0); Red Blood Cells 2.29 10^6/uL (4.5-5.90); Red Cell Distribution Width 18.6 % (11.8-14.3)
[2021-09-11 04:24] LABS: Hemoglobin 6.9 g/dL (13.5-17.5)
[2021-09-11 04:55] LABS: BUN/Creatinine Ratio 9.8; Calcium 7.7 mg/dL (8.5-10.1); Potassium 3.3 mmol/L (3.5-5.1)
[2021-09-11] MEDS: LEVOTHYROXINE SODIUM 25 MCG TAB PO SCH (07:00)
[2021-09-11] MEDS: LEVOTHYROXINE SODIUM 100 MCG TAB PO SCH (07:00)
[2021-09-11] MEDS: NOREPINEPHRINE 8 MG/250ML KIT 250 ML IV SCH (09:15)
[2021-09-11] MEDS: VASOPRESSIN 50 UNITS in D5W 5% 247.5 ML IV SCH (13:00)
[2021-09-11] MEDS: DOPamine 1600MCG/ML D5W 250 ML IV SCH ×2 (14:04→18:00)
[2021-09-11] MEDS: fentaNYL Drip 2500mCg/250mlNS 250 ML IV SCH (15:00)
[2021-09-11] MEDS: MIDAZOLAM DRIP 50 mg/50mL 50 ML IV SCH (15:45)
[2021-09-11] MEDS: PROPOFOL 100 ML IV SCH (16:04)
[2021-09-11] MEDS: DEXTROSE 10% 1,000 ML IV SCH (18:00)
[2021-09-11] MEDS: ATORVASTATIN 20 MG TAB PO SCH (22:00)
[2021-09-12] VITALS (102 sets, daily range): BP systolic 83–167; BP diastolic 48–78
[2021-09-12] MEDS: ACCU-CHEK COMFORT CURVE STRIP VI SCH ×6 (00:13→20:28)
[2021-09-12] MEDS: PIPERACILLIN-TAZOB 2.25GM 50 ML IV SCH ×3 (00:13→16:00)
[2021-09-12] MEDS: DEXTROSE (50%) 50ML SYRG IV PRN (00:14)
[2021-09-12] MEDS: PROPOFOL 100 ML IV SCH ×4 (02:49→20:31)
[2021-09-12] MEDS: fentaNYL Drip 2500mCg/250mlNS 250 ML IV SCH (02:50)
[2021-09-12] MEDS: InsuLIN REG 1unit/0.01ml Soln (100units/ml) SC SCH ×6 (04:00→20:00)
[2021-09-12] MEDS: DOPamine 1600MCG/ML D5W 250 ML IV SCH (04:05)
[2021-09-12] MEDS: DEXTROSE 10% 1,000 ML IV SCH ×2 (04:15→17:46)
[2021-09-12 04:20] LABS: Basophils # (auto) 0 10 ^3/uL (0-0.2); Eosinophils # (auto) 0 10 ^3/uL (0-0.8); Lymphocytes # (auto) 0.7 10 ^3/uL (0.4-5.4); Monocytes # (auto) 0.4 10 ^3/uL (0-1.3)
[2021-09-12 04:22] LABS: Basophils % (auto) 0.1 % (0.0-2.0); Eosinophils % (auto) 0.1 % (0.0-7.0); Hematocrit 18.4 % (41.0-53.0); Lymphocytes % (auto) 12.4 % (10.0-50.0); Mean Corpuscular Hemoglobin 29.9 pg (28.0-32.0); Mean Corpuscular Hgb Conc. 34.6 g/dL (32.0-36.0); Mean Corpuscular Volume 86.2 fL (80.0-100.0); Monocytes % (auto) 6.6 % (0.0-12.0); Neutrophils # (auto) 4.5 10 ^3/uL (1.6-8.6); Neutrophils % (auto) 80.8 % (37.0-80.0); Nucleated Red Blood Cells % 0.1 %; Red Blood Cells 2.13 10^6/uL (4.5-5.90); Red Cell Distribution Width 18.9 % (11.8-14.3); White Blood Cell 5.6 10^3/uL (4.4-10.8)
[2021-09-12 04:32] LABS: Hemoglobin 6.4 g/dL (13.5-17.5)
[2021-09-12 04:40] LABS: Calcium 7.6 mg/dL (8.5-10.1); Potassium 3.1 mmol/L (3.5-5.1)
[2021-09-12] MEDS: LEVOTHYROXINE SODIUM 25 MCG TAB PO SCH (06:46)
[2021-09-12] MEDS: LEVOTHYROXINE SODIUM 100 MCG TAB PO SCH (06:46)
[2021-09-12] MEDS ORDERED: SODIUM CHL 0.9% 1000 ML BAG XX ONE (09:00)
[2021-09-12] MEDS: NOREPINEPHRINE 8 MG/250ML KIT 250 ML IV SCH ×2 (09:15→11:55)
[2021-09-12] MEDS: HYDROCORTISONE SOD SUCC 100 MG/2ML INJ VIAL IV SCH ×2 (10:50→22:17)
[2021-09-12] MEDS: FAMOTIDINE (10MG/ML) 2ML VL IV SCH (10:51)
[2021-09-12] MEDS: VASOPRESSIN 50 UNITS in D5W 5% 247.5 ML IV SCH (13:00)
[2021-09-12] MEDS: Nepro With Carb Steady 1 Liter Bottle GT SCH (15:30)
[2021-09-12] MEDS: MIDAZOLAM DRIP 50 mg/50mL 50 ML IV SCH (15:45)
[2021-09-12 16:02] LABS: Basophils # (auto) 0 10 ^3/uL (0-0.2); Basophils % (auto) 0.1 % (0.0-2.0); Eosinophils # (auto) 0 10 ^3/uL (0-0.8); Hematocrit 20.3 % (41.0-53.0); Hemoglobin 7.1 g/dL (13.5-17.5); Lymphocytes # (auto) 1.1 10 ^3/uL (0.4-5.4); Lymphocytes % (auto) 13.2 % (10.0-50.0); Mean Corpuscular Hemoglobin 30.2 pg (28.0-32.0); Mean Corpuscular Hgb Conc. 34.9 g/dL (32.0-36.0); Mean Corpuscular Volume 86.5 fL (80.0-100.0); Monocytes # (auto) 0.5 10 ^3/uL (0-1.3); Monocytes % (auto) 5.3 % (0.0-12.0); Neutrophils % (auto) 81.4 % (37.0-80.0); Nucleated Red Blood Cells % 0.2 %; Red Blood Cells 2.35 10^6/uL (4.5-5.90); Red Cell Distribution Width 19.5 % (11.8-14.3); White Blood Cell 8.6 10^3/uL (4.4-10.8)
[2021-09-12 16:19] LABS: BUN/Creatinine Ratio 9.4; Calcium 7.8 mg/dL (8.5-10.1); Potassium 3.2 mmol/L (3.5-5.1)
[2021-09-12] MEDS ORDERED: EPOETIN ALFA-EPBX 10,000 UNIT/1ML VIAL SC ONE (21:00)
[2021-09-12] MEDS: ATORVASTATIN 20 MG TAB PO SCH (22:17)
[2021-09-13] VITALS (88 sets, daily range): BP systolic 109–166; BP diastolic 53–96
[2021-09-13] MEDS: PIPERACILLIN-TAZOB 2.25GM 50 ML IV SCH ×4 (00:32→23:58)
[2021-09-13] MEDS: fentaNYL Drip 2500mCg/250mlNS 250 ML IV SCH (01:36)
[2021-09-13] MEDS: PROPOFOL 100 ML IV SCH ×2 (02:06→07:51)
[2021-09-13] MEDS: InsuLIN REG 1unit/0.01ml Soln (100units/ml) SC SCH ×6 (04:00→20:00)
[2021-09-13] MEDS: ACCU-CHEK COMFORT CURVE STRIP VI SCH ×6 (04:00→20:00)
[2021-09-13 04:46] LABS: Basophils # (auto) 0 10 ^3/uL (0-0.2); Basophils % (auto) 0.1 % (0.0-2.0); Eosinophils # (auto) 0 10 ^3/uL (0-0.8); Hematocrit 25.1 % (41.0-53.0); Hemoglobin 8.6 g/dL (13.5-17.5); Lymphocytes # (auto) 0.8 10 ^3/uL (0.4-5.4); Lymphocytes % (auto) 9.3 % (10.0-50.0); Mean Corpuscular Hgb Conc. 34.4 g/dL (32.0-36.0); Mean Corpuscular Volume 87.3 fL (80.0-100.0); Monocytes # (auto) 0.4 10 ^3/uL (0-1.3); Neutrophils # (auto) 7.5 10 ^3/uL (1.6-8.6); Neutrophils % (auto) 85.6 % (37.0-80.0); Nucleated Red Blood Cells % 0.3 %; Red Blood Cells 2.87 10^6/uL (4.5-5.90); Red Cell Distribution Width 18.4 % (11.8-14.3); White Blood Cell 8.8 10^3/uL (4.4-10.8)
[2021-09-13 05:15] LABS: Albumin 1.8 g/dL (3.4-5.0); Calcium 7.8 mg/dL (8.5-10.1); Potassium 3.3 mmol/L (3.5-5.1)
[2021-09-13 05:19] LABS: BUN/Creatinine Ratio 9.2; Total Protein 5.2 g/dL (6.4-8.2)
[2021-09-13] MEDS: LEVOTHYROXINE SODIUM 25 MCG TAB PO SCH (07:28)
[2021-09-13] MEDS: LEVOTHYROXINE SODIUM 100 MCG TAB PO SCH (07:28)
[2021-09-13] MEDS: HYDROCORTISONE SOD SUCC 100 MG/2ML INJ VIAL IV SCH ×2 (09:07→22:06)
[2021-09-13] MEDS: VASOPRESSIN 50 UNITS in D5W 5% 247.5 ML IV SCH (13:00)
[2021-09-13] MEDS ORDERED: SODIUM CHL 0.9% 1000 ML BAG XX ONE (13:15)
[2021-09-13] MEDS: MIDAZOLAM DRIP 50 mg/50mL 50 ML IV SCH (15:45)
[2021-09-13] MEDS ORDERED: VANCOMYCIN 750mg/250ml 250 ML IV ONE (18:00)
[2021-09-13] MEDS: DEXTROSE 10% 1,000 ML IV SCH (18:00)
[2021-09-13] MEDS ORDERED: EPOETIN ALFA-EPBX 10,000 UNIT/1ML VIAL SC ONE (21:00)
[2021-09-13] MEDS: ATORVASTATIN 20 MG TAB PO SCH (22:06)
[2021-09-14] VITALS (90 sets, daily range): BP systolic 111–167; BP diastolic 58–100
[2021-09-14] MEDS: ACCU-CHEK COMFORT CURVE STRIP VI SCH ×6 (04:00→20:51)
[2021-09-14] MEDS: InsuLIN REG 1unit/0.01ml Soln (100units/ml) SC SCH ×6 (04:00→20:50)
[2021-09-14 04:08] LABS: Basophils # (auto) 0 10 ^3/uL (0-0.2); Basophils % (auto) 0.1 % (0.0-2.0); Eosinophils # (auto) 0 10 ^3/uL (0-0.8); Lymphocytes # (auto) 0.8 10 ^3/uL (0.4-5.4); Monocytes # (auto) 0.5 10 ^3/uL (0-1.3)
[2021-09-14 04:13] LABS: Eosinophils % (auto) 0.2 % (0.0-7.0); Hematocrit 23.9 % (41.0-53.0); Hemoglobin 8.2 g/dL (13.5-17.5); Lymphocytes % (auto) 8.2 % (10.0-50.0); Mean Corpuscular Hemoglobin 30.3 pg (28.0-32.0); Mean Corpuscular Hgb Conc. 34.3 g/dL (32.0-36.0); Mean Corpuscular Volume 88.5 fL (80.0-100.0); Monocytes % (auto) 5.1 % (0.0-12.0); Neutrophils # (auto) 8.1 10 ^3/uL (1.6-8.6); Neutrophils % (auto) 86.4 % (37.0-80.0); Nucleated Red Blood Cells % 0.2 %; Red Cell Distribution Width 18.1 % (11.8-14.3); White Blood Cell 9.3 10^3/uL (4.4-10.8)
[2021-09-14 04:22] LABS: Potassium 3.2 mmol/L (3.5-5.1)
[2021-09-14 04:27] LABS: BUN/Creatinine Ratio 7.4; Calcium 7.8 mg/dL (8.5-10.1)
[2021-09-14] MEDS ORDERED: POTASSIUM CHL 20MEQ/100ML 100 ML IV ONE ×2 (05:45→05:49)
[2021-09-14] MEDS: LEVOTHYROXINE SODIUM 25 MCG TAB PO SCH (06:54)
[2021-09-14] MEDS: LEVOTHYROXINE SODIUM 100 MCG TAB PO SCH (06:54)
[2021-09-14] MEDS: PIPERACILLIN-TAZOB 2.25GM 50 ML IV SCH ×3 (08:02→22:29)
[2021-09-14] MEDS: NOREPINEPHRINE 8 MG/250ML KIT 250 ML IV SCH (09:15)
[2021-09-14] MEDS: FAMOTIDINE (10MG/ML) 2ML VL IV SCH (09:59)
[2021-09-14] MEDS: HYDROCORTISONE SOD SUCC 100 MG/2ML INJ VIAL IV SCH ×2 (09:59→22:29)
[2021-09-14] MEDS: VASOPRESSIN 50 UNITS in D5W 5% 247.5 ML IV SCH (13:00)
[2021-09-14] MEDS: PROPOFOL 100 ML IV SCH ×2 (13:39→18:37)
[2021-09-14] MEDS: Nepro With Carb Steady 1 Liter Bottle GT SCH (14:21)
[2021-09-14] MEDS: fentaNYL Drip 2500mCg/250mlNS 250 ML IV SCH (15:00)
[2021-09-14] MEDS: MIDAZOLAM DRIP 50 mg/50mL 50 ML IV SCH (15:45)
[2021-09-14] MEDS: DEXTROSE 10% 1,000 ML IV SCH (18:00)
[2021-09-14] MEDS: DEXTROSE (50%) 50ML SYRG IV PRN (20:52)
[2021-09-14] MEDS: ATORVASTATIN 20 MG TAB PO SCH (22:29)
[2021-09-15] VITALS (101 sets, daily range): BP systolic 134–168; BP diastolic 52–95
[2021-09-15] MEDS: ACCU-CHEK COMFORT CURVE STRIP VI SCH ×7 (00:13→23:37)
[2021-09-15] MEDS: PROPOFOL 100 ML IV SCH ×4 (01:30→23:39)
[2021-09-15] MEDS: InsuLIN REG 1unit/0.01ml Soln (100units/ml) SC SCH ×7 (04:00→23:38)
[2021-09-15 04:23] LABS: Basophils # (auto) 0 10 ^3/uL (0-0.2); Basophils % (auto) 0.2 % (0.0-2.0); Eosinophils # (auto) 0 10 ^3/uL (0-0.8); Eosinophils % (auto) 0.1 % (0.0-7.0); Hematocrit 21.2 % (41.0-53.0); Hemoglobin 7.2 g/dL (13.5-17.5); Lymphocytes # (auto) 0.8 10 ^3/uL (0.4-5.4); Lymphocytes % (auto) 7.6 % (10.0-50.0); Mean Corpuscular Hemoglobin 30.2 pg (28.0-32.0); Mean Corpuscular Hgb Conc. 34.1 g/dL (32.0-36.0); Mean Corpuscular Volume 88.7 fL (80.0-100.0); Monocytes # (auto) 0.5 10 ^3/uL (0-1.3); Monocytes % (auto) 4.9 % (0.0-12.0); Neutrophils # (auto) 8.7 10 ^3/uL (1.6-8.6); Neutrophils % (auto) 87.2 % (37.0-80.0); Nucleated Red Blood Cells % 0.2 %; Red Blood Cells 2.39 10^6/uL (4.5-5.90); Red Cell Distribution Width 18.3 % (11.8-14.3)
[2021-09-15 04:43] LABS: Potassium 3.3 mmol/L (3.5-5.1)
[2021-09-15 04:50] LABS: BUN/Creatinine Ratio 7.6; Calcium 7.9 mg/dL (8.5-10.1)
[2021-09-15] MEDS: Nepro With Carb Steady 1 Liter Bottle GT SCH (05:30)
[2021-09-15] MEDS: LEVOTHYROXINE SODIUM 25 MCG TAB PO SCH (06:24)
[2021-09-15] MEDS: LEVOTHYROXINE SODIUM 100 MCG TAB PO SCH (06:24)
[2021-09-15] MEDS: PIPERACILLIN-TAZOB 2.25GM 50 ML IV SCH ×3 (07:54→23:37)
[2021-09-15] MEDS: NOREPINEPHRINE 8 MG/250ML KIT 250 ML IV SCH (09:15)
[2021-09-15] MEDS: HYDROCORTISONE SOD SUCC 100 MG/2ML INJ VIAL IV SCH ×2 (09:26→21:56)
[2021-09-15] MEDS: VASOPRESSIN 50 UNITS in D5W 5% 247.5 ML IV SCH (13:00)
[2021-09-15] MEDS: fentaNYL Drip 2500mCg/250mlNS 250 ML IV SCH (15:00)
[2021-09-15] MEDS: MIDAZOLAM DRIP 50 mg/50mL 50 ML IV SCH (15:45)
[2021-09-15] MEDS: DEXTROSE 10% 1,000 ML IV SCH (18:00)
[2021-09-15] MEDS: ATORVASTATIN 20 MG TAB PO SCH (21:56)
[2021-09-16] VITALS (102 sets, daily range): BP systolic 130–196; BP diastolic 61–133
[2021-09-16] MEDS ORDERED: hydrALAZINE HCL 20 MG/ML VL ONE (03:01)
[2021-09-16] MEDS: hydrALAZINE HCL 20 MG/ML VL IV PRN ×2 (03:03→09:17)
[2021-09-16] MEDS: ACCU-CHEK COMFORT CURVE STRIP VI SCH ×6 (03:54→23:55)
[2021-09-16] MEDS: InsuLIN REG 1unit/0.01ml Soln (100units/ml) SC SCH ×6 (03:54→23:55)
[2021-09-16] MEDS: PROPOFOL 100 ML IV SCH ×2 (04:00→09:16)
[2021-09-16 04:50] LABS: Basophils # (auto) 0 10 ^3/uL (0-0.2); Basophils % (auto) 0.1 % (0.0-2.0); Eosinophils # (auto) 0 10 ^3/uL (0-0.8); Eosinophils % (auto) 0.1 % (0.0-7.0); Neutrophils # (auto) 10.6 10 ^3/uL (1.6-8.6); White Blood Cell 11.8 10^3/uL (4.4-10.8)
[2021-09-16 04:53] LABS: Hematocrit 22.5 % (41.0-53.0); Hemoglobin 7.5 g/dL (13.5-17.5); Lymphocytes # (auto) 0.6 10 ^3/uL (0.4-5.4); Lymphocytes % (auto) 5.5 % (10.0-50.0); Mean Corpuscular Hemoglobin 29.9 pg (28.0-32.0); Mean Corpuscular Hgb Conc. 33.4 g/dL (32.0-36.0); Mean Corpuscular Volume 89.4 fL (80.0-100.0); Monocytes # (auto) 0.6 10 ^3/uL (0-1.3); Monocytes % (auto) 4.7 % (0.0-12.0); Neutrophils % (auto) 89.6 % (37.0-80.0); Red Blood Cells 2.51 10^6/uL (4.5-5.90); Red Cell Distribution Width 18.5 % (11.8-14.3)
[2021-09-16 05:12] LABS: Potassium 3.2 mmol/L (3.5-5.1)
[2021-09-16 05:14] LABS: BUN/Creatinine Ratio 7.1
[2021-09-16] MEDS: LEVOTHYROXINE SODIUM 100 MCG TAB PO SCH (06:30)
[2021-09-16] MEDS: LEVOTHYROXINE SODIUM 25 MCG TAB PO SCH (06:30)
[2021-09-16] MEDS: DEXTROSE 10% 1,000 ML IV SCH (06:31)
[2021-09-16] MEDS: PIPERACILLIN-TAZOB 2.25GM 50 ML IV SCH ×2 (08:22→16:26)
[2021-09-16] MEDS: NOREPINEPHRINE 8 MG/250ML KIT 250 ML IV SCH (09:15)
[2021-09-16] MEDS: HYDROCORTISONE SOD SUCC 100 MG/2ML INJ VIAL IV SCH ×2 (09:16→22:17)
[2021-09-16] MEDS: FAMOTIDINE (10MG/ML) 2ML VL IV SCH (09:16)
[2021-09-16] MEDS ORDERED: LABETALOL HCL 5 MG/ML 4ML SYRINGE IV PRN (10:30)
[2021-09-16] MEDS: POTASSIUM CHL 20MEQ/100ML 100 ML IV SCH ×2 (10:45→12:38)
[2021-09-16] MEDS: VASOPRESSIN 50 UNITS in D5W 5% 247.5 ML IV SCH (13:00)
[2021-09-16] MEDS: fentaNYL Drip 2500mCg/250mlNS 250 ML IV SCH (15:00)
[2021-09-16] MEDS: MIDAZOLAM DRIP 50 mg/50mL 50 ML IV SCH (15:45)
[2021-09-16] MEDS: ATORVASTATIN 20 MG TAB PO SCH (22:17)
[2021-09-17] VITALS (45 sets, daily range): BP systolic 137–176; BP diastolic 63–91
[2021-09-17] MEDS: PIPERACILLIN-TAZOB 2.25GM 50 ML IV SCH ×3 (00:03→17:30)
[2021-09-17] MEDS: hydrALAZINE HCL 20 MG/ML VL IV PRN (00:14)
[2021-09-17] MEDS: InsuLIN REG 1unit/0.01ml Soln (100units/ml) SC SCH ×5 (04:20→20:00)
[2021-09-17] MEDS: ACCU-CHEK COMFORT CURVE STRIP VI SCH ×5 (04:20→20:10)
[2021-09-17 05:02] LABS: Basophils # (auto) 0.1 10 ^3/uL (0-0.2); Eosinophils # (auto) 0 10 ^3/uL (0-0.8); Hemoglobin 7.2 g/dL (13.5-17.5); Lymphocytes # (auto) 0.8 10 ^3/uL (0.4-5.4)
[2021-09-17 05:03] LABS: Basophils % (auto) 0.6 % (0.0-2.0); Eosinophils % (auto) 0.3 % (0.0-7.0); Hematocrit 21.6 % (41.0-53.0); Mean Corpuscular Hgb Conc. 33.4 g/dL (32.0-36.0); Monocytes # (auto) 0.6 10 ^3/uL (0-1.3); Monocytes % (auto) 4.2 % (0.0-12.0); Neutrophils # (auto) 11.6 10 ^3/uL (1.6-8.6); Neutrophils % (auto) 88.9 % (37.0-80.0); Nucleated Red Blood Cells % 0.1 %; Red Cell Distribution Width 19.2 % (11.8-14.3); White Blood Cell 13.1 10^3/uL (4.4-10.8)
[2021-09-17 05:19] LABS: Albumin 1.9 g/dL (3.4-5.0); BUN/Creatinine Ratio 7.4; Calcium 8.2 mg/dL (8.5-10.1); Potassium 3.7 mmol/L (3.5-5.1)
[2021-09-17 05:22] LABS: Total Protein 5.8 g/dL (6.4-8.2)
[2021-09-17] MEDS ORDERED: SODIUM CHL 0.9% 1000 ML BAG XX ONE (07:00)
[2021-09-17] MEDS: LEVOTHYROXINE SODIUM 100 MCG TAB PO SCH (07:39)
[2021-09-17] MEDS: LEVOTHYROXINE SODIUM 25 MCG TAB PO SCH (07:39)
[2021-09-17] MEDS: HYDROCORTISONE SOD SUCC 100 MG/2ML INJ VIAL IV SCH ×2 (09:05→22:08)
[2021-09-17] MEDS: NOREPINEPHRINE 8 MG/250ML KIT 250 ML IV SCH (09:15)
[2021-09-17] MEDS ORDERED: ALBUMIN 25% 100 ML IV PRN (09:45)
[2021-09-17] MEDS: DEXTROSE 10% 1,000 ML IV SCH (12:00)
[2021-09-17] MEDS: fentaNYL Drip 2500mCg/250mlNS 250 ML IV SCH (15:00)
[2021-09-17] MEDS: MIDAZOLAM DRIP 50 mg/50mL 50 ML IV SCH (15:45)
[2021-09-17] MEDS: PROPOFOL 100 ML IV SCH (15:45)
[2021-09-17] MEDS ORDERED: VANCOMYCIN 1GM/250ML 250 ML IV ONE (16:00)
[2021-09-17] MEDS ORDERED: EPOETIN ALFA-EPBX 10,000 UNIT/1ML VIAL SC ONE (21:00)
[2021-09-18] VITALS (24 sets, daily range): BP systolic 126–158; BP diastolic 57–93
[2021-09-18] MEDS: ACCU-CHEK COMFORT CURVE STRIP VI SCH ×6 (00:05→20:51)
[2021-09-18] MEDS: InsuLIN REG 1unit/0.01ml Soln (100units/ml) SC SCH ×6 (00:05→20:51)
[2021-09-18] MEDS: PIPERACILLIN-TAZOB 2.25GM 50 ML IV SCH ×3 (00:43→19:17)
[2021-09-18 04:31] LABS: Basophils # (auto) 0 10 ^3/uL (0-0.2); Eosinophils # (auto) 0 10 ^3/uL (0-0.8); Mean Corpuscular Hgb Conc. 33.3 g/dL (32.0-36.0); Monocytes # (auto) 0.5 10 ^3/uL (0-1.3)
[2021-09-18 04:33] LABS: Basophils % (auto) 0.1 % (0.0-2.0); Eosinophils % (auto) 0.1 % (0.0-7.0); Hematocrit 21.9 % (41.0-53.0); Hemoglobin 7.3 g/dL (13.5-17.5); Lymphocytes # (auto) 0.8 10 ^3/uL (0.4-5.4); Lymphocytes % (auto) 7.3 % (10.0-50.0); Mean Corpuscular Hemoglobin 30.1 pg (28.0-32.0); Mean Corpuscular Volume 90.4 fL (80.0-100.0); Monocytes % (auto) 4.4 % (0.0-12.0); Neutrophils # (auto) 9.3 10 ^3/uL (1.6-8.6); Neutrophils % (auto) 88.1 % (37.0-80.0); Red Blood Cells 2.43 10^6/uL (4.5-5.90); Red Cell Distribution Width 19.6 % (11.8-14.3); White Blood Cell 10.6 10^3/uL (4.4-10.8)
[2021-09-18 04:53] LABS: Potassium 3.3 mmol/L (3.5-5.1)
[2021-09-18 04:58] LABS: Calcium 8.3 mg/dL (8.5-10.1)
[2021-09-18] MEDS: DEXTROSE 10% 1,000 ML IV SCH (06:14)
[2021-09-18] MEDS: LEVOTHYROXINE SODIUM 100 MCG TAB PO SCH (07:00)
[2021-09-18] MEDS: LEVOTHYROXINE SODIUM 25 MCG TAB PO SCH (07:00)
[2021-09-18] MEDS: FAMOTIDINE (10MG/ML) 2ML VL IV SCH (09:51)
[2021-09-18] MEDS: HYDROCORTISONE SOD SUCC 100 MG/2ML INJ VIAL IV SCH ×2 (09:51→22:52)
[2021-09-18] MEDS: POTASSIUM CHL 20MEQ/100ML 100 ML IV SCH ×2 (09:52→12:00)
[2021-09-18] MEDS ORDERED: AMIODARONE HCL 150 MG in D5W 5% 100 ML IV ONE (22:30)
[2021-09-18] MEDS ORDERED: AMIODARONE 450mg/250ml AE 250 ML IV ONE (22:32)
[2021-09-18] MEDS ORDERED: AMIODARONE HCL (50 MG/ ML) 3 ML VIAL IV ONE (22:32)
[2021-09-18] MEDS ORDERED: AMIODARONE 450mg/250ml AE 250 ML IV SCH (22:45)
[2021-09-19] VITALS (54 sets, daily range): BP systolic 108–164; BP diastolic 66–108
[2021-09-19] MEDS: ACCU-CHEK COMFORT CURVE STRIP VI SCH ×7 (00:50→23:35)
[2021-09-19] MEDS: InsuLIN REG 1unit/0.01ml Soln (100units/ml) SC SCH ×7 (00:50→23:39)
[2021-09-19] MEDS: PIPERACILLIN-TAZOB 2.25GM 50 ML IV SCH ×4 (02:02→23:34)
[2021-09-19 04:19] LABS: Eosinophils # (auto) 0 10 ^3/uL (0-0.8); Eosinophils % (auto) 0.1 % (0.0-7.0); Lymphocytes # (auto) 1.2 10 ^3/uL (0.4-5.4); Nucleated Red Blood Cells % 0.1 %
[2021-09-19 04:21] LABS: Basophils # (auto) 0.1 10 ^3/uL (0-0.2); Basophils % (auto) 0.6 % (0.0-2.0); Hematocrit 20.3 % (41.0-53.0); Mean Corpuscular Hemoglobin 29.9 pg (28.0-32.0); Mean Corpuscular Hgb Conc. 32.2 g/dL (32.0-36.0); Mean Corpuscular Volume 92.8 fL (80.0-100.0); Monocytes # (auto) 0.7 10 ^3/uL (0-1.3); Monocytes % (auto) 5.8 % (0.0-12.0); Neutrophils # (auto) 9.8 10 ^3/uL (1.6-8.6); Neutrophils % (auto) 83.5 % (37.0-80.0); Red Blood Cells 2.19 10^6/uL (4.5-5.90); Red Cell Distribution Width 23.3 % (11.8-14.3); White Blood Cell 11.7 10^3/uL (4.4-10.8)
[2021-09-19 04:23] LABS: Hemoglobin 6.5 g/dL (13.5-17.5)
[2021-09-19 04:36] LABS: BUN/Creatinine Ratio 7.7; Calcium 8.3 mg/dL (8.5-10.1)
[2021-09-19] MEDS: AMIODARONE 450mg/250ml AE 250 ML IV SCH ×3 (05:50→22:54)
[2021-09-19] MEDS: LEVOTHYROXINE SODIUM 100 MCG TAB PO SCH (06:34)
[2021-09-19] MEDS: LEVOTHYROXINE SODIUM 25 MCG TAB PO SCH (06:34)
[2021-09-19] MEDS: DEXTROSE 10% 1,000 ML IV SCH (08:22)
[2021-09-19] MEDS: HYDROCORTISONE SOD SUCC 100 MG/2ML INJ VIAL IV SCH ×2 (09:32→21:04)
[2021-09-19] MEDS ORDERED: SODIUM CHL 0.9% 1000 ML BAG XX ONE (11:45)
[2021-09-19] MEDS: DEXTROSE (50%) 50ML SYRG IV PRN (12:27)
[2021-09-19] MEDS ORDERED: PANTOPRAZOLE 40 MG/10 ML VIAL INJ IV ONE (12:30)
[2021-09-19] MEDS ORDERED: EPOETIN ALFA-EPBX 10,000 UNIT/1ML VIAL SC ONE (21:00)
[2021-09-20] VITALS (7 sets, daily range): BP systolic 124–152; BP diastolic 72–99
[2021-09-20] MEDS: ACCU-CHEK COMFORT CURVE STRIP VI SCH ×5 (03:09→21:42)
[2021-09-20] MEDS: InsuLIN REG 1unit/0.01ml Soln (100units/ml) SC SCH ×5 (03:10→21:35)
[2021-09-20] MEDS: LEVOTHYROXINE SODIUM 25 MCG TAB PO SCH (06:49)
[2021-09-20] MEDS: LEVOTHYROXINE SODIUM 100 MCG TAB PO SCH (06:49)
[2021-09-20] MEDS: PIPERACILLIN-TAZOB 2.25GM 50 ML IV SCH ×2 (08:20→18:13)
[2021-09-20] MEDS: PANTOPRAZOLE 40 MG/10 ML VIAL INJ IV SCH (08:20)
[2021-09-20] MEDS: HYDROCORTISONE SOD SUCC 100 MG/2ML INJ VIAL IV SCH ×2 (08:20→21:42)
[2021-09-20 10:18] LABS: Basophils # (auto) 0 10 ^3/uL (0-0.2); Basophils % (auto) 0.3 % (0.0-2.0); Eosinophils # (auto) 0 10 ^3/uL (0-0.8); Eosinophils % (auto) 0.1 % (0.0-7.0); Hematocrit 26.6 % (41.0-53.0); Hemoglobin 8.8 g/dL (13.5-17.5); Lymphocytes # (auto) 1.2 10 ^3/uL (0.4-5.4); Lymphocytes % (auto) 10.3 % (10.0-50.0); Mean Corpuscular Hemoglobin 30.6 pg (28.0-32.0); Mean Corpuscular Hgb Conc. 33.1 g/dL (32.0-36.0); Mean Corpuscular Volume 92.4 fL (80.0-100.0); Monocytes # (auto) 1.1 10 ^3/uL (0-1.3); Monocytes % (auto) 10.1 % (0.0-12.0); Neutrophils # (auto) 8.9 10 ^3/uL (1.6-8.6); Neutrophils % (auto) 79.2 % (37.0-80.0); Nucleated Red Blood Cells % 0.8 %; Red Blood Cells 2.88 10^6/uL (4.5-5.90); Red Cell Distribution Width 18.8 % (11.8-14.3); White Blood Cell 11.3 10^3/uL (4.4-10.8)
[2021-09-20 10:37] LABS: Potassium 3.6 mmol/L (3.5-5.1)
[2021-09-20 10:43] LABS: BUN/Creatinine Ratio 7.6; Calcium 8.6 mg/dL (8.5-10.1)
[2021-09-20] MEDS: DEXTROSE 10% 1,000 ML IV SCH (12:00)
[2021-09-20] MEDS: AMIODARONE 450mg/250ml AE 250 ML IV SCH ×2 (18:14→19:09)
[2021-09-21] MEDS: ACCU-CHEK COMFORT CURVE STRIP VI SCH ×6 (00:37→16:47)
[2021-09-21] MEDS: InsuLIN REG 1unit/0.01ml Soln (100units/ml) SC SCH ×6 (00:37→16:47)
[2021-09-21] MEDS: PIPERACILLIN-TAZOB 2.25GM 50 ML IV SCH ×3 (00:37→16:47)
[2021-09-21 05:00] VITALS: BP 138/85
[2021-09-21] MEDS: LEVOTHYROXINE SODIUM 25 MCG TAB PO SCH (06:21)
[2021-09-21] MEDS: LEVOTHYROXINE SODIUM 100 MCG TAB PO SCH (06:21)
[2021-09-21 09:00] VITALS: BP 125/93
[2021-09-21] MEDS: PANTOPRAZOLE 40 MG/10 ML VIAL INJ IV SCH (09:50)
[2021-09-21] MEDS: HYDROCORTISONE SOD SUCC 100 MG/2ML INJ VIAL IV SCH (09:50)
[2021-09-21] MEDS: DEXTROSE 10% 1,000 ML IV SCH (09:50)
[2021-09-21 12:00] VITALS: BP 130/91
[2021-09-21] MEDS ORDERED: DEXTROSE (50%) 50ML SYRG IV ONE (13:00)
[2021-09-21] MEDS: AMIODARONE 450mg/250ml AE 250 ML IV SCH (16:56)
[2021-09-21 17:00] VITALS: BP 135/95
[2021-09-21 18:46] LABS: Basophils # (auto) 0.1 10 ^3/uL (0-0.2); Basophils % (auto) 0.7 % (0.0-2.0); Eosinophils # (auto) 0 10 ^3/uL (0-0.8); Hematocrit 28.5 % (41.0-53.0); Hemoglobin 9.4 g/dL (13.5-17.5); Lymphocytes # (auto) 1.1 10 ^3/uL (0.4-5.4); Lymphocytes % (auto) 10.3 % (10.0-50.0); Mean Corpuscular Hemoglobin 30.7 pg (28.0-32.0); Mean Corpuscular Volume 92.8 fL (80.0-100.0); Monocytes % (auto) 9.1 % (0.0-12.0); Neutrophils # (auto) 8.5 10 ^3/uL (1.6-8.6); Neutrophils % (auto) 79.9 % (37.0-80.0); Nucleated Red Blood Cells % 2.5 %; Red Blood Cells 3.07 10^6/uL (4.5-5.90); White Blood Cell 10.6 10^3/uL (4.4-10.8)
[2021-09-21 19:01] LABS: Calcium 9.2 mg/dL (8.5-10.1); Potassium 4.2 mmol/L (3.5-5.1)
[2021-09-21 19:06] LABS: BUN/Creatinine Ratio 9.4; Red Cell Distribution Width 22.7 % (11.8-14.3)
[2021-09-21 22:00] VITALS: BP 136/105
[2021-09-22] MEDS: HYDROCORTISONE SOD SUCC 100 MG/2ML INJ VIAL IV SCH ×3 (00:47→22:22)
[2021-09-22] MEDS: PIPERACILLIN-TAZOB 2.25GM 50 ML IV SCH ×3 (00:47→16:38)
[2021-09-22] MEDS: ACCU-CHEK COMFORT CURVE STRIP VI SCH ×6 (00:47→19:45)
[2021-09-22] MEDS: InsuLIN REG 1unit/0.01ml Soln (100units/ml) SC SCH ×7 (04:00→23:54)
[2021-09-22 05:30] VITALS: BP 153/89
[2021-09-22] MEDS ORDERED: SODIUM BICARBONATE 8.4 % INJ 50ML VIAL IV ONE (06:30)
[2021-09-22] MEDS: LEVOTHYROXINE SODIUM 100 MCG TAB PO SCH (06:37)
[2021-09-22] MEDS: LEVOTHYROXINE SODIUM 25 MCG TAB PO SCH (06:37)
[2021-09-22] MEDS: AMIODARONE 450mg/250ml AE 250 ML IV SCH (08:54)
[2021-09-22 09:00] VITALS: BP 140/68
[2021-09-22] MEDS: PANTOPRAZOLE 40 MG/10 ML VIAL INJ IV SCH (09:34)
[2021-09-22 12:00] VITALS: BP 135/81
[2021-09-22] MEDS: DEXTROSE 10% 1,000 ML IV SCH (12:00)
[2021-09-22] MEDS ORDERED: VANCOMYCIN 500 MG in D5W 5% 100 ML IV ONE (12:00)
[2021-09-22] MEDS: Ensure HIGH Protein Chocolate 8oz Bottle NG SCH ×2 (13:11→17:44)
[2021-09-22 16:00] VITALS: BP 127/86
[2021-09-22 22:00] VITALS: BP 140/97
[2021-09-23] MEDS: PIPERACILLIN-TAZOB 2.25GM 50 ML IV SCH ×2 (00:07→08:22)
[2021-09-23] MEDS: ACCU-CHEK COMFORT CURVE STRIP VI SCH ×6 (00:07→20:19)
[2021-09-23] MEDS: AMIODARONE 450mg/250ml AE 250 ML IV SCH ×2 (00:08→17:39)
[2021-09-23] MEDS: InsuLIN REG 1unit/0.01ml Soln (100units/ml) SC SCH ×5 (03:34→20:00)
[2021-09-23 05:00] VITALS: BP 143/91
[2021-09-23] MEDS: LEVOTHYROXINE SODIUM 25 MCG TAB PO SCH (06:58)
[2021-09-23] MEDS: LEVOTHYROXINE SODIUM 100 MCG TAB PO SCH (06:59)
[2021-09-23] MEDS ORDERED: SODIUM CHL 0.9% 1000 ML BAG XX ONE ×2 (07:00)
[2021-09-23 08:00] VITALS: BP 159/97
[2021-09-23] MEDS: Ensure HIGH Protein Chocolate 8oz Bottle NG SCH ×2 (08:22→12:00)
[2021-09-23] MEDS: PANTOPRAZOLE 40 MG/10 ML VIAL INJ IV SCH (11:25)
[2021-09-23] MEDS: HYDROCORTISONE SOD SUCC 100 MG/2ML INJ VIAL IV SCH ×2 (11:25→23:05)
[2021-09-23 12:00] VITALS: BP 137/82
[2021-09-23] MEDS: DEXTROSE 10% 1,000 ML IV SCH (12:00)
[2021-09-23] MEDS ORDERED: Nepro With Carb Steady 1 Liter Bottle GT SCH (12:45)
[2021-09-23 15:38] LABS: Hematocrit 24.7 % (41.0-53.0); Hemoglobin 8.6 g/dL (13.5-17.5)
[2021-09-23 15:55] LABS: Calcium 8.4 mg/dL (8.5-10.1)
[2021-09-23 15:58] LABS: Albumin 1.9 g/dL (3.4-5.0); BUN/Creatinine Ratio 12.1
[2021-09-23 16:00] VITALS: BP 182/84
[2021-09-23 16:04] LABS: Total Protein 5.5 g/dL (6.4-8.2)
[2021-09-23] MEDS ORDERED: EPOETIN ALFA-EPBX 10,000 UNIT/1ML VIAL SC ONE ×2 (21:00)
[2021-09-23 22:00] VITALS: BP 122/97
[2021-09-23] MEDS: AMIODARONE HCL 200 MG TAB NG SCH (23:06)
[2021-09-24] VITALS (11 sets, daily range): BP systolic 100–137; BP diastolic 55–99
[2021-09-24] MEDS: DEXTROSE 10% 1,000 ML IV SCH (01:36)
[2021-09-24 01:44] LABS: Hematocrit 19.3 % (41.0-53.0)
[2021-09-24 01:55] LABS: Hemoglobin 6.7 g/dL (13.5-17.5)
[2021-09-24] MEDS: InsuLIN REG 1unit/0.01ml Soln (100units/ml) SC SCH ×6 (04:00→20:00)
[2021-09-24] MEDS: ACCU-CHEK COMFORT CURVE STRIP VI SCH ×6 (04:00→20:28)
[2021-09-24] MEDS: LEVOTHYROXINE SODIUM 100 MCG TAB PO SCH (07:16)
[2021-09-24] MEDS: LEVOTHYROXINE SODIUM 25 MCG TAB PO SCH (07:17)
[2021-09-24] MEDS ORDERED: GOLYTELY 4L KIT PO ONE (09:30)
[2021-09-24] MEDS ORDERED: SODIUM CHL 0.9% 1000 ML BAG XX ONE (10:00)
[2021-09-24] MEDS: PANTOPRAZOLE 40 MG/10 ML VIAL INJ IV SCH (10:22)
[2021-09-24] MEDS: HYDROCORTISONE SOD SUCC 100 MG/2ML INJ VIAL IV SCH ×2 (10:22→22:00)
[2021-09-24] MEDS: AMIODARONE HCL 200 MG TAB NG SCH ×2 (10:23→22:00)
[2021-09-24 10:27] LABS: Hematocrit 15.6 % (41.0-53.0); Mean Corpuscular Hemoglobin 31.1 pg (28.0-32.0); Mean Corpuscular Hgb Conc. 34.8 g/dL (32.0-36.0); Mean Corpuscular Volume 89.3 fL (80.0-100.0); Red Blood Cells 1.75 10^6/uL (4.5-5.90); White Blood Cell 11.1 10^3/uL (4.4-10.8)
[2021-09-24 10:29] LABS: Albumin 1.5 g/dL (3.4-5.0)
[2021-09-24 10:33] LABS: BUN/Creatinine Ratio 10.7; Bilirubin, Total 3.6 mg/dL (0.2-1.0); Total Protein 4.9 g/dL (6.4-8.2)
[2021-09-24 10:59] LABS: Red Cell Distribution Width 20.2 % (11.8-14.3)
[2021-09-24 11:08] LABS: Hemoglobin 5.4 g/dL (13.5-17.5)
[2021-09-24 11:09] LABS: Basophils % (manual) 0 (0.0-2.0); Blast Cells 0; Eosinophils % (manual) 0 (0-7); Metamyelocytes % 0; Myelocytes % 0; Promyelocytes % 0; Reactive Lymphocytes 0
[2021-09-24] MEDS ORDERED: VANCOMYCIN PER PHARMACY 0 MG IV SCH (11:45)
[2021-09-24] MEDS ORDERED: LABETALOL HCL 5 MG/ML 4ML SYRINGE IV PRN (11:45)
[2021-09-24] MEDS ORDERED: CLINIMIX PER PHARMACY 0 ML IV SCH (12:00)
[2021-09-24] MEDS ORDERED: VANCOMYCIN 1GM/250ML 250 ML IV ONE (13:00)
[2021-09-24 13:35] LABS: Band Neutrophils % (manual) 3; Lymphocytes % (manual) 13 (10.0-50.0); Monocytes % (manual) 3 (0-12)
[2021-09-24 19:55] LABS: Basophils # (auto) 0 10 ^3/uL (0-0.2); Basophils % (auto) 0.4 % (0.0-2.0); Eosinophils # (auto) 0 10 ^3/uL (0-0.8); Eosinophils % (auto) 0.2 % (0.0-7.0); Hematocrit 21.3 % (41.0-53.0); Hemoglobin 7.5 g/dL (13.5-17.5); Lymphocytes # (auto) 1.2 10 ^3/uL (0.4-5.4); Lymphocytes % (auto) 11.6 % (10.0-50.0); Mean Corpuscular Hemoglobin 30.2 pg (28.0-32.0); Mean Corpuscular Hgb Conc. 35.2 g/dL (32.0-36.0); Mean Corpuscular Volume 85.8 fL (80.0-100.0); Monocytes # (auto) 0.5 10 ^3/uL (0-1.3); Monocytes % (auto) 4.5 % (0.0-12.0); Neutrophils # (auto) 8.8 10 ^3/uL (1.6-8.6); Neutrophils % (auto) 83.3 % (37.0-80.0); Red Blood Cells 2.48 10^6/uL (4.5-5.90); Red Cell Distribution Width 15.7 % (11.8-14.3); White Blood Cell 10.5 10^3/uL (4.4-10.8)
[2021-09-24] MEDS ORDERED: AMINO ACID INFUSION IN D10W 1,000 ML IV NR (20:00)
[2021-09-24] MEDS ORDERED: EPOETIN ALFA-EPBX 10,000 UNIT/1ML VIAL SC ONE (21:00)
[2021-09-24 21:04] LABS: Phosphorus 2.4 mg/dL (2.5-4.90)
[2021-09-24] MEDS ORDERED: POTASSIUM PHOSPHATE 22 MEQ in SODIUM CHL 0.9% 100 ML IV ONE (22:00)
[2021-09-25] VITALS (11 sets, daily range): BP systolic 120–151; BP diastolic 74–97
[2021-09-25] MEDS: InsuLIN REG 1unit/0.01ml Soln (100units/ml) SC SCH ×7 (00:30→23:44)
[2021-09-25] MEDS: DEXTROSE (50%) 50ML SYRG IV PRN (00:42)
[2021-09-25] MEDS: ACCU-CHEK COMFORT CURVE STRIP VI SCH ×7 (04:00→23:44)
[2021-09-25 06:02] LABS: Basophils # (auto) 0 10 ^3/uL (0-0.2); Eosinophils # (auto) 0 10 ^3/uL (0-0.8); Eosinophils % (auto) 0.1 % (0.0-7.0); Hematocrit 20.8 % (41.0-53.0); Hemoglobin 7.3 g/dL (13.5-17.5); Lymphocytes # (auto) 0.4 10 ^3/uL (0.4-5.4); Lymphocytes % (auto) 4.3 % (10.0-50.0); Mean Corpuscular Hemoglobin 30.4 pg (28.0-32.0); Mean Corpuscular Hgb Conc. 34.9 g/dL (32.0-36.0); Monocytes # (auto) 0.4 10 ^3/uL (0-1.3); Monocytes % (auto) 4.3 % (0.0-12.0); Neutrophils # (auto) 9.4 10 ^3/uL (1.6-8.6); Neutrophils % (auto) 91.3 % (37.0-80.0); Red Blood Cells 2.39 10^6/uL (4.5-5.90); Red Cell Distribution Width 16.6 % (11.8-14.3); White Blood Cell 10.3 10^3/uL (4.4-10.8)
[2021-09-25 06:07] LABS: Nucleated Red Blood Cells % 3.1 %
[2021-09-25 06:21] LABS: INR 1.88 (0.9-1.15)
[2021-09-25 06:28] LABS: Albumin 1.8 g/dL (3.4-5.0); Calcium 7.8 mg/dL (8.5-10.1); Magnesium 2.2 mg/dL (1.6-2.6)
[2021-09-25 06:34] LABS: BUN/Creatinine Ratio 9.6; Bilirubin, Total 3.6 mg/dL (0.2-1.0); Phosphorus 2.2 mg/dL (2.5-4.90); Pre Albumin 13.6 mg/dL (20.0-40.0); Total Protein 5.1 g/dL (6.4-8.2)
[2021-09-25] MEDS: LEVOTHYROXINE SODIUM 100 MCG TAB PO SCH (06:47)
[2021-09-25] MEDS: LEVOTHYROXINE SODIUM 25 MCG TAB PO SCH (06:48)
[2021-09-25] MEDS ORDERED: POTASSIUM PHOSPHATE 44 MEQ in D5W 5% 250 ML IV ONE (09:30)
[2021-09-25] MEDS: PANTOPRAZOLE 40 MG/10 ML VIAL INJ IV SCH (10:28)
[2021-09-25] MEDS: AMIODARONE HCL 200 MG TAB NG SCH ×2 (10:29→22:40)
[2021-09-25] MEDS: HYDROCORTISONE SOD SUCC 100 MG/2ML INJ VIAL IV SCH ×2 (10:29→22:40)
[2021-09-25] MEDS: DEXTROSE 10% 1,000 ML IV SCH (12:17)
[2021-09-25] MEDS ORDERED: LEVOTHYROXINE SODIUM 100 MCG/5 ML INJ IV ONE (14:30)
[2021-09-25] MEDS ORDERED: PHYTONADIONE (VIT K)10 MG/ML 1ML VIAL SUBCUT ONE (14:30)
[2021-09-25] MEDS ORDERED: phytonadione 10 MG in SODIUM CHL 0.9% 50 ML IV ONE (15:00)
[2021-09-25] MEDS ORDERED: AMINO ACID INFUSION IN D10W 1,000 ML IV NR (20:00)
[2021-09-26] VITALS (15 sets, daily range): BP systolic 128–162; BP diastolic 74–99
[2021-09-26] MEDS: InsuLIN REG 1unit/0.01ml Soln (100units/ml) SC SCH ×5 (04:35→19:58)
[2021-09-26] MEDS: ACCU-CHEK COMFORT CURVE STRIP VI SCH ×5 (04:35→19:58)
[2021-09-26 06:00] LABS: Basophils # (auto) 0 10 ^3/uL (0-0.2); Eosinophils # (auto) 0 10 ^3/uL (0-0.8); Mean Corpuscular Volume 87.9 fL (80.0-100.0); Red Cell Distribution Width 16.3 % (11.8-14.3)
[2021-09-26 06:04] LABS: Basophils % (auto) 0.2 % (0.0-2.0); Hematocrit 17.1 % (41.0-53.0); Lymphocytes # (auto) 0.7 10 ^3/uL (0.4-5.4); Mean Corpuscular Hemoglobin 31.1 pg (28.0-32.0); Mean Corpuscular Hgb Conc. 35.4 g/dL (32.0-36.0); Monocytes # (auto) 0.6 10 ^3/uL (0-1.3); Monocytes % (auto) 5.2 % (0.0-12.0); Neutrophils # (auto) 10.4 10 ^3/uL (1.6-8.6); Neutrophils % (auto) 88.6 % (37.0-80.0); Nucleated Red Blood Cells % 3.3 %; Red Blood Cells 1.94 10^6/uL (4.5-5.90); White Blood Cell 11.8 10^3/uL (4.4-10.8)
[2021-09-26 06:19] LABS: Calcium 7.3 mg/dL (8.5-10.1); Potassium 3.1 mmol/L (3.5-5.1)
[2021-09-26 06:25] LABS: Albumin 1.7 g/dL (3.4-5.0); BUN/Creatinine Ratio 10.9; Magnesium 2.2 mg/dL (1.6-2.6); Phosphorus 3.8 mg/dL (2.5-4.90); Total Protein 4.8 g/dL (6.4-8.2)
[2021-09-26 06:27] LABS: INR 1.54 (0.9-1.15); Partial Thromboplastin Time 38.4 sec (23.6-33.0)
[2021-09-26] MEDS: PANTOPRAZOLE 40 MG/10 ML VIAL INJ IV SCH (10:00)
[2021-09-26] MEDS: AMIODARONE HCL 200 MG TAB NG SCH ×2 (10:00→22:23)
[2021-09-26] MEDS: LEVOTHYROXINE SODIUM 100 MCG/5 ML INJ IV SCH (10:00)
[2021-09-26] MEDS: HYDROCORTISONE SOD SUCC 100 MG/2ML INJ VIAL IV SCH ×2 (10:00→22:23)
[2021-09-26] MEDS ORDERED: GOLYTELY 4L KIT PO ONE (10:45)
[2021-09-26] MEDS: DEXTROSE 10% 1,000 ML IV SCH ×2 (12:00→16:54)
[2021-09-26] MEDS ORDERED: VANCOMYCIN 1GM/250ML 250 ML IV ONE (14:00)
[2021-09-26] MEDS ORDERED: POTASSIUM CHL 20MEQ/100ML 100 ML IV ONE (14:45)
[2021-09-26] MEDS ORDERED: AMINO ACID INFUSION IN D10W 1,000 ML IV NR (20:00)
[2021-09-27] VITALS (18 sets, daily range): BP systolic 93–151; BP diastolic 61–96
[2021-09-27] MEDS: ACCU-CHEK COMFORT CURVE STRIP VI SCH ×6 (00:08→20:25)
[2021-09-27] MEDS: InsuLIN REG 1unit/0.01ml Soln (100units/ml) SC SCH ×6 (04:00→20:00)
[2021-09-27 06:04] LABS: Basophils # (auto) 0.1 10 ^3/uL (0-0.2); Basophils % (auto) 0.6 % (0.0-2.0); Eosinophils # (auto) 0 10 ^3/uL (0-0.8); Eosinophils % (auto) 0.1 % (0.0-7.0); White Blood Cell 9.7 10^3/uL (4.4-10.8)
[2021-09-27 06:09] LABS: Hematocrit 14.7 % (41.0-53.0); Lymphocytes # (auto) 0.7 10 ^3/uL (0.4-5.4); Lymphocytes % (auto) 7.2 % (10.0-50.0); Mean Corpuscular Hemoglobin 30.4 pg (28.0-32.0); Mean Corpuscular Hgb Conc. 35.6 g/dL (32.0-36.0); Mean Corpuscular Volume 85.5 fL (80.0-100.0); Monocytes # (auto) 0.5 10 ^3/uL (0-1.3); Monocytes % (auto) 5.5 % (0.0-12.0); Neutrophils # (auto) 8.4 10 ^3/uL (1.6-8.6); Neutrophils % (auto) 86.6 % (37.0-80.0); Nucleated Red Blood Cells % 1.4 %; Red Blood Cells 1.72 10^6/uL (4.5-5.90); Red Cell Distribution Width 17.2 % (11.8-14.3)
[2021-09-27 06:28] LABS: INR 1.47 (0.9-1.15); Partial Thromboplastin Time 35.4 sec (23.6-33.0)
[2021-09-27 06:35] LABS: Hemoglobin 5.2 g/dL (13.5-17.5)
[2021-09-27 06:51] LABS: Albumin 1.5 g/dL (3.4-5.0); BUN/Creatinine Ratio 10.2; Bilirubin, Total 2.5 mg/dL (0.2-1.0); Calcium 7.1 mg/dL (8.5-10.1); Magnesium 2.1 mg/dL (1.6-2.6); Phosphorus 2.4 mg/dL (2.5-4.90); Total Protein 4.1 g/dL (6.4-8.2)
[2021-09-27 08:20] LABS: Potassium 2.8 mmol/L (3.5-5.1)
[2021-09-27] MEDS ORDERED: POTASSIUM CHL 20MEQ/100ML 100 ML IV ONE (09:15)
[2021-09-27] MEDS ORDERED: POTASSIUM CHL 20MEQ/100ML 100 ML IV SCH (09:30)
[2021-09-27] MEDS: LEVOTHYROXINE SODIUM 100 MCG/5 ML INJ IV SCH (10:00)
[2021-09-27] MEDS: PANTOPRAZOLE 40 MG/10 ML VIAL INJ IV SCH (10:00)
[2021-09-27] MEDS: HYDROCORTISONE SOD SUCC 100 MG/2ML INJ VIAL IV SCH ×2 (10:03→21:23)
[2021-09-27] MEDS: AMIODARONE HCL 200 MG TAB NG SCH ×2 (10:17→21:24)
[2021-09-27] MEDS ORDERED: POTASSIUM PHOSPHATE 22 MEQ in SODIUM CHL 0.9% 100 ML IV ONE (11:30)
[2021-09-27] MEDS ORDERED: AMINO ACID INFUSION IN D10W 1,000 ML IV NR (20:00)
[2021-09-28] MEDS: ACCU-CHEK COMFORT CURVE STRIP VI SCH ×6 (00:24→20:22)
[2021-09-28] MEDS: DEXTROSE 10% 1,000 ML IV SCH (02:53)
[2021-09-28] MEDS: InsuLIN REG 1unit/0.01ml Soln (100units/ml) SC SCH ×6 (04:00→20:00)
[2021-09-28 05:00] VITALS: BP 151/92
[2021-09-28 05:36] LABS: Basophils # (auto) 0 10 ^3/uL (0-0.2); Eosinophils # (auto) 0 10 ^3/uL (0-0.8); Lymphocytes # (auto) 0.6 10 ^3/uL (0.4-5.4); Monocytes # (auto) 0.6 10 ^3/uL (0-1.3)
[2021-09-28 05:40] LABS: Basophils % (auto) 0.3 % (0.0-2.0); Hematocrit 23.2 % (41.0-53.0); Hemoglobin 8.1 g/dL (13.5-17.5); Lymphocytes % (auto) 5.7 % (10.0-50.0); Mean Corpuscular Hemoglobin 30.9 pg (28.0-32.0); Mean Corpuscular Volume 88.3 fL (80.0-100.0); Monocytes % (auto) 6.4 % (0.0-12.0); Neutrophils # (auto) 8.7 10 ^3/uL (1.6-8.6); Neutrophils % (auto) 87.6 % (37.0-80.0); Nucleated Red Blood Cells % 1.4 %; Red Blood Cells 2.63 10^6/uL (4.5-5.90); Red Cell Distribution Width 16.9 % (11.8-14.3); White Blood Cell 9.9 10^3/uL (4.4-10.8)
[2021-09-28 05:56] LABS: INR 1.32 (0.9-1.15); Partial Thromboplastin Time 32.8 sec (23.6-33.0)
[2021-09-28 06:01] LABS: Albumin 1.9 g/dL (3.4-5.0); BUN/Creatinine Ratio 11.6; Calcium 7.6 mg/dL (8.5-10.1); Magnesium 1.7 mg/dL (1.6-2.6); Potassium 3.2 mmol/L (3.5-5.1)
[2021-09-28 06:03] LABS: Phosphorus 3.4 mg/dL (2.5-4.90)
[2021-09-28 09:00] VITALS: BP 159/91
[2021-09-28] MEDS ORDERED: PHENYLEPHRINE HCL 10 MG/ML VL ONE (09:11)
[2021-09-28] MEDS ORDERED: SODIUM CHLORIDE LOCK 10 ML ONE (09:11)
[2021-09-28] MEDS ORDERED: PROPOFOL 10 MG/ML 20 ML IV ONE (09:11)
[2021-09-28] MEDS ORDERED: LIDOCAINE 2% (LOCAL ANESTH.) PF 5ml SDV ONE (09:11)
[2021-09-28] MEDS ORDERED: MAGNESIUM SULFATE 1GM/100ML 100 ML IV ONE (10:45)
[2021-09-28] MEDS: PANTOPRAZOLE 40 MG/10 ML VIAL INJ IV SCH (10:51)
[2021-09-28] MEDS: LEVOTHYROXINE SODIUM 100 MCG/5 ML INJ IV SCH (10:52)
[2021-09-28] MEDS: AMIODARONE HCL 200 MG TAB NG SCH ×2 (10:54→21:12)
[2021-09-28] MEDS: HYDROCORTISONE SOD SUCC 100 MG/2ML INJ VIAL IV SCH ×2 (10:55→21:12)
[2021-09-28] MEDS ORDERED: IOHEXOL 350 MG/ML 100ML IJ ONE (12:28)
[2021-09-28] MEDS: POTASSIUM CHL 20MEQ/100ML 100 ML IV SCH ×3 (12:39→21:08)
[2021-09-28 13:00] VITALS: BP 145/100
[2021-09-28] MEDS: ACETAMINOPHEN 650 mg PER 20.3 mL UD NG PRN (16:21)
[2021-09-28 17:00] VITALS: BP 145/81
[2021-09-28] MEDS ORDERED: AMINO ACID INFUSION IN D10W 1,000 ML IV NR (20:00)
[2021-09-28] MEDS ORDERED: POTASSIUM CHL 20MEQ/100ML 100 ML IV ONE (21:07)
[2021-09-29] MEDS: InsuLIN REG 1unit/0.01ml Soln (100units/ml) SC SCH ×6 (04:00→20:00)
[2021-09-29] MEDS: ACCU-CHEK COMFORT CURVE STRIP VI SCH ×6 (04:00→20:13)
[2021-09-29 05:00] VITALS: BP 151/100
[2021-09-29 08:00] VITALS: BP 150/90
[2021-09-29 09:38] LABS: Albumin 1.8 g/dL (3.4-5.0); BUN/Creatinine Ratio 12.3; Calcium 7.6 mg/dL (8.5-10.1); Potassium 3.9 mmol/L (3.5-5.1)
[2021-09-29 09:41] LABS: Bilirubin, Total 2.3 mg/dL (0.2-1.0); Phosphorus 3.7 mg/dL (2.5-4.90); Total Protein 5.1 g/dL (6.4-8.2)
[2021-09-29] MEDS: PANTOPRAZOLE 40 MG/10 ML VIAL INJ IV SCH (11:17)
[2021-09-29] MEDS: HYDROCORTISONE SOD SUCC 100 MG/2ML INJ VIAL IV SCH ×2 (11:17→22:20)
[2021-09-29] MEDS: LEVOTHYROXINE SODIUM 100 MCG/5 ML INJ IV SCH (11:18)
[2021-09-29] MEDS: AMIODARONE HCL 200 MG TAB NG SCH ×2 (11:18→22:21)
[2021-09-29 12:00] VITALS: BP 159/100
[2021-09-29] MEDS ORDERED: VANCOMYCIN 1GM/250ML 250 ML IV ONE (15:00)
[2021-09-29] MEDS: DEXTROSE 10% 1,000 ML IV SCH (15:31)
[2021-09-29 16:00] VITALS: BP 160/92
[2021-09-29] MEDS ORDERED: AMINO ACID INFUSION IN D10W 1,000 ML IV NR (20:00)
[2021-09-29 22:00] VITALS: BP 143/78
[2021-09-30] MEDS: ACCU-CHEK COMFORT CURVE STRIP VI SCH ×6 (04:00→20:00)
[2021-09-30] MEDS: InsuLIN REG 1unit/0.01ml Soln (100units/ml) SC SCH ×6 (04:00→20:00)
[2021-09-30 05:00] VITALS: BP 137/71
[2021-09-30 05:54] LABS: Basophils # (auto) 0 10 ^3/uL (0-0.2); Eosinophils # (auto) 0 10 ^3/uL (0-0.8); Lymphocytes # (auto) 0.3 10 ^3/uL (0.4-5.4)
[2021-09-30 05:56] LABS: Basophils % (auto) 0.3 % (0.0-2.0); Hematocrit 21.5 % (41.0-53.0); Hemoglobin 7.4 g/dL (13.5-17.5); Lymphocytes % (auto) 3.6 % (10.0-50.0); Mean Corpuscular Hemoglobin 31.9 pg (28.0-32.0); Mean Corpuscular Hgb Conc. 34.5 g/dL (32.0-36.0); Mean Corpuscular Volume 92.5 fL (80.0-100.0); Monocytes # (auto) 0.7 10 ^3/uL (0-1.3); Monocytes % (auto) 8.3 % (0.0-12.0); Neutrophils # (auto) 7.3 10 ^3/uL (1.6-8.6); Neutrophils % (auto) 87.8 % (37.0-80.0); Nucleated Red Blood Cells % 0.5 %; Red Blood Cells 2.33 10^6/uL (4.5-5.90); Red Cell Distribution Width 16.3 % (11.8-14.3); White Blood Cell 8.3 10^3/uL (4.4-10.8)
[2021-09-30 06:24] LABS: Potassium 3.5 mmol/L (3.5-5.1)
[2021-09-30 06:31] LABS: BUN/Creatinine Ratio 12.3; Calcium 8.1 mg/dL (8.5-10.1)
[2021-09-30 09:17] LABS: Albumin 1.9 g/dL (3.4-5.0); Bilirubin, Direct 1.7 mg/dL (0-0.2); Magnesium 1.7 mg/dL (1.6-2.6)
[2021-09-30 09:20] LABS: Bilirubin, Total 2.2 mg/dL (0.2-1.0); Total Protein 5.3 g/dL (6.4-8.2)
[2021-09-30] MEDS: PANTOPRAZOLE 40 MG/10 ML VIAL INJ IV SCH ×2 (09:56→20:47)
[2021-09-30] MEDS: LEVOTHYROXINE SODIUM 100 MCG/5 ML INJ IV SCH (09:56)
[2021-09-30] MEDS: HYDROCORTISONE SOD SUCC 100 MG/2ML INJ VIAL IV SCH ×2 (09:56→20:46)
[2021-09-30] MEDS: AMIODARONE HCL 200 MG TAB NG SCH ×3 (09:57→20:48)
[2021-09-30 12:00] VITALS: BP 163/96
[2021-09-30] MEDS ORDERED: LABETALOL HCL 5 MG/ML 4ML SYRINGE IV PRN (15:00)
[2021-09-30] MEDS ORDERED: ACCU-CHEK COMFORT CURVE STRIP VI ONE (15:00)
[2021-09-30] MEDS ORDERED: ePHEDrine SULFATE 50 MG/ML AMP IV PRN (15:00)
[2021-09-30 16:00] VITALS: BP 157/67
[2021-09-30] MEDS: DEXTROSE 10% 1,000 ML IV SCH (16:57)
[2021-09-30] MEDS: SUCRALFATE 1 GM/10 ML ORAL SUSP NG SCH ×2 (16:59→20:47)
[2021-09-30] MEDS ORDERED: AMINO ACID INFUSION IN D10W 1,000 ML IV NR (20:00)
[2021-09-30 22:00] VITALS: BP 158/82
[2021-10-01] MEDS: InsuLIN REG 1unit/0.01ml Soln (100units/ml) SC SCH ×6 (04:00→20:00)
[2021-10-01] MEDS: ACCU-CHEK COMFORT CURVE STRIP VI SCH ×6 (04:00→20:00)
[2021-10-01 05:00] VITALS: BP 152/99
[2021-10-01 05:43] LABS: Basophils # (auto) 0 10 ^3/uL (0-0.2); Eosinophils # (auto) 0 10 ^3/uL (0-0.8); Hemoglobin 7.4 g/dL (13.5-17.5); Mean Corpuscular Volume 93.6 fL (80.0-100.0); Monocytes # (auto) 0.5 10 ^3/uL (0-1.3)
[2021-10-01 05:45] LABS: Basophils % (auto) 0.3 % (0.0-2.0); Hematocrit 21.7 % (41.0-53.0); Lymphocytes # (auto) 0.4 10 ^3/uL (0.4-5.4); Mean Corpuscular Hemoglobin 31.8 pg (28.0-32.0); Mean Corpuscular Hgb Conc. 33.9 g/dL (32.0-36.0); Monocytes % (auto) 5.9 % (0.0-12.0); Neutrophils # (auto) 8.1 10 ^3/uL (1.6-8.6); Neutrophils % (auto) 89.8 % (37.0-80.0); Nucleated Red Blood Cells % 0.5 %; Red Blood Cells 2.31 10^6/uL (4.5-5.90); Red Cell Distribution Width 16.9 % (11.8-14.3)
[2021-10-01 06:06] LABS: Albumin 1.9 g/dL (3.4-5.0); Calcium 8.1 mg/dL (8.5-10.1); Magnesium 2.2 mg/dL (1.6-2.6); Potassium 3.8 mmol/L (3.5-5.1)
[2021-10-01 06:10] LABS: BUN/Creatinine Ratio 13.9; Phosphorus 3.6 mg/dL (2.5-4.90); Total Protein 5.4 g/dL (6.4-8.2)
[2021-10-01] MEDS: SUCRALFATE 1 GM/10 ML ORAL SUSP NG SCH ×4 (07:00→22:00)
[2021-10-01] MEDS ORDERED: SODIUM CHL 0.9% 1000 ML BAG XX ONE (07:00)
[2021-10-01 09:00] VITALS: BP 140/83
[2021-10-01] MEDS: AMIODARONE HCL 200 MG TAB NG SCH ×2 (10:00→22:00)
[2021-10-01] MEDS: HYDROCORTISONE SOD SUCC 100 MG/2ML INJ VIAL IV SCH ×2 (11:15→22:00)
[2021-10-01] MEDS: LEVOTHYROXINE SODIUM 100 MCG/5 ML INJ IV SCH (11:15)
[2021-10-01] MEDS: PANTOPRAZOLE 40 MG/10 ML VIAL INJ IV SCH ×2 (11:15→22:00)
[2021-10-01] MEDS: DEXTROSE 10% 1,000 ML IV SCH (12:00)
[2021-10-01 13:30] VITALS: BP 146/90
[2021-10-01 17:23] VITALS: BP 146/80
[2021-10-01] MEDS ORDERED: AMINO ACID INFUSION IN D10W 1,000 ML IV NR (20:00)
[2021-10-01] MEDS ORDERED: EPOETIN ALFA-EPBX 10,000 UNIT/1ML VIAL SC ONE (21:00)
[2021-10-01 22:00] VITALS: BP 150/95
[2021-10-02] MEDS: ACCU-CHEK COMFORT CURVE STRIP VI SCH ×3 (04:00→09:00)
[2021-10-02] MEDS: InsuLIN REG 1unit/0.01ml Soln (100units/ml) SC SCH ×3 (04:00→08:00)
[2021-10-02 05:00] VITALS: BP 150/90
[2021-10-02] MEDS: SUCRALFATE 1 GM/10 ML ORAL SUSP NG SCH ×3 (06:29→16:41)
[2021-10-02] MEDS: DEXTROSE 10% 1,000 ML IV SCH (06:35)
[2021-10-02 09:00] VITALS: BP 184/94
[2021-10-02] MEDS: PANTOPRAZOLE 40 MG/10 ML VIAL INJ IV SCH ×2 (10:17→23:11)
[2021-10-02] MEDS: AMIODARONE HCL 200 MG TAB NG SCH (10:18)
[2021-10-02] MEDS: HYDROCORTISONE SOD SUCC 100 MG/2ML INJ VIAL IV SCH (10:18)
[2021-10-02] MEDS: LEVOTHYROXINE SODIUM 100 MCG/5 ML INJ IV SCH (10:18)
[2021-10-02 13:00] VITALS: BP 130/85
[2021-10-02 14:06] LABS: Calcium 8.3 mg/dL (8.5-10.1); Magnesium 2.3 mg/dL (1.6-2.6); Potassium 3.5 mmol/L (3.5-5.1)
[2021-10-02 14:09] LABS: BUN/Creatinine Ratio 13.7; Total Protein 5.5 g/dL (6.4-8.2)
[2021-10-02 14:11] LABS: Eosinophils # (auto) 0 10 ^3/uL (0-0.8); Lymphocytes # (auto) 0.3 10 ^3/uL (0.4-5.4); Monocytes # (auto) 0.6 10 ^3/uL (0-1.3); Nucleated Red Blood Cells % 0.2 %
[2021-10-02 14:13] LABS: Basophils # (auto) 0 10 ^3/uL (0-0.2); Basophils % (auto) 0.1 % (0.0-2.0); Hematocrit 23.5 % (41.0-53.0); Hemoglobin 7.9 g/dL (13.5-17.5); Lymphocytes % (auto) 2.7 % (10.0-50.0); Mean Corpuscular Hemoglobin 32.1 pg (28.0-32.0); Mean Corpuscular Hgb Conc. 33.5 g/dL (32.0-36.0); Mean Corpuscular Volume 95.9 fL (80.0-100.0); Monocytes % (auto) 5.6 % (0.0-12.0); Neutrophils # (auto) 9.6 10 ^3/uL (1.6-8.6); Neutrophils % (auto) 91.6 % (37.0-80.0); Red Blood Cells 2.45 10^6/uL (4.5-5.90); Red Cell Distribution Width 17.4 % (11.8-14.3); White Blood Cell 10.5 10^3/uL (4.4-10.8)
[2021-10-02 17:00] VITALS: BP 146/82
[2021-10-02 22:00] VITALS: BP 136/89
[2021-10-02] MEDS: AMIODARONE HCL 200 MG TAB PO SCH (23:09)
[2021-10-02] MEDS: HYDROCORTISONE 10 MG TAB PO SCH (23:10)
[2021-10-02] MEDS: SUCRALFATE 1 GM/10 ML ORAL SUSP PO SCH (23:11)
[2021-10-03 05:00] VITALS: BP 133/88
[2021-10-03] MEDS: SUCRALFATE 1 GM/10 ML ORAL SUSP PO SCH ×4 (07:00→21:25)
[2021-10-03] MEDS ORDERED: SODIUM CHL 0.9% 1000 ML BAG XX ONE (07:00)
[2021-10-03] MEDS: LEVOTHYROXINE SODIUM 50 MCG TAB PO SCH (07:00)
[2021-10-03 09:04] VITALS: BP 150/78
[2021-10-03] MEDS: HYDROCORTISONE 10 MG TAB PO SCH ×2 (09:53→21:26)
[2021-10-03] MEDS: AMIODARONE HCL 200 MG TAB PO SCH ×2 (09:53→21:25)
[2021-10-03] MEDS: PANTOPRAZOLE 40 MG/10 ML VIAL INJ IV SCH ×2 (09:53→21:27)
[2021-10-03] MEDS: amLODIPine BESYLATE 5 MG TAB PO SCH (09:54)
[2021-10-03 10:51] LABS: Hematocrit 24.4 % (41.0-53.0); Hemoglobin 8.2 g/dL (13.5-17.5)
[2021-10-03 12:43] VITALS: BP 147/75
[2021-10-03 15:49] LABS: Hepatitis B Surface Antibody Positive (Negative)
[2021-10-03 15:51] LABS: Hepatitis C Antibody Negative (Negative)
[2021-10-03 15:53] LABS: Hepatitis A Total Antibody Positive (Negative)
[2021-10-03 16:42] VITALS: BP 132/75
[2021-10-03] MEDS ORDERED: EPOETIN ALFA-EPBX 10,000 UNIT/1ML VIAL SC ONE (21:00)
[2021-10-03 22:04] VITALS: BP 149/91
[2021-10-04 05:00] VITALS: BP 128/75
[2021-10-04] MEDS: SUCRALFATE 1 GM/10 ML ORAL SUSP PO SCH ×4 (06:45→22:12)
[2021-10-04] MEDS: LEVOTHYROXINE SODIUM 50 MCG TAB PO SCH (06:45)
[2021-10-04 09:00] VITALS: BP 130/82
[2021-10-04] MEDS: PANTOPRAZOLE 40 MG/10 ML VIAL INJ IV SCH (09:57)
[2021-10-04] MEDS: AMIODARONE HCL 200 MG TAB PO SCH ×2 (09:59→22:13)
[2021-10-04] MEDS: amLODIPine BESYLATE 5 MG TAB PO SCH (10:03)
[2021-10-04] MEDS: HYDROCORTISONE 10 MG TAB PO SCH ×2 (10:06→22:14)
[2021-10-04 13:00] VITALS: BP 130/81
[2021-10-04 17:00] VITALS: BP 133/73
[2021-10-04] MEDS: ACETAMINOPHEN 650 mg PER 20.3 mL UD NG PRN (18:32)
[2021-10-04] MEDS: PANTOPRAZOLE 40 MG TAB PO SCH (22:13)
[2021-10-05 05:36] VITALS: BP 139/84
[2021-10-05] MEDS ORDERED: SODIUM CHL 0.9% 1000 ML BAG XX ONE (07:00)
[2021-10-05] MEDS: LEVOTHYROXINE SODIUM 50 MCG TAB PO SCH (08:12)
[2021-10-05] MEDS: SUCRALFATE 1 GM/10 ML ORAL SUSP PO SCH ×4 (08:12→22:00)
[2021-10-05 08:34] VITALS: BP 141/71
[2021-10-05] MEDS: PANTOPRAZOLE 40 MG TAB PO SCH ×2 (09:54→22:00)
[2021-10-05] MEDS: AMIODARONE HCL 200 MG TAB PO SCH ×2 (09:54→22:00)
[2021-10-05] MEDS: HYDROCORTISONE 10 MG TAB PO SCH ×2 (09:54→22:00)
[2021-10-05] MEDS: amLODIPine BESYLATE 5 MG TAB PO SCH (09:55)
[2021-10-05 10:58] LABS: Eosinophils # (auto) 0 10 ^3/uL (0-0.8); Eosinophils % (auto) 0.1 % (0.0-7.0); Lymphocytes # (auto) 0.4 10 ^3/uL (0.4-5.4); Nucleated Red Blood Cells % 0.1 %
[2021-10-05 10:59] LABS: Basophils # (auto) 0.1 10 ^3/uL (0-0.2); Basophils % (auto) 0.7 % (0.0-2.0); Hematocrit 24.3 % (41.0-53.0); Hemoglobin 8.2 g/dL (13.5-17.5); Lymphocytes % (auto) 2.6 % (10.0-50.0); Mean Corpuscular Hemoglobin 32.1 pg (28.0-32.0); Mean Corpuscular Hgb Conc. 33.6 g/dL (32.0-36.0); Mean Corpuscular Volume 95.8 fL (80.0-100.0); Monocytes # (auto) 0.5 10 ^3/uL (0-1.3); Monocytes % (auto) 3.4 % (0.0-12.0); Neutrophils # (auto) 14.6 10 ^3/uL (1.6-8.6); Neutrophils % (auto) 93.2 % (37.0-80.0); Red Blood Cells 2.54 10^6/uL (4.5-5.90); White Blood Cell 15.7 10^3/uL (4.4-10.8)
[2021-10-05] MEDS ORDERED: ENOXAPARIN SOD 30 MG/0.3 ML SYRINGE SC ONE (13:15)
[2021-10-05 13:38] VITALS: BP 128/64
[2021-10-05 14:20] LABS: BUN/Creatinine Ratio 10.1
[2021-10-05 16:18] VITALS: BP 141/71
[2021-10-05 16:30] VITALS: BP 127/66
[2021-10-05] MEDS ORDERED: EPOETIN ALFA-EPBX 10,000 UNIT/1ML VIAL SC ONE (21:00)
[2021-10-05 22:00] VITALS: BP 147/73
[2021-10-06] MEDS: ACETAMINOPHEN 650 mg PER 20.3 mL UD PO PRN (02:23)
[2021-10-06 05:00] VITALS: BP 119/63
[2021-10-06] MEDS: LEVOTHYROXINE SODIUM 50 MCG TAB PO SCH (06:27)
[2021-10-06] MEDS: SUCRALFATE 1 GM/10 ML ORAL SUSP PO SCH ×4 (06:27→22:44)
[2021-10-06 09:00] VITALS: BP 122/67
[2021-10-06] MEDS: PANTOPRAZOLE 40 MG TAB PO SCH ×2 (10:33→22:45)
[2021-10-06] MEDS: AMIODARONE HCL 200 MG TAB PO SCH ×2 (10:33→22:46)
[2021-10-06] MEDS: HYDROCORTISONE 10 MG TAB PO SCH ×2 (10:33→22:45)
[2021-10-06] MEDS: amLODIPine BESYLATE 5 MG TAB PO SCH (10:33)
[2021-10-06] MEDS: ENOXAPARIN SOD 30 MG/0.3 ML SYRINGE SC SCH (10:34)
[2021-10-06] MEDS ORDERED: GABAPENTIN 100 MG CAP PO ONE (12:30)
[2021-10-06 13:00] VITALS: BP 126/76
[2021-10-06] MEDS ORDERED: MUPIROCIN 2% OINT 15gm or 22gm TOP ONE (16:30)
[2021-10-06 17:00] VITALS: BP 131/83
[2021-10-06 22:00] VITALS: BP 142/70
[2021-10-06] MEDS: GABAPENTIN 100 MG CAP PO SCH (22:45)
[2021-10-06] MEDS: MUPIROCIN 2% OINT 15gm or 22gm EACHNOSTRI SCH (22:46)
[2021-10-07] MEDS: ACETAMINOPHEN 650 mg PER 20.3 mL UD PO PRN (04:50)
[2021-10-07 05:00] VITALS: BP 143/78
[2021-10-07] MEDS: LEVOTHYROXINE SODIUM 50 MCG TAB PO SCH (05:28)
[2021-10-07] MEDS: SUCRALFATE 1 GM/10 ML ORAL SUSP PO SCH ×3 (06:36→19:07)
[2021-10-07] MEDS ORDERED: SODIUM CHL 0.9% 1000 ML BAG XX ONE (07:30)
[2021-10-07] MEDS ORDERED: diphenhdrAMINE HCL 25 MG CAP PO PRN (07:45)
[2021-10-07 08:30] VITALS: BP 119/66
[2021-10-07] MEDS: AMIODARONE HCL 200 MG TAB PO SCH (10:00)
[2021-10-07] MEDS: amLODIPine BESYLATE 5 MG TAB PO SCH (10:00)
[2021-10-07] MEDS: MUPIROCIN 2% OINT 15gm or 22gm EACHNOSTRI SCH (11:19)
[2021-10-07] MEDS: HYDROCORTISONE 10 MG TAB PO SCH (11:19)
[2021-10-07] MEDS: GABAPENTIN 100 MG CAP PO SCH (11:20)
[2021-10-07] MEDS: PANTOPRAZOLE 40 MG TAB PO SCH (11:20)
[2021-10-07] MEDS: ENOXAPARIN SOD 30 MG/0.3 ML SYRINGE SC SCH (11:21)
[2021-10-07 12:30] VITALS: BP 127/70
[2021-10-07 14:09] LABS: Basophils # (auto) 0.1 10 ^3/uL (0-0.2); Basophils % (auto) 0.8 % (0.0-2.0); Eosinophils # (auto) 0 10 ^3/uL (0-0.8); Eosinophils % (auto) 0.1 % (0.0-7.0); Hematocrit 24.6 % (41.0-53.0); Hemoglobin 8.1 g/dL (13.5-17.5); Lymphocytes # (auto) 0.4 10 ^3/uL (0.4-5.4); Lymphocytes % (auto) 3.1 % (10.0-50.0); Mean Corpuscular Hemoglobin 31.8 pg (28.0-32.0); Mean Corpuscular Hgb Conc. 33.1 g/dL (32.0-36.0); Monocytes # (auto) 0.5 10 ^3/uL (0-1.3); Monocytes % (auto) 3.9 % (0.0-12.0); Neutrophils % (auto) 92.1 % (37.0-80.0); Red Blood Cells 2.56 10^6/uL (4.5-5.90)
[2021-10-07 14:12] LABS: BUN/Creatinine Ratio 9.1; Calcium 7.8 mg/dL (8.5-10.1); Potassium 3.4 mmol/L (3.5-5.1)
[2021-10-07 14:14] LABS: Red Cell Distribution Width 29.1 % (11.8-14.3)
[2021-10-07 17:00] VITALS: BP 129/83
[2021-10-07 17:35] VITALS: BP 129/83
[2021-10-07 20:00] VITALS: BP_SYST 141; BP_SYST 147; BP_DIAS 71; BP_DIAS 74
[2021-10-07] MEDS ORDERED: EPOETIN ALFA-EPBX 10,000 UNIT/1ML VIAL SC ONE (21:00)
== END 2021-10-07 20:00 | DRG 853 ==
LOC: ER 13:01 → EDBD 13:01 → TELE 17:24 → TELE-CENTR 08-28 17:04 → ICU WEST 08-31 16:58 → TELE-WESTW 09-20 01:04
PROVIDERS: ADMIT Nurse Practitioner Acute Care; ATTEND Internal Medicine
PROC: 02H63KZ Insertion of Defibrillator Lead into Right Atrium, Percutaneous Approach (ICD-10-PCS; 2021-08-26)
PROC: 02HK3KZ Insertion of Defibrillator Lead into Right Ventricle, Percutaneous Approach (ICD-10-PCS; 2021-08-26)
PROC: 0JH608Z Insertion of Defibrillator Generator into Chest Subcutaneous Tissue and Fascia, Open Approach (ICD-10-PCS; 2021-08-26)
PROC: 5A1D70Z Performance of Urinary Filtration, Intermittent, Less than 6 Hours Per Day (ICD-10-PCS; principal; 2021-08-27)
PROC: 0W993ZZ Drainage of Right Pleural Cavity, Percutaneous Approach (ICD-10-PCS; 2021-08-29)
PROC: 05H933Z Insertion of Infusion Device into Right Brachial Vein, Percutaneous Approach (ICD-10-PCS; 2021-08-30)
PROC: B54MZZA Ultrasonography of Right Upper Extremity Veins, Guidance (ICD-10-PCS; 2021-08-30)
PROC: 5A1955Z Respiratory Ventilation, Greater than 96 Consecutive Hours (ICD-10-PCS; 2021-09-02)
PROC: 0BH17EZ Insertion of Endotracheal Airway into Trachea, Via Natural or Artificial Opening (ICD-10-PCS; 2021-09-02)
PROC: 5A1D70Z Performance of Urinary Filtration, Intermittent, Less than 6 Hours Per Day (ICD-10-PCS; 2021-09-03)
PROC: 02HV33Z Insertion of Infusion Device into Superior Vena Cava, Percutaneous Approach (ICD-10-PCS; 2021-09-03)
PROC: B548ZZA Ultrasonography of Superior Vena Cava, Guidance (ICD-10-PCS; 2021-09-03)
PROC: 5A1D70Z Performance of Urinary Filtration, Intermittent, Less than 6 Hours Per Day (ICD-10-PCS; 2021-09-05)
PROC: 30233N1 Transfusion of Nonautologous Red Blood Cells into Peripheral Vein, Percutaneous Approach (ICD-10-PCS; 2021-09-06)
PROC: 5A1D70Z Performance of Urinary Filtration, Intermittent, Less than 6 Hours Per Day (ICD-10-PCS; 2021-09-07)
PROC: 5A1D70Z Performance of Urinary Filtration, Intermittent, Less than 6 Hours Per Day (ICD-10-PCS; 2021-09-10)
PROC: 5A1D70Z Performance of Urinary Filtration, Intermittent, Less than 6 Hours Per Day (ICD-10-PCS; 2021-09-12)
PROC: 5A1D70Z Performance of Urinary Filtration, Intermittent, Less than 6 Hours Per Day (ICD-10-PCS; 2021-09-13)
PROC: 5A1D70Z Performance of Urinary Filtration, Intermittent, Less than 6 Hours Per Day (ICD-10-PCS; 2021-09-15)
PROC: 5A1D70Z Performance of Urinary Filtration, Intermittent, Less than 6 Hours Per Day (ICD-10-PCS; 2021-09-17)
PROC: 5A1D70Z Performance of Urinary Filtration, Intermittent, Less than 6 Hours Per Day (ICD-10-PCS; 2021-09-19)
PROC: 5A1D70Z Performance of Urinary Filtration, Intermittent, Less than 6 Hours Per Day (ICD-10-PCS; 2021-09-23)
PROC: 5A1D70Z Performance of Urinary Filtration, Intermittent, Less than 6 Hours Per Day (ICD-10-PCS; 2021-09-24)
PROC: 30233R1 Transfusion of Nonautologous Platelets into Peripheral Vein, Percutaneous Approach (ICD-10-PCS; 2021-09-25)
PROC: 30233K1 Transfusion of Nonautologous Frozen Plasma into Peripheral Vein, Percutaneous Approach (ICD-10-PCS; 2021-09-25)
PROC: 5A1D70Z Performance of Urinary Filtration, Intermittent, Less than 6 Hours Per Day (ICD-10-PCS; 2021-09-26)
PROC: 0DJD8ZZ Inspection of Lower Intestinal Tract, Via Natural or Artificial Opening Endoscopic (ICD-10-PCS; 2021-09-28)
PROC: 5A1D70Z Performance of Urinary Filtration, Intermittent, Less than 6 Hours Per Day (ICD-10-PCS; 2021-09-29)
PROC: 0DJ08ZZ Inspection of Upper Intestinal Tract, Via Natural or Artificial Opening Endoscopic (ICD-10-PCS; 2021-09-30)
PROC: 5A1D70Z Performance of Urinary Filtration, Intermittent, Less than 6 Hours Per Day (ICD-10-PCS; 2021-10-01)
PROC: 05H933Z Insertion of Infusion Device into Right Brachial Vein, Percutaneous Approach (ICD-10-PCS; 2021-10-02)
PROC: B54MZZA Ultrasonography of Right Upper Extremity Veins, Guidance (ICD-10-PCS; 2021-10-02)
PROC: 5A1D70Z Performance of Urinary Filtration, Intermittent, Less than 6 Hours Per Day (ICD-10-PCS; 2021-10-03)
PROC: 5A1D70Z Performance of Urinary Filtration, Intermittent, Less than 6 Hours Per Day (ICD-10-PCS; 2021-10-07)
DX: A41.81 Sepsis due to Enterococcus (principal); R65.21 Severe sepsis with septic shock; N18.6 End stage renal disease; G93.41 Metabolic encephalopathy; I21.A1 Myocardial infarction type 2; J96.20 Acute and chronic respiratory failure, unspecified whether with hypoxia or hypercapnia; K25.4 Chronic or unspecified gastric ulcer with hemorrhage; K29.81 Duodenitis with bleeding; J18.9 Pneumonia, unspecified organism; I50.21 Acute systolic (congestive) heart failure; I44.2 Atrioventricular block, complete; I13.2 Hypertensive heart and chronic kidney disease with heart failure and with stage 5 chronic kidney disease, or end stage renal disease; E87.1 Hypo-osmolality and hyponatremia; I42.0 Dilated cardiomyopathy; R18.8 Other ascites; J91.8 Pleural effusion in other conditions classified elsewhere; E44.1 Mild protein-calorie malnutrition; E87.6 Hypokalemia; D63.8 Anemia in other chronic diseases classified elsewhere; Z99.2 Dependence on renal dialysis; E87.5 Hyperkalemia; D63.1 Anemia in chronic kidney disease; E03.9 Hypothyroidism, unspecified; E11.649 Type 2 diabetes mellitus with hypoglycemia without coma; E78.5 Hyperlipidemia, unspecified; F03.90 Unspecified dementia, unspecified severity, without behavioral disturbance, psychotic disturbance, mood disturbance, and anxiety; I48.0 Paroxysmal atrial fibrillation; E11.22 Type 2 diabetes mellitus with diabetic chronic kidney disease; E66.01 Morbid (severe) obesity due to excess calories; D69.6 Thrombocytopenia, unspecified; K29.90 Gastroduodenitis, unspecified, without bleeding; K57.30 Diverticulosis of large intestine without perforation or abscess without bleeding; L85.3 Xerosis cutis; L89.90 Pressure ulcer of unspecified site, unspecified stage; Z88.6 Allergy status to analgesic agent; Z68.24 Body mass index [BMI] 24.0-24.9, adult; Z74.01 Bed confinement status; I25.2 Old myocardial infarction
CPT/HCPCS: 32555; 33249; 36415; 36600; 43239; 45378; 70450; 71045; 73030; 74176; 74178; 76604; 76705; 76942; 80048; 80053; 80061; 80076; 80202; 80320; 82040; 82306; 82533; 82565; 82607; 82728; 82805; 82947; 82962; 83036; 83540; 83550; 83735; 83880; 83970; 84100; 84132; 84436; 84443; 84478; 84481; 84484; 85007; 85014; 85018; 85025; 85027; 85379; 85610; 85730; 86704; 86706; 86708; 86803; 86850; 86900; 86901; 86920; 87040; 87077; 87081; 87186; 87205; 87340; 87426; 90935; 92610; 93005; 93306; 93971; 94002; 94003; 94640; 97110; 97163; 99291; C9113; G0378; J0330; J0696; J1642; J1815; J2001; J2250; J2405; J2543; J2704; J3430; J3480; J3490; J7060; P9047; Q9967

== ENCOUNTER 2021-10-16 14:16 | Emergency (ER) | payer MEDICARE, OTHER ==
[~2021-10-16] VITALS: Ht 182.9 cm; Wt 90.7 kg
[~2021-10-16 14:16] MED LIST changes: +ACET325T10 PO; -ALBUAER3 IN; -AMLO-489 PO; -APIX2.5T OR; -ASPI81TA10; -BACL20TA PO; +BISA10SU45 RE; +CALC500C3 PO; -CITA10TA70 PO; -FAMO20TA10 PO; -FER325T PO; -FURO80TA3; -GABA300C11 PO; +GABA400C11 PO; -HYDR-4798 PO; -HYDR50TA32 PO; -INSDRIP IV; -LEV100T PO; +LISI-275 PO; -LISI-716 PO; +MEGE1SUS5 PO; -NIFE90TA49 PO; -SEVE800T8 PO; -SUCR1SUS10 PO; -TEMA15CA PO; -THI100I PO; -[UNRECOGNIZED DRUG - CODE] OR
[2021-10-16] MEDS ORDERED: CALCIUM CHL(10%) 100MG/ML 10ML VIAL IV ONE (14:17)
[2021-10-16] MEDS ORDERED: EPINEPHrine HCL 1 MG/10 ML SYRG IV ONE (14:17)
[2021-10-16] MEDS ORDERED: SODIUM BICARBONATE 8.4% INJ 50ML SYRINGE IV ONE (14:17)
[2021-10-16 14:26] VITALS: BP 0/0
== END 2021-10-16 14:18 ==
LOC: ER 14:16 → EDBD 14:16 → ER 14:18
DX: I46.9 Cardiac arrest, cause unspecified (principal); I13.2 Hypertensive heart and chronic kidney disease with heart failure and with stage 5 chronic kidney disease, or end stage renal disease; E11.22 Type 2 diabetes mellitus with diabetic chronic kidney disease; N18.6 End stage renal disease; I50.9 Heart failure, unspecified; K21.9 Gastro-esophageal reflux disease without esophagitis; E78.5 Hyperlipidemia, unspecified; E03.9 Hypothyroidism, unspecified; Z99.2 Dependence on renal dialysis; Z86.2 Personal history of diseases of the blood and blood-forming organs and certain disorders involving the immune mechanism; Z79.899 Other long term (current) drug therapy; Z88.5 Allergy status to narcotic agent
CPT/HCPCS: 92950; 99285; J0171